=== PATIENT | male | born 1935 | race Caucasian/White ===

== ENCOUNTER → 2017-11-25 10:39 | Outpatient (CLI) | payer MEDICARE, OTHER, SELFPAY ==
[2017-11-25 11:20] LABS: Creatine Kinase 98 U/L (55-170); Magnesium 1.9 mg/dL (1.6-2.3)
== END ==
PROVIDERS: Family Provider Family Medicine; PCP Family Medicine; Visit Provider Internal Medicine Cardiovascular Disease
DX: E78.5 Hyperlipidemia, unspecified (principal); I10 Essential (primary) hypertension
CPT/HCPCS: 36415; 82550; 83735

== ENCOUNTER → 2017-12-02 13:03 | Outpatient (CLI) | payer MEDICARE, OTHER, SELFPAY ==
--- NOTE | 2017-12-02 14:16 | PM.TREADMILL ---
Cardiac Stress Test Report Referral & Results Date Patient Seen: 12/02/17 Time Patient Seen: 14:17 Requesting provider: Mariama Singh Indication: Atrial fibrillation Rest ECG: Unremarkable Procedure Note: After both written and verbal informed consent the patient had an IV started by the diagnostic imaging RN and then was hooked up to the treadmill monitoring system. The patient was then injected with the Pascale scan material. The Cardiolite was then immediately administered. The patient spent an approximately 2 min with upper extremity exercise to increase circulation. The patient had a normal response to all infused materials. Impression: Normal response to infuse materials. No symptoms. No dysrhythmia noted. Perfusion imaging will be reported separately Please note: Actual ECG tracings can be found in the PACS system.
--- NOTE | 2017-12-03 18:14 | DI.NM.S_ITS ---
DATE OF SERVICE: 12/02/2017 PROCEDURE: Pharmacological perfusion study. INDICATIONS: Chest pain with underlying sick sinus syndrome, permanent pacemaker, hypertension, hyperlipidemia, and diabetes mellitus.. RADIOPHARMACEUTICAL: 25.3 mCi technetium-99m Myoview IV was injected at stress and 24.9 mCi technetium-99m Myoview IV was injected at rest. CARDIAC STRESS: Patient underwent pharmacological perfusion study under the supervision of an attending staff using standard IV Lexiscan as per protocol. He remained hemodynamically stable. Tolerated the procedure. There was no significant symptoms. RAW DATA: There was increased subdiaphragmatic activity. Patient's weight is 266 pounds GATED STUDY: Resting stress LV ejection fraction 53%. Stress LV ejection fraction 62%. I don't see any significant wall motion abnormalities. There is no transient ischemic dilatation. TID ratio is 1.00, which is within normal limits. Resting LV end-diastolic volume is 113 mL. Lung/heart ratio is 0.44, which is within normal limits. MYOCARDIAL PERFUSION SCAN: Stress supine and resting supine images were compared to each other. Resting supine images revealed small-sized mildly decreased perfusion of basil inferior wall extending into the basal inferior lateral wall as well as moderately decreased perfusion of distal anterior septum. During stress supine, distal anteroseptal defect got significantly improved. However, patient remain to have [id number] decreased perfusion of basal inferior wall and mildly decreased perfusion of basal inferior lateral wall. CONCLUSION: Patient has predominantly fixed small-sized mildly decreased perfusion of basal inferior lateral wall as well as basal inferior wall which appears to be a little bit worse during stress, especially in the basal inferior wall. However, I'm not convinced with significant ischemic burden. Those fixed defects are in the area of basal inferior wall and basal inferior lateral wall. Patient has increased subdiaphragmatic activity. There is increased uptake near the inferior border of the heart. Inferior wall is moving well. There is a possibility of persistent tissue attenuation artifact. We don't have prone images to distinguish infarction versus tissue attenuation artifact. Overall LV function is preserved. No transient ischemic dilatation. Hence, I will call this study overall low-risk myocardial perfusion study. Clinical correlation is recommended. Will Skinner - JASPER/chary/ doc#: [id number]/job#: [id number] dd: 12/03/2017 12:38:00 dt: 12/03/2017 17:46:00 DICTATING MD/COPIES TO: Mariama Singh MD COPIES MNE: BJ
== END ==
PROVIDERS: Family Provider Family Medicine; PCP Family Medicine; Visit Provider Internal Medicine Cardiovascular Disease
DX: I49.5 Sick sinus syndrome (principal); I48.91 Unspecified atrial fibrillation; R07.89 Other chest pain
CPT/HCPCS: 78452; 93016; 93017; 93018; A9502; J2785

== ENCOUNTER → 2017-12-06 08:10 | Outpatient (CLI) | payer MEDICARE, OTHER, SELFPAY ==
--- NOTE | 2017-12-06 | DI.ECHO.S_ITS ---
[facility] +---------+ : : [address] : : : : [id number] : : : : Phone: [phone]+ Echocardiogram Report + + :Name: NAOMI MARIE Study Date: 12/06/2017 Height: 71 in : :[facility] Exam Location: [facility] Weight: 266 lb : : Gender: Male BSA: 2.4 m2 : :: 1935 Age: 82 yrs BP: 162/85 mmHg: :Reason For Study: TACHY-KOLBY SYNDROME : : Performed By: Jayant Guy : :Referring: ERIC SEXTON : + + Interpretation Summary The left ventricle is normal in size. The ejection fraction is estimated to be 60-65%. There has been no significant change in LV EF since the previous study. Borderline right ventricular enlargement. The right ventricular systolic function is normal. There is a pacemaker lead in the right ventricle. No significant valvular pathology seen. Procedure: A two-dimensional transthoracic echocardiogram with color flow and Doppler was performed. The study quality was technically difficult. Comparison is made with the echocardiogram of 09/27/13. A contrast injection of Definity was performed to improve assessment of LV function. The patient was in normal sinus rhythm during the exam. Left Ventricle: The left ventricle is normal in size. Left ventricular wall thickness is mildly increased. There is no thrombus. The ejection fraction is estimated to be 60-65%. There has been no significant change since the previous study. There are no focal wall motion abnormalities. MV E/A: 1.1 Med Peak E' Don: 15.0 cm/sec E/E' med: 6.3. Right Ventricle: Borderline right ventricular enlargement. There is a pacemaker lead in the right ventricle. The right ventricular systolic function is normal. Atria: The left atrium is mildly dilated. The left atrium has remained unchanged in size since the prior echo exam. Right atrial size is normal. The interatrial septum is intact with no evidence for an atrial septal defect. Mitral Valve: There is mild mitral annular calcification. There is mild mitral regurgitation. Aortic Valve: The aortic valve is trileaflet. The aortic valve opens well. There is no aortic valve stenosis. No aortic regurgitation is present. Tricuspid Valve: The tricuspid valve is normal. There is mild tricuspid regurgitation. Right ventricular systolic pressure is estimated to be 19 mmHg plus the clinically estimated CVP which cannot be estimated on this exam. Pulmonic Valve: The pulmonic valve is not well seen, but is grossly normal. There is mild pulmonic regurgitation. Great Vessels: The aortic root is normal size. The ascending aorta is mildly enlarged. The pulmonary artery is normal size. The inferior vena cava was not well visualized. Pericardium/ Pleura There is no pericardial effusion. There is no pleural effusion. MMode/2D Measurements & Calculations LVIDd: 5.3 cm Ao root diam: 3.6 cm LVIDs: 3.6 cm Aortic Jxn: 3.1 cm FS: 32.8 % asc Aorta Diam: 3.6 cm EPSS: 0.97 cm IVSd: 1.1 cm LVPWd: 0.98 cm LV vega. diameter/BSA (cm/m^2): 2.2 LV sys. diameter/BSA (cm/m^2): 1.5 LA dimension: 3.9 cm RA long axis: 4.6 cm LA A2 area: 27.2 cm2 RA area: 19.6 cm2 LA A4 area: 24.1 cm2 RA vol: 71.1 ml LA length (vol): 6.1 cm RA : 29.8 ml/m2 LA vol: 90.8 ml LA vol index: 38.2 ml/m2 RVD1 (basal): 4.3 cm RVD2 (mid): 3.9 cm Doppler Measurements & Calculations Ao V2 max: 132.6 cm/sec MV E max don: 94.5 cm/sec Ao V2 mean: 102.5 cm/sec MV A max don: 89.6 cm/sec Ao max P.0 mmHg MV E/A: 1.1 Ao mean P.5 mmHg Med Peak E' Don: 15.0 cm/sec Ao V2 VTI: 32.4 cm E/E' med: 6.3 Lat Peak E' Don: 5.8 cm/sec E/E' lat: 16.3 E/e' average: 11.3 MV dec time: 0.22 sec TR max don: 218.6 cm/sec TR max P.1 mmHg PA V2 max: 66.2 cm/sec PA V2 mean: 48.8 cm/sec PA mean P.0 mmHg PA pr(Accel): 51.6 mmHg PA Accel Time: 0.07 sec Reading Physician:COREY
== END ==
PROVIDERS: Family Provider Family Medicine; PCP Family Medicine; Visit Provider Internal Medicine Cardiovascular Disease
DX: I49.5 Sick sinus syndrome (principal); I08.1 Rheumatic disorders of both mitral and tricuspid valves; Z95.0 Presence of cardiac pacemaker
CPT/HCPCS: 36415; 80048; 93306; Q9957

== ENCOUNTER → 2017-12-06 09:56 | Outpatient (CLI) | payer MEDICARE, OTHER, SELFPAY ==
[2017-12-06 10:55] LABS: Blood Urea Nitrogen 22 mg/dL (9-20); Calcium 9.9 mg/dL (8.4-10.2); Carbon Dioxide 28 mmol/L (22-32); Chloride 101 mmol/L (98-107); Estimated Glomerular Filt Rate > 60.0 mL/min (>60); Glucose 133 mg/dL (80-110); HEMOLYSIS < 15 (0-50); Potassium 4.2 mmol/L (3.4-5.1); Sodium 141 mmol/L (137-145)
== END ==
PROVIDERS: Family Provider Family Medicine; PCP Family Medicine; Visit Provider Internal Medicine Cardiovascular Disease
DX: I10 Essential (primary) hypertension (principal)
CPT/HCPCS: 36415; 80048

== ENCOUNTER → 2018-07-01 11:19 | Outpatient (CLI) | payer MEDICARE, OTHER, SELFPAY ==
--- NOTE | 2018-07-01 | DI.RAD.S_ITS ---
PROCEDURE: XR CHEST 2V INDICATIONS: SHORTNESS OF BREATH AND RIGHT SHOULDER PAIN TECHNIQUE: 2 views of the chest were acquired. COMPARISON: [facility], , CHEST 1 VIEW, 01/28/2014, 15:30. FINDINGS: Surgical changes and devices: There is a cardiac pacemaker in expected position. Lungs and pleura: Lungs are clear. No pleural effusions or pneumothorax. Mediastinum: Mediastinal contours are normal. Heart size is normal. Bones and chest wall: No suspicious bony abnormalities. Soft tissues appear unremarkable. IMPRESSION: No acute cardiopulmonary disease. Dictated by: Larry Ndiaye M.D. on 07/01/2018 at 14:47 Approved by: Larry Ndiaye M.D. on 07/01/2018 at 14:48
--- NOTE | 2018-07-01 | DI.RAD.S_ITS ---
PROCEDURE: XR SHOULDER RT MIN 2V INDICATIONS: SHORTNESS OF BREATH AND RIGHT SHOULDER PAIN TECHNIQUE: 3 views of the shoulder were acquired. COMPARISON: [facility], CR, XR CHEST 2V, 07/01/2018, 11:28. FINDINGS: Bones: No fractures or dislocations. No suspicious bony lesions. There are undersurface osteophytes in the distal clavicle and acromion. Moderate degenerative joint of the coracoclavicular joint and glenohumeral joint. Visualized ribs appear intact. Soft tissues: No suspicious soft tissue calcifications. IMPRESSION: 1. Moderate degenerative joint disease. 2. Undersurface osteophytes in the distal clavicle and acromion, which could impinge the rotator cuff tendons. If clinical symptoms persist or clinical suspicion for rotator cuff tendon pathology is high, MRI is suggested for further evaluation. Dictated by: Larry Ndiaye M.D. on 07/01/2018 at 15:09 Approved by: Larry Ndiaye M.D. on 07/01/2018 at 15:12
== END ==
PROVIDERS: Family Provider Family Medicine; PCP Family Medicine; Visit Provider Family Medicine
DX: M25.511 Pain in right shoulder (principal); M19.011 Primary osteoarthritis, right shoulder; M25.711 Osteophyte, right shoulder; R06.02 Shortness of breath; Z95.0 Presence of cardiac pacemaker
CPT/HCPCS: 71046; 73030

== ENCOUNTER → 2018-07-08 13:11 | Outpatient (REF) | payer MEDICARE, OTHER, SELFPAY | LOC: LAB 13:11 | PROVIDERS: Family Provider Family Medicine; PCP Family Medicine; Visit Provider Family Medicine | DX: R05 Cough (principal) | CPT/HCPCS: 87400 ==

== ENCOUNTER → 2018-07-16 10:38 | Outpatient (CLI) | payer MEDICARE, OTHER, SELFPAY ==
--- NOTE | 2018-07-16 | DI.US.S_ITS ---
PROCEDURE: US ARTERIAL DUPLEX LE BI INDICATIONS: CLAUDICATION TECHNIQUE: Color and pulse Doppler interrogation was performed of both lower extremity arterial systems, with image documentation. COMPARISON: None. FINDINGS: Right lower extremity: Common femoral artery: 113 cm/sec, with triphasic flow. Deep femoral artery: 120 cm/sec, with triphasic flow. Proximal superficial femoral artery: 125 cm/sec, with triphasic flow. Mid superficial femoral artery: 128 cm/sec, with triphasic flow. Distal superficial femoral artery: 87 cm/sec, with triphasic flow. Popliteal artery: 68 cm/sec, with triphasic flow. Posterior tibial artery: 93 cm/sec, with triphasic flow. Anterior tibial artery/dorsalis pedis: 81 cm/sec, with triphasic flow. Ansari-scale imaging description: No hemodynamically significant stenosis Left lower extremity: Common femoral artery: 149 cm/sec, with triphasic flow. Deep femoral artery: 79 cm/sec, with triphasic flow. Proximal superficial femoral artery: 117 cm/sec, with triphasic flow. Mid superficial femoral artery: 125 cm/sec, with triphasic flow. Distal superficial femoral artery: 105 cm/sec, with triphasic flow. Popliteal artery: 82 cm/sec, with triphasic flow. Posterior tibial artery: 125 cm/sec, with triphasic flow. Anterior tibial artery/dorsalis pedis: 84 cm/sec, with triphasic flow. Ansari-scale imaging description: No hemodynamically significant stenosis IMPRESSION: No hemodynamically significant stenosis in the bilateral lower extremity arteries. No findings to explain patient's claudication symptoms. Dictated by: Shruthi Gallagher M.D. on 07/16/2018 at 13:31 Approved by: Shruthi Gallagher M.D. on 07/16/2018 at 13:39
== END ==
PROVIDERS: Family Provider Family Medicine; PCP Family Medicine; Visit Provider Family Medicine
DX: I73.9 Peripheral vascular disease, unspecified (principal)
CPT/HCPCS: 93925

== ENCOUNTER 2018-09-01 13:45 | Outpatient (RCR) | payer MEDICARE, OTHER, SELFPAY ==
--- NOTE | 2018-08-13 16:59 | PT.OIE ---
Current Diagnoses Primary osteoarthritis, right shoulder (08/13/18) Pain in right shoulder (08/13/18) Stiffness of right shoulder, not elsewhere classified (08/13/18) Muscle weakness (generalized) (08/13/18) Complete rotator cuff tear or rupture of right shoulder, not specified as traumatic (08/13/18) Provider Visit Care Team Role Provider Type Yoly Pereira MD Family Provider Physician Primary Care Provider Specialty: Family Practice Address: [address] [place] [address], [id number] Email: Javy Breaux MD Attending Provider Physician Specialty: Orthopedic Surgery Address: [address] [place] [address], [id number] Email: [email or web address] Physical Therapy Initial Evaluation PT-OP-A Visit Information Start: 08/13/18 16:28 Freq: Status: Active Protocol: Document 08/13/18 15:15 DCW (Rec: 08/13/18 16:59 DCW [id number]) Out-Patient Physical Therapy Visit Information Visit Information Visit Type Initial Evaluation Visit Start Time 15:15 Visit Stop Time 16:00 Total Visit Minutes 45 Visit Number 1 Number of METAL FABRICATING SUPERVISOR Visits 0 Evaluation Information Evaluation Date 08/13/18 PT-OP-B Current Condition Start: 08/13/18 16:28 Freq: Status: Active Protocol: Document 08/13/18 15:15 DCW (Rec: 08/13/18 16:59 [facility] [id number]) Current Condition History of Current Condition Onset Date Multi-year history Current Complaints Right shoulder pain and stiffness History of Current Condition Pt is an 83 year old male presenting to skilled therapy with a multi-year history of right shoulder pain, weakness, and limited ROM. Pt reports he was told years ago that he had a rotator cuff tear, but now it's finally getting to the point where it is hurting, and seems to be getting worse. Pt reports that he will occasionally experience pain from his lateral neck to his right elbow, and his pain is at its worst when lifting his arm up overhead, or raising an item to countertop level. Pt reports his pain does not limit him from doing anything, he just works through the pain, but does admit that he will occasionally need to use his left arm to lift his right . Prior Treatments and Tests Shoulder X-ray: Moderate degenerative joint disease, undersurface osteophytes in the distal clavicle and acromion, which could impinge the rotator cuff tendons per Larry Ndiaye M.D. on 07/01/2018 Treatment Goals Patient/Caregiver Goals Pt would like to decrease his shoulder pain and improve his mobility. Prior Functional Status Baseline Function- ADL's Independent Baseline Function- Mobility Independent Current Functional Impairments (Reported) Functional Limitations- ADL's Increased pain reaching up to turn off lights or lifting objects to countertop level PT-OP-C Subjective Start: 08/13/18 16:28 Freq: Status: Active Protocol: Document 08/13/18 15:15 DCW (Rec: 08/13/18 16:59 DCW [id number]) OP-PT Subjective Patient Comments Patient Comments I have lots of issues, but I guess I'm here for my shoulder . Patient Questionnaires Quick Dash- Upper Extremity Quick Dash UE Score 11.36 OP-PT Pain Assessment Pain Assessment Grid Paper Pain Assessment Grid Completed Yes Location Right Shoulder Intensity 4 Scale Used Numeric (1 - 10) Description Aching Dull PT-OP-E Functional Tests Start: 08/13/18 16:28 Freq: Status: Active Protocol: Document 08/13/18 15:15 DCW (Rec: 08/13/18 16:59 DCW [id number]) Functional Tests Apley's Scratch Test Action 1: The subject is instructed to touch the opposite shoulder with his/her hand. This motion checks Glenohumeral adduction, internal rotation , horizontal adduction and scapular protraction Action 2: The subject is instructed to place his/her arm overhead and reach behind the neck to touch his/her upper back. This motion checks Glenohumeral abduction, external rotation and scapular upward rotation and elevation. Action 3: The subject puts his/her hand on the lower back and reaches upward as far as possible. This motion checks glenohumeral adduction, internal rotation and scapular retraction with downward rotation Action 1- Left Reach to lateral opposite shoulder Action 1- Right Reach to anterior opposite shoulder Action 2- Left Reach to T2 Action 2- Right Reach to C4 Action 3- Left Reach to T12 Action 3- Right Reach to L4 PT-OP-F Manual Assessment Start: 08/13/18 16:28 Freq: Status: Active Protocol: Document 08/13/18 15:15 DCW (Rec: 08/13/18 16:59 DCW [id number]) Manual Assessments Soft Tissue Assessment Soft Tissue Mobility Assessment Severe, visible tone of right upper trap at later base of neck PT-OP-K Range of Motion Start: 08/13/18 16:28 Freq: Status: Active Protocol: Document 08/13/18 15:15 DCW (Rec: 08/13/18 16:59 DCW [id number]) Shoulder Goniometric Range of Motion Shoulder Measured in Degrees Right Active Shoulder ROM WFL No Testing Position Sitting Flexion 108 Abduction 103 External Rotation at 0 degrees Abduction 50 Left Active Shoulder ROM WFL No Testing Position Sitting Flexion 120 Abduction 112 External Rotation at 0 degrees Abduction 72 Shoulder ROM Limitations Shoulder ROM Limitations Soft Tissue Tightness Bony Restriction Muscle Weakness Muscle Tone Pain PT-OP-L Special Tests Start: 08/13/18 16:28 Freq: Status: Active Protocol: Document 08/13/18 15:15 DCW (Rec: 08/13/18 16:59 DCW [id number]) Special Tests Shoulder Special Tests Painful Arc Test Results Positive Passive ER Rotator Cuff Test Results Positive Lift-Off Rotator Cuff Test Results Negative [place] Ken Impingement Test Results Negative Empty Can Test Results Negative Drop Arm Rotator Cuff Test Results Positive Belly Press Test Results Negative AC Joint Compression Test Results Pain PT-OP-M Strength Start: 08/13/18 16:28 Freq: Status: Active Protocol: Document 08/13/18 15:15 DCW (Rec: 08/13/18 16:59 DCW [id number]) Shoulder Strength Shoulder Manual Muscle Testing Right Flexion 4- Good- Abduction (C5) 3+ Fair+ External Rotation 4- Good- Internal Rotation 5 Normal Left Flexion 4 Good Abduction (C5) 4- Good- External Rotation 5 Normal Internal Rotation 5 Normal PT-OP-Q Treatments Start: 08/13/18 16:28 Freq: Status: Active Protocol: Document 08/13/18 15:15 DCW (Rec: 08/13/18 16:59 DCW [id number]) Therapeutic Exercises Sidelying Exercises Shoulder External Rotation Sidelying Exercise Name Shoulder ER Side bilateral Resistance Lv 2 Equipment Used T-band Standing Exercises Shoulder Internal Rotation Standing Exercise Name Shoulder IR Resistance Lv 2 Equipment Used T-band Shoulder Flexion Standing Exercise Name Flexion Resistance Lv 2 Equipment Used T-band PT-OP-T Assessment and Plan Start: 08/13/18 16:28 Freq: Status: Active Protocol: Document 08/13/18 15:15 DCW (Rec: 08/13/18 16:59 DCW [id number]) Physical Therapy Assessment Rehab Potential Rehabilitation Potential Good Evaluation Complexity Number of Personal Factors/Comorbidities 1-2 Number of Body Systems Impaired 3 Clinical Presentation at Evaluation Evolving Impairments Impairments Activity Tolerance Functional Activities Pain ROM Soft Tissue Mobility Strength Goals Five Impairment bilateral decreased shoulder ROM Short Term Goal (STG) Shoulder flexion bilaterally to 135? STG Duration 09/12/18 Grating Machine Operator Goal (LTG) Shoulder abduction bilaterally to 125? LTG Duration 10/13/18 Four Impairment bilateral shoulder weakness Grating Machine Operator Goal (LTG) B shoulder MMT equal to or greater than 4/5 LTG Duration 10/13/18 Three Impairment Pain with lifting Fdc Goal (LTG) Pt to pickle sorter milk carton and place on counter with no increased pain LTG Duration 10/13/18 Two Impairment Pt has difficulty reaching up to turn off lights Grating Machine Operator Goal (LTG) Pt to report no increased pain turning off his lights LTG Duration 10/13/18 One Impairment Pt does not have an appropriate home exercise program Short Term Goal (STG) Pt to be independent and complaint with an appropriate HEP STG Duration 09/12/18 Assessment Summary Assessment Pt presents with signs and symptoms likely consistent with a 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 Pt's special tests were largely suggestive of supraspinaus involvement. Pt also presents with bilateral shoulder weakness, limited ROM, right shoulder pain, and severe tone at right upper trap, likely due to multiple years of over- compensation. Pt appears very motivated to work on improving strength and ROM to improve his ability to perform pain- free ADLs. Additionally, as per his referral, his wooden cane was assessed for proper height, and may be ~1/2 inch high, but is fairly well within an appropriate height. Pt should benefit from shoulder strengthening, ROM/ flexibility, and manual therapy to reduce upper trap tone. Pt does have a pacemaker , and therefore e-stim in contraindicated. Physical Therapy Plan Frequency and Duration Frequency of Treatment 2x/Week Duration of Treatment 2 months Plan of Care Start Date 08/13/18 Plan of Care End Date 10/13/18 Therapeutic Interventions Therapeutic Interventions Home Exercise Program Joint Mobilizations Manual Therapy Patient/Caregiver Education Self-Care/Home Management Soft Tissue Mobilization Therapeutic Activities Therapeutic Exercises Modalities Cold Pack/Ice Massage Hot Packs Next Visit Focus/Plan Next Note Type Treatment Note Next Visit Plan Shoulder girdle strengthening, stretching, manual therapy to decrease UT tone.
--- NOTE | 2018-08-13 17:00 | PT.OPPOC ---
Current Diagnoses Primary osteoarthritis, right shoulder (08/13/18) Pain in right shoulder (08/13/18) Stiffness of right shoulder, not elsewhere classified (08/13/18) Muscle weakness (generalized) (08/13/18) Complete rotator cuff tear or rupture of right shoulder, not specified as traumatic (08/13/18) Provider Visit Care Team Role Provider Type Yoly Pereira MD Family Provider Physician Primary Care Provider Specialty: Family Practice Address: [address] [place] [address], [id number] Email: Javy Breaux MD Attending Provider Physician Specialty: Orthopedic Surgery Address: [address] [place] [address], [id number] Email: [email or web address] Plan Of Care PT-OP-T Assessment and Plan Start: 08/13/18 16:28 Freq: Status: Active Protocol: Document 08/13/18 15:15 DCW (Rec: 08/13/18 16:59 DCW [id number]) Physical Therapy Assessment Rehab Potential Rehabilitation Potential Good Evaluation Complexity Number of Personal Factors/Comorbidities 1-2 Number of Body Systems Impaired 3 Clinical Presentation at Evaluation Evolving Impairments Impairments Activity Tolerance Functional Activities Pain ROM Soft Tissue Mobility Strength Goals Five Impairment bilateral decreased shoulder ROM Short Term Goal (STG) Shoulder flexion bilaterally to 135? STG Duration 09/12/18 Fpc Goal (LTG) Shoulder abduction bilaterally to 125? LTG Duration 10/13/18 Four Impairment bilateral shoulder weakness Fpc Goal (LTG) B shoulder MMT equal to or greater than 4/5 LTG Duration 10/13/18 Three Impairment Pain with lifting Fpc Goal (LTG) Pt to poultry picker milk carton and place on counter with no increased pain LTG Duration 10/13/18 Two Impairment Pt has difficulty reaching up to turn off lights Landscape Technician Goal (LTG) Pt to report no increased pain turning off his lights LTG Duration 10/13/18 One Impairment Pt does not have an appropriate home exercise program Short Term Goal (STG) Pt to be independent and complaint with an appropriate HEP STG Duration 09/12/18 Assessment Summary Assessment Pt presents with signs and symptoms likely consistent with a 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 Pt's special tests were largely suggestive of supraspinaus involvement. Pt also presents with bilateral shoulder weakness, limited ROM, right shoulder pain, and severe tone at right upper trap, likely due to multiple years of over- compensation. Pt appears very motivated to work on improving strength and ROM to improve his ability to perform pain- free ADLs. Additionally, as per his referral, his wooden cane was assessed for proper height, and may be ~1/2 inch high, but is fairly well within an appropriate height. Pt should benefit from shoulder strengthening, ROM/ flexibility, and manual therapy to reduce upper trap tone. Pt does have a pacemaker , and therefore e-stim in contraindicated. Physical Therapy Plan Frequency and Duration Frequency of Treatment 2x/Week Duration of Treatment 2 months Plan of Care Start Date 08/13/18 Plan of Care End Date 10/13/18 Therapeutic Interventions Therapeutic Interventions Home Exercise Program Joint Mobilizations Manual Therapy Patient/Caregiver Education Self-Care/Home Management Soft Tissue Mobilization Therapeutic Activities Therapeutic Exercises Modalities Cold Pack/Ice Massage Hot Packs Next Visit Focus/Plan Next Note Type Treatment Note Next Visit Plan Shoulder girdle strengthening, stretching, manual therapy to decrease UT tone. Plan of Care Dates Plan of Care Start Date 08/13/18 Plan of Care End Date 10/13/18 Please Sign and Return: I have reviewed this Plan of Care and certify that the skilled therapy services above are required to meet the patient?s needs. Physician Signature Date Printed Name and Credentials Clinical Instructor Signature Printed Name and Credentials
--- NOTE | 2018-08-15 09:00 | PT.OTN ---
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, not specified as traumatic (08/15/18) Physical Therapy Treatment Note PT-OP-A Visit Information Start: 08/13/18 16:28 Freq: Status: Active Protocol: Document 08/15/18 09:00 RCC (Rec: 08/15/18 13:54 RCC [email or web address]) Out-Patient Physical Therapy Visit Information Visit Information Visit Type Treatment Note Visit Start Time 09:00 Visit Stop Time 09:45 Total Visit Minutes 45 Visit Number 2 Number of BILLET RECORDER Visits 0 Evaluation Information Evaluation Date 08/13/18 Precautions Precautions Pacemaker PT-OP-B Current Condition Start: 08/13/18 16:28 Freq: Status: Active Protocol: Document 08/13/18 15:15 DCW (Rec: 08/13/18 16:59 DCW [id number]) Current Condition History of Current Condition Onset Date Multi-year history Current Complaints Right shoulder pain and stiffness History of Current Condition Pt is an 83 year old male presenting to skilled therapy with a multi-year history of right shoulder pain, weakness, and limited ROM. Pt reports he was told years ago that he had a rotator cuff tear, but now it's finally getting to the point where it is hurting, and seems to be getting worse. Pt reports that he will occasionally experience pain from his lateral neck to his right elbow, and his pain is at its worst when lifting his arm up overhead, or raising an item to countertop level. Pt reports his pain does not limit him from doing anything, he just works through the pain, but does admit that he will occasionally need to use his left arm to lift his right . Prior Treatments and Tests Shoulder X-ray: Moderate degenerative joint disease, undersurface osteophytes in the distal clavicle and acromion, which could impinge the rotator cuff tendons per Larry Ndiaye M.D. on 07/01/2018 Treatment Goals Patient/Caregiver Goals Pt would like to decrease his shoulder pain and improve his mobility. Prior Functional Status Baseline Function- ADL's Independent Baseline Function- Mobility Independent Current Functional Impairments (Reported) Functional Limitations- ADL's Increased pain reaching up to turn off lights or lifting objects to countertop level PT-OP-C Subjective Start: 08/13/18 16:28 Freq: Status: Active Protocol: Document 08/15/18 09:00 RCC (Rec: 08/15/18 13:54 RCC [email or web address]) OP-PT Subjective Patient Comments Patient Comments Pt states he forgot his exercises, even though he denied a copy of HEP last visit. Upon attempting to get to supine, pt c/o dizziness, had to lay on L side for treatment when not sitting or standing. PT-OP-E Functional Tests Start: 08/13/18 16:28 Freq: Status: Active Protocol: Document 08/13/18 15:15 DCW (Rec: 08/13/18 16:59 DCW [id number]) Functional Tests Apley's Scratch Test Action 1: The subject is instructed to touch the opposite shoulder with his/her hand. This motion checks Glenohumeral adduction, internal rotation , horizontal adduction and scapular protraction Action 2: The subject is instructed to place his/her arm overhead and reach behind the neck to touch his/her upper back. This motion checks Glenohumeral abduction, external rotation and scapular upward rotation and elevation. Action 3: The subject puts his/her hand on the lower back and reaches upward as far as possible. This motion checks glenohumeral adduction, internal rotation and scapular retraction with downward rotation Action 1- Left Reach to lateral opposite shoulder Action 1- Right Reach to anterior opposite shoulder Action 2- Left Reach to T2 Action 2- Right Reach to C4 Action 3- Left Reach to T12 Action 3- Right Reach to L4 PT-OP-F Manual Assessment Start: 08/13/18 16:28 Freq: Status: Active Protocol: Document 08/13/18 15:15 DCW (Rec: 08/13/18 16:59 DCW [id number]) Manual Assessments Soft Tissue Assessment Soft Tissue Mobility Assessment Severe, visible tone of right upper trap at later base of neck PT-OP-K Range of Motion Start: 08/13/18 16:28 Freq: Status: Active Protocol: Document 08/13/18 15:15 DCW (Rec: 08/13/18 16:59 DCW [id number]) Shoulder Goniometric Range of Motion Shoulder Measured in Degrees Right Active Shoulder ROM WFL No Testing Position Sitting Flexion 108 Abduction 103 External Rotation at 0 degrees Abduction 50 Left Active Shoulder ROM WFL No Testing Position Sitting Flexion 120 Abduction 112 External Rotation at 0 degrees Abduction 72 Shoulder ROM Limitations Shoulder ROM Limitations Soft Tissue Tightness Bony Restriction Muscle Weakness Muscle Tone Pain PT-OP-L Special Tests Start: 08/13/18 16:28 Freq: Status: Active Protocol: Document 08/13/18 15:15 DCW (Rec: 08/13/18 16:59 DCW [id number]) Special Tests Shoulder Special Tests Painful Arc Test Results Positive Passive ER Rotator Cuff Test Results Positive Lift-Off Rotator Cuff Test Results Negative Henderson Ken Impingement Test Results Negative Empty Can Test Results Negative Drop Arm Rotator Cuff Test Results Positive Belly Press Test Results Negative AC Joint Compression Test Results Pain PT-OP-M Strength Start: 08/13/18 16:28 Freq: Status: Active Protocol: Document 08/13/18 15:15 DCW (Rec: 08/13/18 16:59 DCW [id number]) Shoulder Strength Shoulder Manual Muscle Testing Right Flexion 4- Good- Abduction (C5) 3+ Fair+ External Rotation 4- Good- Internal Rotation 5 Normal Left Flexion 4 Good Abduction (C5) 4- Good- External Rotation 5 Normal Internal Rotation 5 Normal PT-OP-Q Treatments Start: 08/13/18 16:28 Freq: Status: Active Protocol: Document 08/15/18 09:00 RCC (Rec: 08/15/18 13:54 RCC [email or web address]) Therapeutic Exercises Sidelying Exercises Shoulder abduction Sidelying Exercise Name shoulder abduction Side right Resistance 0 Reps/Minutes 10 Shoulder External Rotation Sidelying Exercise Name Shoulder ER Side bilateral Resistance Lv 1 Equipment Used T-band Sitting Exercises Shoulder ER Side bilateral Resistance Lv 1 Equipment Used T-band Scapular retraction Side bilateral Resistance Lv 1 Equipment Used T-band Upper trap stretch Side right Reps/Minutes 2x30 sec Comments sitting on hand; manual overpressure for increased stretch Standing Exercises Shoulder Internal Rotation Standing Exercise Name Shoulder IR Resistance Lv 2 Equipment Used T-band Shoulder Flexion Standing Exercise Name Flexion Resistance Lv 1 Equipment Used T-band Manual Therapy Treatment Soft Tissue Mobilization Right upper trap Mobilization Type Rolling Sustained Pressure Trigger Point Release Intensity/Depth Moderate Body Position Sidelying Comments left sidelying PT-OP-R Modalities Start: 08/13/18 16:28 Freq: Status: Active Protocol: Document 08/15/18 09:00 RCC (Rec: 08/15/18 13:54 RCC [email or web address]) Hot Pack/Cold Pack Treatment Cold Pack Location R shoulder Patient Position Sitting Treatment Duration (minutes) 10 Patient Tolerance Good PT-OP-T Assessment and Plan Start: 08/13/18 16:28 Freq: Status: Active Protocol: Document 08/15/18 09:00 RCC (Rec: 08/15/18 13:54 RCC [email or web address]) Physical Therapy Assessment Assessment Summary Assessment Pt with c/o dizziness upon attempting to go L sidelying to supine, but went away staying in L sidelying for 1 min. Pt may benefit from vestibular assessment given onset dizziness with rolling on mat table. Pt reviewed HEP and given handout today. Decreased some resistance to level 1 theraband due to mild c/o pain. Physical Therapy Plan Frequency and Duration Frequency of Treatment 2x/Week Duration of Treatment 2 months Plan of Care Start Date 08/13/18 Plan of Care End Date 10/13/18 Next Visit Focus/Plan Next Note Type Treatment Note Next Visit Plan shoulder girdle strengthening; possible vestibular assessment
--- NOTE | 2018-08-20 16:00 | PT.OTN ---
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, not specified as traumatic (08/20/18) Physical Therapy Treatment Note PT-OP-A Visit Information Start: 08/13/18 16:28 Freq: Status: Active Protocol: Document 08/20/18 15:15 DCW (Rec: 08/20/18 16:00 DCW [id number]) Out-Patient Physical Therapy Visit Information Visit Information Visit Type Treatment Note Visit Start Time 15:15 Visit Stop Time 16:00 Total Visit Minutes 45 Visit Number 3 Number of [employer] COACH Visits 0 Evaluation Information Evaluation Date 08/13/18 Precautions Precautions Pacemaker PT-OP-B Current Condition Start: 08/13/18 16:28 Freq: Status: Active Protocol: Document 08/13/18 15:15 DCW (Rec: 08/13/18 16:59 DCW [id number]) Current Condition History of Current Condition Onset Date Multi-year history Current Complaints Right shoulder pain and stiffness History of Current Condition Pt is an 83 year old male presenting to skilled therapy with a multi-year history of right shoulder pain, weakness, and limited ROM. Pt reports he was told years ago that he had a rotator cuff tear, but now it's finally getting to the point where it is hurting, and seems to be getting worse. Pt reports that he will occasionally experience pain from his lateral neck to his right elbow, and his pain is at its worst when lifting his arm up overhead, or raising an item to countertop level. Pt reports his pain does not limit him from doing anything, he just works through the pain, but does admit that he will occasionally need to use his left arm to lift his right . Prior Treatments and Tests Shoulder X-ray: Moderate degenerative joint disease, undersurface osteophytes in the distal clavicle and acromion, which could impinge the rotator cuff tendons per Larry Ndiaye M.D. on 07/01/2018 Treatment Goals Patient/Caregiver Goals Pt would like to decrease his shoulder pain and improve his mobility. Prior Functional Status Baseline Function- ADL's Independent Baseline Function- Mobility Independent Current Functional Impairments (Reported) Functional Limitations- ADL's Increased pain reaching up to turn off lights or lifting objects to countertop level PT-OP-C Subjective Start: 08/13/18 16:28 Freq: Status: Active Protocol: Document 08/20/18 15:15 DCW (Rec: 08/20/18 16:00 DCW [id number]) OP-PT Subjective Patient Comments Patient Comments Pt reports he thinks that he over-did his exercises at home , but it felt great after his last PT session. PT-OP-E Functional Tests Start: 08/13/18 16:28 Freq: Status: Active Protocol: Document 08/13/18 15:15 DCW (Rec: 08/13/18 16:59 DCW [id number]) Functional Tests Apley's Scratch Test Action 1: The subject is instructed to touch the opposite shoulder with his/her hand. This motion checks Glenohumeral adduction, internal rotation , horizontal adduction and scapular protraction Action 2: The subject is instructed to place his/her arm overhead and reach behind the neck to touch his/her upper back. This motion checks Glenohumeral abduction, external rotation and scapular upward rotation and elevation. Action 3: The subject puts his/her hand on the lower back and reaches upward as far as possible. This motion checks glenohumeral adduction, internal rotation and scapular retraction with downward rotation Action 1- Left Reach to lateral opposite shoulder Action 1- Right Reach to anterior opposite shoulder Action 2- Left Reach to T2 Action 2- Right Reach to C4 Action 3- Left Reach to T12 Action 3- Right Reach to L4 PT-OP-F Manual Assessment Start: 08/13/18 16:28 Freq: Status: Active Protocol: Document 08/13/18 15:15 DCW (Rec: 08/13/18 16:59 DCW [id number]) Manual Assessments Soft Tissue Assessment Soft Tissue Mobility Assessment Severe, visible tone of right upper trap at later base of neck PT-OP-K Range of Motion Start: 08/13/18 16:28 Freq: Status: Active Protocol: Document 08/13/18 15:15 DCW (Rec: 08/13/18 16:59 DCW [id number]) Shoulder Goniometric Range of Motion Shoulder Measured in Degrees Right Active Shoulder ROM WFL No Testing Position Sitting Flexion 108 Abduction 103 External Rotation at 0 degrees Abduction 50 Left Active Shoulder ROM WFL No Testing Position Sitting Flexion 120 Abduction 112 External Rotation at 0 degrees Abduction 72 Shoulder ROM Limitations Shoulder ROM Limitations Soft Tissue Tightness Bony Restriction Muscle Weakness Muscle Tone Pain PT-OP-L Special Tests Start: 08/13/18 16:28 Freq: Status: Active Protocol: Document 08/13/18 15:15 DCW (Rec: 08/13/18 16:59 DCW [id number]) Special Tests Shoulder Special Tests Painful Arc Test Results Positive Passive ER Rotator Cuff Test Results Positive Lift-Off Rotator Cuff Test Results Negative Henderson Ken Impingement Test Results Negative Empty Can Test Results Negative Drop Arm Rotator Cuff Test Results Positive Belly Press Test Results Negative AC Joint Compression Test Results Pain PT-OP-M Strength Start: 08/13/18 16:28 Freq: Status: Active Protocol: Document 08/13/18 15:15 DCW (Rec: 08/13/18 16:59 DCW [id number]) Shoulder Strength Shoulder Manual Muscle Testing Right Flexion 4- Good- Abduction (C5) 3+ Fair+ External Rotation 4- Good- Internal Rotation 5 Normal Left Flexion 4 Good Abduction (C5) 4- Good- External Rotation 5 Normal Internal Rotation 5 Normal PT-OP-Q Treatments Start: 08/13/18 16:28 Freq: Status: Active Protocol: Document 08/20/18 15:15 DCW (Rec: 08/20/18 16:00 DCW [id number]) Cardio Equipment Upper Body Ergometer (UBE) Duration (Minutes) 2 RPM 60 Seat Position 15 Height 3.5 Other Fwd Therapeutic Exercises Sidelying Exercises Shoulder abduction Sidelying Exercise Name shoulder abduction Side right Resistance 0 Reps/Minutes 10 Shoulder External Rotation Sidelying Exercise Name Shoulder ER Side bilateral Equipment Used T-band Sitting Exercises Shoulder Circles Sitting Exercise Name Fwd/Bkwd shoulder circles Side bilateral Upper trap stretch Side right Reps/Minutes 2x30 sec Comments sitting on hand; manual overpressure for increased stretch Standing Exercises Wall Slides Standing Exercise Name Wall Slides Side right Comments Flexion, Abduction Shoulder Adduction Standing Exercise Name Adduction Side bilateral Resistance Lv 1 Equipment Used T-band Shoulder Extension Standing Exercise Name Extension Side bilateral Resistance Lv 1 Equipment Used T-band Manual Therapy Treatment Soft Tissue Mobilization Right upper trap Mobilization Type Rolling Sustained Pressure Trigger Point Release Intensity/Depth Moderate Body Position Sidelying Comments left sidelying PT-OP-R Modalities Start: 08/13/18 16:28 Freq: Status: Active Protocol: Document 08/15/18 09:00 RCC (Rec: 08/15/18 13:54 RCC [email or web address]) Hot Pack/Cold Pack Treatment Cold Pack Location R shoulder Patient Position Sitting Treatment Duration (minutes) 10 Patient Tolerance Good PT-OP-T Assessment and Plan Start: 08/13/18 16:28 Freq: Status: Active Protocol: Document 08/20/18 15:15 DCW (Rec: 08/20/18 16:00 DCW [id number]) Physical Therapy Assessment Impairments Impairments Activity Tolerance Functional Activities Pain ROM Soft Tissue Mobility Strength Goals Five Impairment bilateral decreased shoulder ROM Short Term Goal (STG) Shoulder flexion bilaterally to 135? STG Duration 09/12/18 Attorney Law Clerk Goal (LTG) Shoulder abduction bilaterall to 125? LTG Duration 10/13/18 Four Impairment bilateral shoulder weakness Attorney Law Clerk Goal (LTG) B shoulder MMT equal to or greater than 4/5 LTG Duration 10/13/18 Three Impairment Pain with lifting [facility] Goal (LTG) Pt to sisal picker milk carton and place on counter with no increased pain LTG Duration 10/13/18 Two Impairment Pt has difficulty reaching up to turn off lights Attorney Law Clerk Goal (LTG) Pt to report no increased pain turning off his lights LTG Duration 10/13/18 One Impairment Pt does not have an appropriate home exercise program Short Term Goal (STG) Pt to be independent and complaint with an appropriate HEP STG Duration 09/12/18 Assessment Summary Assessment Pt required a few rest breaks during todays session, but reported he liked these exercises a lot more than those band ones. Pt had no complaints of pain during today's session. Physical Therapy Plan Frequency and Duration Frequency of Treatment 2x/Week Duration of Treatment 2 months Plan of Care Start Date 08/13/18 Plan of Care End Date 10/13/18 Next Visit Focus/Plan Next Note Type Treatment Note Next Visit Plan shoulder girdle strengthening; possible vestibular assessment
--- NOTE | 2018-08-22 15:14 | PT.OTN ---
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, not specified as traumatic (08/22/18) Physical Therapy Treatment Note PT-OP-A Visit Information Start: 08/13/18 16:28 Freq: Status: Active Protocol: Document 08/22/18 14:30 DCW (Rec: 08/22/18 15:14 DCW [id number]) Out-Patient Physical Therapy Visit Information Visit Information Visit Type Treatment Note Visit Start Time 14:30 Visit Stop Time 15:15 Total Visit Minutes 45 Visit Number 4 Number of SUPERVISORY AIDE Visits 0 Evaluation Information Evaluation Date 08/13/18 Precautions Precautions Pacemaker PT-OP-B Current Condition Start: 08/13/18 16:28 Freq: Status: Active Protocol: Document 08/13/18 15:15 DCW (Rec: 08/13/18 16:59 DCW [id number]) Current Condition History of Current Condition Onset Date Multi-year history Current Complaints Right shoulder pain and stiffness History of Current Condition Pt is an 83 year old male presenting to skilled therapy with a multi-year history of right shoulder pain, weakness, and limited ROM. Pt reports he was told years ago that he had a rotator cuff tear, but now it's finally getting to the point where it is hurting, and seems to be getting worse. Pt reports that he will occasionally experience pain from his lateral neck to his right elbow, and his pain is at its worst when lifting his arm up overhead, or raising an item to countertop level. Pt reports his pain does not limit him from doing anything, he just works through the pain, but does admit that he will occasionally need to use his left arm to lift his right . Prior Treatments and Tests Shoulder X-ray: Moderate degenerative joint disease, undersurface osteophytes in the distal clavicle and acromion, which could impinge the rotator cuff tendons per Larry Ndiaye M.D. on 07/01/2018 Treatment Goals Patient/Caregiver Goals Pt would like to decrease his shoulder pain and improve his mobility. Prior Functional Status Baseline Function- ADL's Independent Baseline Function- Mobility Independent Current Functional Impairments (Reported) Functional Limitations- ADL's Increased pain reaching up to turn off lights or lifting objects to countertop level PT-OP-C Subjective Start: 08/13/18 16:28 Freq: Status: Active Protocol: Document 08/22/18 14:30 DCW (Rec: 08/22/18 15:14 DCW [id number]) OP-PT Subjective Patient Comments Patient Comments Pt notes his muscles are a little sore following his therapy session Saturday. PT-OP-E Functional Tests Start: 08/13/18 16:28 Freq: Status: Active Protocol: Document 08/13/18 15:15 DCW (Rec: 08/13/18 16:59 DCW [id number]) Functional Tests Apley's Scratch Test Action 1: The subject is instructed to touch the opposite shoulder with his/her hand. This motion checks Glenohumeral adduction, internal rotation , horizontal adduction and scapular protraction Action 2: The subject is instructed to place his/her arm overhead and reach behind the neck to touch his/her upper back. This motion checks Glenohumeral abduction, external rotation and scapular upward rotation and elevation. Action 3: The subject puts his/her hand on the lower back and reaches upward as far as possible. This motion checks glenohumeral adduction, internal rotation and scapular retraction with downward rotation Action 1- Left Reach to lateral opposite shoulder Action 1- Right Reach to anterior opposite shoulder Action 2- Left Reach to T2 Action 2- Right Reach to C4 Action 3- Left Reach to T12 Action 3- Right Reach to L4 PT-OP-F Manual Assessment Start: 08/13/18 16:28 Freq: Status: Active Protocol: Document 08/13/18 15:15 DCW (Rec: 08/13/18 16:59 DCW [id number]) Manual Assessments Soft Tissue Assessment Soft Tissue Mobility Assessment Severe, visible tone of right upper trap at later base of neck PT-OP-K Range of Motion Start: 08/13/18 16:28 Freq: Status: Active Protocol: Document 08/13/18 15:15 DCW (Rec: 08/13/18 16:59 DCW [id number]) Shoulder Goniometric Range of Motion Shoulder Measured in Degrees Right Active Shoulder ROM WFL No Testing Position Sitting Flexion 108 Abduction 103 External Rotation at 0 degrees Abduction 50 Left Active Shoulder ROM WFL No Testing Position Sitting Flexion 120 Abduction 112 External Rotation at 0 degrees Abduction 72 Shoulder ROM Limitations Shoulder ROM Limitations Soft Tissue Tightness Bony Restriction Muscle Weakness Muscle Tone Pain PT-OP-L Special Tests Start: 08/13/18 16:28 Freq: Status: Active Protocol: Document 08/13/18 15:15 DCW (Rec: 08/13/18 16:59 DCW [id number]) Special Tests Shoulder Special Tests Painful Arc Test Results Positive Passive ER Rotator Cuff Test Results Positive Lift-Off Rotator Cuff Test Results Negative Henderson Ken Impingement Test Results Negative Empty Can Test Results Negative Drop Arm Rotator Cuff Test Results Positive Belly Press Test Results Negative AC Joint Compression Test Results Pain PT-OP-M Strength Start: 08/13/18 16:28 Freq: Status: Active Protocol: Document 08/13/18 15:15 DCW (Rec: 08/13/18 16:59 DCW [id number]) Shoulder Strength Shoulder Manual Muscle Testing Right Flexion 4- Good- Abduction (C5) 3+ Fair+ External Rotation 4- Good- Internal Rotation 5 Normal Left Flexion 4 Good Abduction (C5) 4- Good- External Rotation 5 Normal Internal Rotation 5 Normal PT-OP-Q Treatments Start: 08/13/18 16:28 Freq: Status: Active Protocol: Document 08/22/18 14:30 DCW (Rec: 08/22/18 15:14 DCW [id number]) Cardio Equipment Upper Body Ergometer (UBE) Duration (Minutes) 3 RPM 60 Seat Position 15 Height 3.5 Other Fwd/Bkwd Therapeutic Exercises Sitting Exercises Biceps Curls Sitting Exercise Name Curls Side bilateral Resistance 5# Shoulder Press Sitting Exercise Name Shoulder Press /c wand Resistance 2# Pulleys Sitting Exercise Name GH Flexion Side bilateral Equipment Used Pulleys Standing Exercises Pulleys Standing Exercise Name GH Internal Rotation Side right Equipment Used Pulleys Wall Slides Standing Exercise Name Wall Slides Side right Comments Flexion, Abduction Shoulder Adduction Standing Exercise Name Adduction Side bilateral Resistance Lv 3 Equipment Used T-band Shoulder Extension Standing Exercise Name Extension Side bilateral Resistance Lv 3 Equipment Used T-band Shoulder Internal Rotation Standing Exercise Name Shoulder IR Resistance Lv 3 Equipment Used T-band Other Exercises Resisted UE Lateral Walk Other Exercise Name Lateral UE Walk along rail Side bilateral Resistance Yellow Equipment Used T-band Manual Therapy Treatment Soft Tissue Mobilization Right Pec Mobilization Type Sustained Pressure Trigger Point Release Body Position Sitting Right upper trap Mobilization Type Rolling Sustained Pressure Trigger Point Release Intensity/Depth Moderate Body Position Sitting Joint Mobilizations GH joint Joint Right GH Direction inferior glide Grade III Body Position Sitting PT-OP-R Modalities Start: 08/13/18 16:28 Freq: Status: Active Protocol: Document 08/15/18 09:00 RCC (Rec: 08/15/18 13:54 RCC [id number]) Hot Pack/Cold Pack Treatment Cold Pack Location R shoulder Patient Position Sitting Treatment Duration (minutes) 10 Patient Tolerance Good PT-OP-T Assessment and Plan Start: 08/13/18 16:28 Freq: Status: Active Protocol: Document 08/22/18 14:30 DCW (Rec: 08/22/18 15:14 DCW [id number]) Physical Therapy Assessment Impairments Impairments Activity Tolerance Functional Activities Pain ROM Soft Tissue Mobility Strength Goals Five Impairment bilateral decreased shoulder ROM Short Term Goal (STG) Shoulder flexion bilaterally to 135? STG Duration 09/12/18 Toxicology Teacher Goal (LTG) Shoulder abduction bilaterall to 125? 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 Physical Therapy Plan Frequency and Duration Frequency of Treatment 2x/Week Duration of Treatment 2 months Plan of Care Start Date 08/13/18 Plan of Care End Date 10/13/18 Therapeutic Interventions Therapeutic Interventions Home Exercise Program Joint Mobilizations Manual Therapy Patient/Caregiver Education Self-Care/Home Management Soft Tissue Mobilization Therapeutic Activities Therapeutic Exercises Modalities Cold Pack/Ice Massage Hot Packs Next Visit Focus/Plan Next Note Type Treatment Note Next Visit Plan Shoulder girdle strengthening, stretching, manual therapy to decrease UT tone.
--- NOTE | 2018-08-28 15:17 | PT.OTN ---
Current Diagnoses Primary osteoarthritis, right shoulder (08/28/18) Complete rotator cuff tear or rupture of right shoulder, not specified as traumatic (08/28/18) Physical Therapy Treatment Note PT-OP-A Visit Information Start: 08/13/18 16:28 Freq: Status: Active Protocol: Document 08/28/18 14:30 DCW (Rec: 08/28/18 15:17 DCW [id number]) Out-Patient Physical Therapy Visit Information Visit Information Visit Type Treatment Note Visit Start Time 14:30 Visit Stop Time 15:15 Total Visit Minutes 45 Visit Number 4 Number of BAKER HEAD Visits 0 Evaluation Information Evaluation Date 08/13/18 Precautions Precautions Pacemaker PT-OP-B Current Condition Start: 08/13/18 16:28 Freq: Status: Active Protocol: Document 08/13/18 15:15 DCW (Rec: 08/13/18 16:59 DCW [id number]) Current Condition History of Current Condition Onset Date Multi-year history Current Complaints Right shoulder pain and stiffness History of Current Condition Pt is an 83 year old male presenting to skilled therapy with a multi-year history of right shoulder pain, weakness, and limited ROM. Pt reports he was told years ago that he had a rotator cuff tear, but now it's finally getting to the point where it is hurting, and seems to be getting worse. Pt reports that he will occasionally experience pain from his lateral neck to his right elbow, and his pain is at its worst when lifting his arm up overhead, or raising an item to countertop level. Pt reports his pain does not limit him from doing anything, he just works through the pain, but does admit that he will occasionally need to use his left arm to lift his right . Prior Treatments and Tests Shoulder X-ray: Moderate degenerative joint disease, undersurface osteophytes in the distal clavicle and acromion, which could impinge the rotator cuff tendons per Larry Ndiaye M.D. on 07/01/2018 Treatment Goals Patient/Caregiver Goals Pt would like to decrease his shoulder pain and improve his mobility. Prior Functional Status Baseline Function- ADL's Independent Baseline Function- Mobility Independent Current Functional Impairments (Reported) Functional Limitations- ADL's Increased pain reaching up to turn off lights or lifting objects to countertop level PT-OP-C Subjective Start: 08/13/18 16:28 Freq: Status: Active Protocol: Document 08/28/18 14:30 DCW (Rec: 08/28/18 15:17 DCW [id number]) OP-PT Subjective Patient Comments Patient Comments Pt reports that earlier this week, he was in so much pain he went to see Dr Breaux, who gave him a cortisone injection and noted that he would like him to return in ~4 weeks, and if he had not improve, would be recommending an MRI. PT-OP-E Functional Tests Start: 08/13/18 16:28 Freq: Status: Active Protocol: Document 08/13/18 15:15 DCW (Rec: 08/13/18 16:59 DCW [id number]) Functional Tests Apley's Scratch Test Action 1: The subject is instructed to touch the opposite shoulder with his/her hand. This motion checks Glenohumeral adduction, internal rotation , horizontal adduction and scapular protraction Action 2: The subject is instructed to place his/her arm overhead and reach behind the neck to touch his/her upper back. This motion checks Glenohumeral abduction, external rotation and scapular upward rotation and elevation. Action 3: The subject puts his/her hand on the lower back and reaches upward as far as possible. This motion checks glenohumeral adduction, internal rotation and scapular retraction with downward rotation Action 1- Left Reach to lateral opposite shoulder Action 1- Right Reach to anterior opposite shoulder Action 2- Left Reach to T2 Action 2- Right Reach to C4 Action 3- Left Reach to T12 Action 3- Right Reach to L4 PT-OP-F Manual Assessment Start: 08/13/18 16:28 Freq: Status: Active Protocol: Document 08/13/18 15:15 DCW (Rec: 08/13/18 16:59 DCW [id number]) Manual Assessments Soft Tissue Assessment Soft Tissue Mobility Assessment Severe, visible tone of right upper trap at later base of neck PT-OP-K Range of Motion Start: 08/13/18 16:28 Freq: Status: Active Protocol: Document 08/13/18 15:15 DCW (Rec: 08/13/18 16:59 DCW [id number]) Shoulder Goniometric Range of Motion Shoulder Measured in Degrees Right Active Shoulder ROM WFL No Testing Position Sitting Flexion 108 Abduction 103 External Rotation at 0 degrees Abduction 50 Left Active Shoulder ROM WFL No Testing Position Sitting Flexion 120 Abduction 112 External Rotation at 0 degrees Abduction 72 Shoulder ROM Limitations Shoulder ROM Limitations Soft Tissue Tightness Bony Restriction Muscle Weakness Muscle Tone Pain PT-OP-L Special Tests Start: 08/13/18 16:28 Freq: Status: Active Protocol: Document 08/13/18 15:15 DCW (Rec: 08/13/18 16:59 DCW [id number]) Special Tests Shoulder Special Tests Painful Arc Test Results Positive Passive ER Rotator Cuff Test Results Positive Lift-Off Rotator Cuff Test Results Negative Henderson Ken Impingement Test Results Negative Empty Can Test Results Negative Drop Arm Rotator Cuff Test Results Positive Belly Press Test Results Negative AC Joint Compression Test Results Pain PT-OP-M Strength Start: 08/13/18 16:28 Freq: Status: Active Protocol: Document 08/13/18 15:15 DCW (Rec: 08/13/18 16:59 DCW [id number]) Shoulder Strength Shoulder Manual Muscle Testing Right Flexion 4- Good- Abduction (C5) 3+ Fair+ External Rotation 4- Good- Internal Rotation 5 Normal Left Flexion 4 Good Abduction (C5) 4- Good- External Rotation 5 Normal Internal Rotation 5 Normal PT-OP-Q Treatments Start: 08/13/18 16:28 Freq: Status: Active Protocol: Document 08/28/18 14:30 DCW (Rec: 08/28/18 15:17 DCW [id number]) Cardio Equipment Upper Body Ergometer (UBE) Duration (Minutes) 6 RPM 60 Seat Position 15 Height 3.5 Other Fwd/Bkwd Therapeutic Exercises Sitting Exercises Biceps Curls Sitting Exercise Name Curls Side bilateral Resistance 5# Shoulder Press Sitting Exercise Name Shoulder Press /c wand Resistance 2# Comments Stopped secondary to pain Pulleys Sitting Exercise Name GH Flexion, Abduction Side bilateral Equipment Used Pulleys Shoulder Circles Sitting Exercise Name Fwd/Bkwd shoulder circles Side bilateral Standing Exercises Pulleys Standing Exercise Name GH Internal Rotation Side right Equipment Used Pulleys Wall Slides Standing Exercise Name Wall Slides Side right Comments Flexion, Abduction Manual Therapy Treatment Soft Tissue Mobilization Right Pec Mobilization Type Sustained Pressure Trigger Point Release Body Position Sitting Right upper trap Mobilization Type Rolling Sustained Pressure Trigger Point Release Intensity/Depth Moderate Body Position Sitting Joint Mobilizations GH joint Joint Right GH Direction inferior glide Grade III Body Position Sitting PT-OP-R Modalities Start: 08/13/18 16:28 Freq: Status: Active Protocol: Document 08/15/18 09:00 RCC (Rec: 08/15/18 13:54 RCC [id number]) Hot Pack/Cold Pack Treatment Cold Pack Location R shoulder Patient Position Sitting Treatment Duration (minutes) 10 Patient Tolerance Good PT-OP-T Assessment and Plan Start: 08/13/18 16:28 Freq: Status: Active Protocol: Document 08/28/18 14:30 DCW (Rec: 08/28/18 15:17 DCW [id number]) Physical Therapy Assessment Impairments Impairments Activity Tolerance Functional Activities Pain ROM Soft Tissue Mobility Strength Goals Five Impairment bilateral decreased shoulder ROM Short Term Goal (STG) Shoulder flexion bilaterally to 135? STG Duration 09/12/18 Usp Goal (LTG) Shoulder abduction bilaterall to 125? 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 place on counter with no increased pain LTG Duration 10/13/18 Two Impairment Pt has difficulty reaching up to turn off lights Corrugator Operator Helper Goal (LTG) Pt to report no increased pain turning off his lights LTG Duration 10/13/18 One Impairment Pt does not have an appropriate home exercise program Short Term Goal (STG) Pt to be independent and complaint with an appropriate HEP STG Duration 09/12/18 Assessment Summary Assessment Pt able to tolerate UBE better today and showed improved activity tolerance following his Cortisone injection Saturday, notes his pain has only been able half as much as it was right after the shot. Physical Therapy Plan Frequency and Duration Frequency of Treatment 2x/Week Duration of Treatment 2 months Plan of Care Start Date 08/13/18 Plan of Care End Date 10/13/18 Therapeutic Interventions Therapeutic Interventions Home Exercise Program Joint Mobilizations Manual Therapy Patient/Caregiver Education Self-Care/Home Management Soft Tissue Mobilization Therapeutic Activities Therapeutic Exercises Modalities Cold Pack/Ice Massage Hot Packs Next Visit Focus/Plan Next Note Type Treatment Note Next Visit Plan Shoulder girdle strengthening, stretching, manual therapy to decrease UT tone.
--- NOTE | 2018-09-01 14:31 | PT.OTN ---
Current Diagnoses Primary osteoarthritis, right shoulder (09/01/18) Complete rotator cuff tear or rupture of right shoulder, not specified as traumatic (09/01/18) Physical Therapy Treatment Note PT-OP-A Visit Information Start: 08/13/18 16:28 Freq: Status: Active Protocol: Document 09/01/18 13:45 DCW (Rec: 09/01/18 14:27 DCW [id number]) Out-Patient Physical Therapy Visit Information Visit Information Visit Type Treatment Note Visit Start Time 14:30 Visit Stop Time 15:15 Total Visit Minutes 45 Visit Number 5 Number of PRIMARY THERAPIST Visits 0 Evaluation Information Evaluation Date 08/13/18 Precautions Precautions Pacemaker PT-OP-B Current Condition Start: 08/13/18 16:28 Freq: Status: Active Protocol: Document 08/13/18 15:15 DCW (Rec: 08/13/18 16:59 DCW [id number]) Current Condition History of Current Condition Onset Date Multi-year history Current Complaints Right shoulder pain and stiffness History of Current Condition Pt is an 83 year old male presenting to skilled therapy with a multi-year history of right shoulder pain, weakness, and limited ROM. Pt reports he was told years ago that he had a rotator cuff tear, but now it's finally getting to the point where it is hurting, and seems to be getting worse. Pt reports that he will occasionally experience pain from his lateral neck to his right elbow, and his pain is at its worst when lifting his arm up overhead, or raising an item to countertop level. Pt reports his pain does not limit him from doing anything, he just works through the pain, but does admit that he will occasionally need to use his left arm to lift his right . Prior Treatments and Tests Shoulder X-ray: Moderate degenerative joint disease, undersurface osteophytes in the distal clavicle and acromion, which could impinge the rotator cuff tendons per Larry Ndiaye M.D. on 07/01/2018 Treatment Goals Patient/Caregiver Goals Pt would like to decrease his shoulder pain and improve his mobility. Prior Functional Status Baseline Function- ADL's Independent Baseline Function- Mobility Independent Current Functional Impairments (Reported) Functional Limitations- ADL's Increased pain reaching up to turn off lights or lifting objects to countertop level PT-OP-C Subjective Start: 08/13/18 16:28 Freq: Status: Active Protocol: Document 09/01/18 13:45 DCW (Rec: 09/01/18 14:27 DCW [id number]) OP-PT Subjective Patient Comments Patient Comments Pt reports that his shoulder is not any better, and that he has been having trouble sleeping due to the pain. Notes his radicular pain is all the was down to the elbow now. PT-OP-E Functional Tests Start: 08/13/18 16:28 Freq: Status: Active Protocol: Document 08/13/18 15:15 DCW (Rec: 08/13/18 16:59 DCW [id number]) Functional Tests Apley's Scratch Test Action 1: The subject is instructed to touch the opposite shoulder with his/her hand. This motion checks Glenohumeral adduction, internal rotation , horizontal adduction and scapular protraction Action 2: The subject is instructed to place his/her arm overhead and reach behind the neck to touch his/her upper back. This motion checks Glenohumeral abduction, external rotation and scapular upward rotation and elevation. Action 3: The subject puts his/her hand on the lower back and reaches upward as far as possible. This motion checks glenohumeral adduction, internal rotation and scapular retraction with downward rotation Action 1- Left Reach to lateral opposite shoulder Action 1- Right Reach to anterior opposite shoulder Action 2- Left Reach to T2 Action 2- Right Reach to C4 Action 3- Left Reach to T12 Action 3- Right Reach to L4 PT-OP-F Manual Assessment Start: 08/13/18 16:28 Freq: Status: Active Protocol: Document 08/13/18 15:15 DCW (Rec: 08/13/18 16:59 DCW [id number]) Manual Assessments Soft Tissue Assessment Soft Tissue Mobility Assessment Severe, visible tone of right upper trap at later base of neck PT-OP-K Range of Motion Start: 08/13/18 16:28 Freq: Status: Active Protocol: Document 08/13/18 15:15 DCW (Rec: 08/13/18 16:59 DCW [id number]) Shoulder Goniometric Range of Motion Shoulder Measured in Degrees Right Active Shoulder ROM WFL No Testing Position Sitting Flexion 108 Abduction 103 External Rotation at 0 degrees Abduction 50 Left Active Shoulder ROM WFL No Testing Position Sitting Flexion 120 Abduction 112 External Rotation at 0 degrees Abduction 72 Shoulder ROM Limitations Shoulder ROM Limitations Soft Tissue Tightness Bony Restriction Muscle Weakness Muscle Tone Pain PT-OP-L Special Tests Start: 08/13/18 16:28 Freq: Status: Active Protocol: Document 08/13/18 15:15 DCW (Rec: 08/13/18 16:59 DCW [id number]) Special Tests Shoulder Special Tests Painful Arc Test Results Positive Passive ER Rotator Cuff Test Results Positive Lift-Off Rotator Cuff Test Results Negative Henderson Ken Impingement Test Results Negative Empty Can Test Results Negative Drop Arm Rotator Cuff Test Results Positive Belly Press Test Results Negative AC Joint Compression Test Results Pain PT-OP-M Strength Start: 08/13/18 16:28 Freq: Status: Active Protocol: Document 08/13/18 15:15 DCW (Rec: 08/13/18 16:59 DCW [id number]) Shoulder Strength Shoulder Manual Muscle Testing Right Flexion 4- Good- Abduction (C5) 3+ Fair+ External Rotation 4- Good- Internal Rotation 5 Normal Left Flexion 4 Good Abduction (C5) 4- Good- External Rotation 5 Normal Internal Rotation 5 Normal PT-OP-Q Treatments Start: 08/13/18 16:28 Freq: Status: Active Protocol: Document 09/01/18 13:45 DCW (Rec: 09/01/18 14:27 DCW [id number]) Cardio Equipment Upper Body Ergometer (UBE) Duration (Minutes) 5 RPM 60 Seat Position 13 Height 4.5 Other Fwd/Bkwd Therapeutic Exercises Sitting Exercises Internal Rotation Sitting Exercise Name Shoulder IR Side right Resistance Lv 1 Equipment Used T-band Biceps Curls Sitting Exercise Name Curls Side bilateral Resistance 7# Shoulder Press Sitting Exercise Name Shoulder Press /c wand Resistance 2# Pulleys Sitting Exercise Name GH Flexion, Abduction Side bilateral Equipment Used Pulleys Shoulder ER Side bilateral Resistance Lv 1 Equipment Used T-band Standing Exercises Shoulder Abduction Standing Exercise Name Abduction Resistance 3# Pulleys Standing Exercise Name GH Internal Rotation Side right Equipment Used Pulleys Shoulder Flexion Standing Exercise Name Flexion Resistance 3# Manual Therapy Treatment Soft Tissue Mobilization Right Pec Mobilization Type Sustained Pressure Trigger Point Release Body Position Sitting Right upper trap Mobilization Type Rolling Sustained Pressure Trigger Point Release Intensity/Depth Moderate Body Position Sitting Joint Mobilizations GH joint Joint Right GH Direction inferior glide Grade III Body Position Sitting PT-OP-R Modalities Start: 08/13/18 16:28 Freq: Status: Active Protocol: Document 08/15/18 09:00 RCC (Rec: 08/15/18 13:54 RCC [id number]) Hot Pack/Cold Pack Treatment Cold Pack Location R shoulder Patient Position Sitting Treatment Duration (minutes) 10 Patient Tolerance Good PT-OP-T Assessment and Plan Start: 08/13/18 16:28 Freq: Status: Active Protocol: Document 09/01/18 13:45 DCW (Rec: 09/01/18 14:27 DCW [id number]) Physical Therapy Assessment Impairments Impairments Activity Tolerance Functional Activities Pain ROM Soft Tissue Mobility Strength Goals Five Impairment bilateral decreased shoulder ROM Short Term Goal (STG) Shoulder flexion bilaterally to 135? STG Duration 09/12/18 Mcfp Goal (LTG) Shoulder abduction bilaterall to 125? 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 Physical Therapy Plan Frequency and Duration Frequency of Treatment 2x/Week Duration of Treatment 2 months Plan of Care Start Date 08/13/18 Plan of Care End Date 10/13/18 Therapeutic Interventions Therapeutic Interventions Home Exercise Program Joint Mobilizations Manual Therapy Patient/Caregiver Education Self-Care/Home Management Soft Tissue Mobilization Therapeutic Activities Therapeutic Exercises Modalities Cold Pack/Ice Massage Hot Packs Hold Physical Therapy Reason For Hold Pt would like to return to his physician and discuss continued therapy before scheduling any more appointments. Next Visit Focus/Plan Next Note Type Treatment Note Next Visit Plan Shoulder girdle strengthening, stretching, manual therapy to decrease UT tone.
--- NOTE | 2018-10-29 14:58 | PT.OPDS ---
Current Diagnoses Primary osteoarthritis, right shoulder (09/01/18) Complete rotator cuff tear or rupture of right shoulder, not specified as traumatic (09/01/18) Provider Visit Care Team Role Provider Type Yoly Pereira MD Family Provider Physician Primary Care Provider Specialty: Family Practice Address: [address] [place] [address], [id number] Email: Javy Breaux MD Attending Provider Physician Specialty: Orthopedic Surgery Address: [address] [place] [address], [id number] Email: [email or web address] Visit Number Visit Number 5 Discharge Summary PT-OP-B Current Condition Start: 08/13/18 16:28 Freq: Status: Active Protocol: Document 08/13/18 15:15 DCW (Rec: 08/13/18 16:59 DCW [id number]) Current Condition History of Current Condition Onset Date Multi-year history Current Complaints Right shoulder pain and stiffness History of Current Condition Pt is an 83 year old male presenting to skilled therapy with a multi-year history of right shoulder pain, weakness, and limited ROM. Pt reports he was told years ago that he had a rotator cuff tear, but now it's finally getting to the point where it is hurting, and seems to be getting worse. Pt reports that he will occasionally experience pain from his lateral neck to his right elbow, and his pain is at its worst when lifting his arm up overhead, or raising an item to countertop level. Pt reports his pain does not limit him from doing anything, he just works through the pain, but does admit that he will occasionally need to use his left arm to lift his right . Prior Treatments and Tests Shoulder X-ray: Moderate degenerative joint disease, undersurface osteophytes in the distal clavicle and acromion, which could impinge the rotator cuff tendons per Larry Ndiaye M.D. on 07/01/2018 Treatment Goals Patient/Caregiver Goals Pt would like to decrease his shoulder pain and improve his mobility. Prior Functional Status Baseline Function- ADL's Independent Baseline Function- Mobility Independent Current Functional Impairments (Reported) Functional Limitations- ADL's Increased pain reaching up to turn off lights or lifting objects to countertop level PT-OP-C Subjective Start: 08/13/18 16:28 Freq: Status: Active Protocol: Document 09/01/18 13:45 DCW (Rec: 09/01/18 14:27 DCW [id number]) OP-PT Subjective Patient Comments Patient Comments Pt reports that his shoulder is not any better, and that he has been having trouble sleeping due to the pain. Notes his radicular pain is all the was down to the elbow now. PT-OP-E Functional Tests Start: 08/13/18 16:28 Freq: Status: Active Protocol: Document 08/13/18 15:15 DCW (Rec: 08/13/18 16:59 DCW [id number]) Functional Tests Apley's Scratch Test Action 1- Left Reach to lateral opposite shoulder Action 1- Right Reach to anterior opposite shoulder Action 2- Left Reach to T2 Action 2- Right Reach to C4 Action 3- Left Reach to T12 Action 3- Right Reach to L4 PT-OP-F Manual Assessment Start: 08/13/18 16:28 Freq: Status: Active Protocol: Document 08/13/18 15:15 DCW (Rec: 08/13/18 16:59 DCW [id number]) Manual Assessments Soft Tissue Assessment Soft Tissue Mobility Assessment Severe, visible tone of right upper trap at later base of neck PT-OP-K Range of Motion Start: 08/13/18 16:28 Freq: Status: Active Protocol: Document 08/13/18 15:15 DCW (Rec: 08/13/18 16:59 DCW [id number]) Shoulder Goniometric Range of Motion Shoulder Right Active Shoulder ROM WFL No Testing Position Sitting Flexion 108 Abduction 103 External Rotation at 0 degrees Abduction 50 Left Active Shoulder ROM WFL No Testing Position Sitting Flexion 120 Abduction 112 External Rotation at 0 degrees Abduction 72 Shoulder ROM Limitations Shoulder ROM Limitations Soft Tissue Tightness Bony Restriction Muscle Weakness Muscle Tone Pain PT-OP-L Special Tests Start: 08/13/18 16:28 Freq: Status: Active Protocol: Document 08/13/18 15:15 DCW (Rec: 08/13/18 16:59 DCW [id number]) Special Tests Shoulder Special Tests Painful Arc Test Results Positive Passive ER Rotator Cuff Test Results Positive Lift-Off Rotator Cuff Test Results Negative Henderson Ken Impingement Test Results Negative Empty Can Test Results Negative Drop Arm Rotator Cuff Test Results Positive Belly Press Test Results Negative AC Joint Compression Test Results Pain PT-OP-M Strength Start: 08/13/18 16:28 Freq: Status: Active Protocol: Document 08/13/18 15:15 DCW (Rec: 08/13/18 16:59 DCW [id number]) Shoulder Strength Shoulder Manual Muscle Testing Right Flexion 4- Good- Abduction (C5) 3+ Fair+ External Rotation 4- Good- Internal Rotation 5 Normal Left Flexion 4 Good Abduction (C5) 4- Good- External Rotation 5 Normal Internal Rotation 5 Normal PT-OP-T Assessment and Plan Start: 08/13/18 16:28 Freq: Status: Active Protocol: Document 10/29/18 14:51 DCW (Rec: 10/29/18 14:58 DCW [id number]) Physical Therapy Assessment Goals Five Impairment bilateral decreased shoulder ROM Short Term Goal (STG) Shoulder flexion bilaterally to 135? STG Duration 09/12/18 Table Lever Operator Goal (LTG) Shoulder abduction bilaterall to 125? 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 Pt has now not been seen in two months, and will be discharged from skilled therapy at this time. Physical Therapy Plan Frequency and Duration Frequency of Treatment 2x/Week Duration of Treatment 2 months Plan of Care Start Date 08/13/18 Plan of Care End Date 10/13/18 Therapeutic Interventions Therapeutic Interventions Home Exercise Program Joint Mobilizations Manual Therapy Patient/Caregiver Education Self-Care/Home Management Soft Tissue Mobilization Therapeutic Activities Therapeutic Exercises Modalities Cold Pack/Ice Massage Hot Packs Discharge Physical Therapy Discharge Reasons No Longer Attending PT Next Visit Focus/Plan Next Note Type Discharge Summary
== END 2018-10-29 16:44 ==
LOC: PHYS 13:45
PROVIDERS: Family Provider Family Medicine; PCP Family Medicine; Visit Provider Orthopaedic Surgery
DX: M19.011 Primary osteoarthritis, right shoulder (principal); M75.121 Complete rotator cuff tear or rupture of right shoulder, not specified as traumatic
CPT/HCPCS: 97110; 97140; 97162

== ENCOUNTER → 2020-11-03 11:37 | Outpatient (CLI) | payer MEDICARE, OTHER, SELFPAY ==
[2020-11-03 12:20] LABS: BUN Creatinine Ratio 20.9 (6-22); Blood Urea Nitrogen 18 mg/dL (9-20); Calcium 9.6 mg/dL (8.4-10.2); Carbon Dioxide 33 mmol/L (22-32); Chloride 103 mmol/L (98-107); Estimated Glomerular Filt Rate > 60.0 mL/min (>60); Glucose 153 mg/dL (80-110); HEMOLYSIS < 15 (0-50); Potassium 4.1 mmol/L (3.4-5.1); Sodium 141 mmol/L (137-145)
== END ==
PROVIDERS: Family Provider Family Medicine; PCP Family Medicine; Referring Provider Internal Medicine Cardiovascular Disease; Visit Provider Internal Medicine Cardiovascular Disease
DX: R60.0 Localized edema (principal)
CPT/HCPCS: 36415; 80048

== ENCOUNTER → 2020-12-06 09:21 | Outpatient (CLI) | payer MEDICARE, OTHER, SELFPAY ==
[2020-12-06 10:34] LABS: Hemoglobin A1C% w Est Avg Glu 6.7 % (4.0-6.0)
[2020-12-06 10:41] LABS: Alanine Aminotransferase 29 IU/L (<50); Albumin 4.2 g/dL (3.5-5.0); Albumin Globulin Ratio 1.3 (1.0-2.8); Alkaline Phosphatase 50 U/L (38-126); Aspartate Aminotransferase 37 IU/L (17-59); Blood Urea Nitrogen 21 mg/dL (9-20); Calcium 9.6 mg/dL (8.4-10.2); Carbon Dioxide 28 mmol/L (22-32); Chloride 103 mmol/L (98-107); Cholesterol 150 mg/dL (140-199); Estimated Glomerular Filt Rate > 60.0 mL/min (>60); Globulin 3.3 g/dL (1.7-4.1); Glucose 156 mg/dL (80-110); HDL Cholesterol 33 mg/dL (40-60); HEMOLYSIS < 15 (0-50); LDL Cholesterol Calculated 57 mg/dL (<100); Potassium 4.1 mmol/L (3.4-5.1); Sodium 140 mmol/L (137-145); Total Protein 7.5 g/dL (6.3-8.2); Triglycerides 302 mg/dL (35-150)
[2020-12-06 11:16] LABS: Thyroid Stimulating Hormone 2.71 uIU/mL (0.47-4.68)
== END ==
PROVIDERS: Family Provider Family Medicine; PCP Family Medicine; Referring Provider Family Medicine; Visit Provider Family Medicine
DX: E03.9 Hypothyroidism, unspecified (principal); E11.9 Type 2 diabetes mellitus without complications; I10 Essential (primary) hypertension; E78.5 Hyperlipidemia, unspecified
CPT/HCPCS: 36415; 80053; 80061; 83036; 84443

== ENCOUNTER → 2021-05-15 10:24 | Outpatient (CLI) | payer MEDICARE, OTHER, SELFPAY ==
[2021-05-15 11:55] LABS: Add Manual Diff / Slide Review NO; Basophils Absolute Auto 0 /uL (0-100); Basophils Percent Auto 0.5 % (0-2); Eosinophils Absolute Auto 100 /uL (0-450); Eosinophils Percent Auto 1.8 % (2-4); Hematocrit 44.4 % (41-53); Hemoglobin 14.9 g/dL (13.5-17.5); Lymphocytes Absolute Auto 2000 /uL (1100-4500); Lymphocytes Percent Auto 30.5 % (25-40); Mean Corpuscular HGB Conc 33.5 % (30-36); Mean Corpuscular Hemoglobin 30.5 PG (26-34); Monocytes Absolute Auto 500 /uL (0-900); Monocytes Percent Auto 7.6 % (3-14); Neutrophils Absolute Auto 3900 /uL (1500-7000); Neutrophils Percent Auto 59.6 % (50-75); Platelet Count 265 X10^3/uL (150-400); Red Blood Cell Count 4.88 X10^6/uL (4.5-5.9); Red Cell Distribution Width 15.5 % (11.6-14.8); White Blood Cell Count 6.6 X10^3/uL (4.5-11.0)
[2021-05-15 12:49] LABS: Alanine Aminotransferase 35 IU/L (<50); Albumin 4.4 g/dL (3.5-5.0); Albumin Globulin Ratio 1.4 (1.0-2.8); Alkaline Phosphatase 55 U/L (38-126); Aspartate Aminotransferase 44 IU/L (17-59); BUN Creatinine Ratio 17.8 (6-22); Bilirubin Total 0.9 mg/dL (0.2-1.3); Blood Urea Nitrogen 21 mg/dL (9-20); Calcium 10.4 mg/dL (8.4-10.2); Carbon Dioxide 32 mmol/L (22-32); Chloride 99 mmol/L (98-107); Cholesterol 177 mg/dL (140-199); Globulin 3.1 g/dL (1.7-4.1); Glucose 163 mg/dL (80-110); HDL Cholesterol 36 mg/dL (40-60); HEMOLYSIS < 15 (0-50); LDL Cholesterol Calculated 85 mg/dL (<100); Potassium 3.9 mmol/L (3.4-5.1); Sodium 139 mmol/L (137-145); Total Protein 7.5 g/dL (6.3-8.2); Triglycerides 280 mg/dL (35-150)
[2021-05-15 12:59] LABS: LDL Cholesterol Direct 106 mg/dL (<100)
[2021-05-15 13:03] LABS: Hemoglobin A1C% w Est Avg Glu 7.2 % (4.0-6.0)
[2021-05-15 13:06] LABS: Thyroid Stimulating Hormone 2.05 uIU/mL (0.47-4.68)
[2021-05-15 17:05] LABS: Creatinine Urine Random 194.3 mg/dL
[2021-05-15 17:08] LABS: Microalbumi Creatinin Ratio Ur 15.4 ug/mg CR (<30)
== END ==
PROVIDERS: Family Provider Family Medicine; PCP Family Medicine; Referring Provider Family Medicine; Visit Provider Family Medicine
DX: E11.9 Type 2 diabetes mellitus without complications (principal); E87.6 Hypokalemia; E78.2 Mixed hyperlipidemia; I10 Essential (primary) hypertension; E03.9 Hypothyroidism, unspecified
CPT/HCPCS: 36415; 80053; 80061; 82043; 82570; 83036; 83721; 84443; 85025

== ENCOUNTER → 2021-08-15 08:52 | Outpatient (CLI) | payer MEDICARE, OTHER, SELFPAY ==
[2021-08-15 11:14] LABS: Hemoglobin A1C% w Est Avg Glu 6.8 % (4.0-6.0)
[2021-08-15 12:07] LABS: Alanine Aminotransferase 35 IU/L (<50); Albumin 4.2 g/dL (3.5-5.0); Albumin Globulin Ratio 1.4 (1.0-2.8); Alkaline Phosphatase 48 U/L (38-126); Aspartate Aminotransferase 44 IU/L (17-59); BUN Creatinine Ratio 20.9 (6-22); Bilirubin Total 0.8 mg/dL (0.2-1.3); Blood Urea Nitrogen 23 mg/dL (9-20); Calcium 9.2 mg/dL (8.4-10.2); Carbon Dioxide 30 mmol/L (22-32); Chloride 102 mmol/L (98-107); Cholesterol 199 mg/dL (140-199); Estimated Glomerular Filt Rate > 60.0 mL/min (>60); Globulin 3.1 g/dL (1.7-4.1); Glucose 115 mg/dL (80-110); HDL Cholesterol 40 mg/dL (40-60); HEMOLYSIS < 15 (0-50); LDL Cholesterol Calculated 85 mg/dL (<100); Potassium 4.4 mmol/L (3.4-5.1); Sodium 140 mmol/L (137-145); Total Protein 7.3 g/dL (6.3-8.2); Triglycerides 368 mg/dL (35-150)
== END ==
PROVIDERS: Family Provider Family Medicine; PCP Family Medicine; Referring Provider Family Medicine; Visit Provider Family Medicine
DX: E11.9 Type 2 diabetes mellitus without complications (principal); E78.5 Hyperlipidemia, unspecified; E03.9 Hypothyroidism, unspecified
CPT/HCPCS: 36415; 80053; 80061; 83036; 84443

== ENCOUNTER → 2021-11-27 09:50 | Outpatient (CLI) | payer MEDICARE, OTHER, SELFPAY ==
[2021-11-27 11:03] LABS: Alanine Aminotransferase 41 IU/L (<50); Albumin 4.4 g/dL (3.5-5.0); Albumin Globulin Ratio 1.3 (1.0-2.8); Alkaline Phosphatase 56 U/L (38-126); Aspartate Aminotransferase 47 IU/L (17-59); BUN Creatinine Ratio 15.9 (6-22); Bilirubin Total 0.7 mg/dL (0.2-1.3); Blood Urea Nitrogen 18 mg/dL (9-20); Calcium 9.3 mg/dL (8.4-10.2); Carbon Dioxide 29 mmol/L (22-32); Chloride 101 mmol/L (98-107); Estimated Glomerular Filt Rate > 60 mL/min (>60); Globulin 3.3 g/dL (1.7-4.1); Glucose 123 mg/dL (80-110); HEMOLYSIS < 15 (0-50); Potassium 4.2 mmol/L (3.4-5.1); Sodium 139 mmol/L (137-145); Total Protein 7.7 g/dL (6.3-8.2)
[2021-11-27 11:06] LABS: Hemoglobin A1C% w Est Avg Glu 6.4 % (4.0-6.0)
[2021-11-27 11:13] LABS: LDL Cholesterol Direct 116 mg/dL (<100)
[2021-11-27 12:23] LABS: TSH w/ Reflex to FT4 3.61 uIU/mL (0.47-4.68)
== END ==
PROVIDERS: Family Provider Family Medicine; PCP Family Medicine; Referring Provider Family Medicine; Visit Provider Family Medicine
DX: E11.9 Type 2 diabetes mellitus without complications (principal); E78.2 Mixed hyperlipidemia; E03.9 Hypothyroidism, unspecified
CPT/HCPCS: 36415; 80053; 83036; 83721; 84443

== ENCOUNTER → 2023-01-29 06:39 | Outpatient (CLI) | payer MEDICARE, OTHER, SELFPAY ==
--- NOTE | 2023-01-29 | DI.ECHO.S_ITS ---
[facility]---------+ [facility] +---------+ : : [address] : : : : [id number] : : : : Phone: [phone]+ Echocardiogram Report + + :Name: NAOMI MARIE Study Date: 01/29/2023 Height: 71 in : :[facility] ReadingLocation: Weight: 240 lb : : Gender: Male BSA: 2.3 m2 : :: 1935 Age: 87 yrs BP: 147/85 mmHg: :Reason For Study: HYPERTENSION : :Ordering Physician: CARLIE, : :ERIC Performed By: Krysta Rodrigez : :Referring: ERIC SEXTON : + + Interpretation Summary The left ventricle is normal in size. There is mild concentric left ventricular hypertrophy. The left ventricular ejection fraction is normal. The ejection fraction is estimated to be 60-65%. This is unchanged compared to the previous study. The right ventricle is normal size. The right ventricular systolic function is normal. There is a pacemaker lead in the right ventricle. Mild MR, TR without any significant change from the previous study. Procedure: A two-dimensional transthoracic echocardiogram with color flow and Doppler was performed. The study quality was technically adequate. Comparison is made with the echocardiogram of 12/06/2017. The heart rate ranged between 70 bpm during the study. The patient was in normal sinus rhythm during the exam. Left Ventricle: The left ventricle is normal in size. There is mild concentric left ventricular hypertrophy. There is no thrombus. The ejection fraction is estimated to be 60-65%. The left ventricular ejection fraction is normal. This is unchanged compared to the previous study. There are no focal wall motion abnormalities. Diastolic parameters suggest a relaxation abnormality of the left ventricle, consistent with probable normal filling pressures. Right Ventricle: There is a pacemaker lead in the right ventricle. The right ventricle is normal size. The right ventricular systolic function is normal. Atria: The left atrial size is normal. The left atrium has mildly decreased in size since the prior echo exam. Right atrial size is normal. There is no Doppler evidence for an interatrial shunt. Mitral Valve: There is mild mitral annular calcification. There is mild mitral regurgitation. Compared to the prior echo study, there has been no change in the severity of mitral regurgitation. Aortic Valve: The aortic valve is trileaflet. The aortic valve opens well. The aortic valve is slightly calcified. There is no aortic valve stenosis. No aortic regurgitation is present. Tricuspid Valve: The tricuspid valve is normal in structure and function. There is mild tricuspid regurgitation. Right ventricular systolic pressure is estimated to be 25 mmHg plus the clinically estimated CVP which cannot be estimated on this exam. Compared to the prior echo exam, there has been no change in TR severity. Pulmonic Valve: The pulmonic valve leaflets are thin and pliable; valve motion is normal. There is trace pulmonic regurgitation. Great Vessels: The aortic root is normal size. The dimensions of the ascending aorta are normal. The inferior vena cava was not visualized. Pericardium/ Pleura There is no pericardial effusion. There is no pleural effusion. MMode/2D Measurements & Calculations LVIDd: 4.3 cm LVOT diam: 2.4 cm LVIDs: 2.9 cm Ao root diam: 3.5 cm FS: 32.4 % asc Aorta Diam: 3.3 cm EPSS: 1.3 cm Ao Arch Diam (Prox Trans): 3.0 cm IVSd: 1.2 cm LVPWd: 1.0 cm LV vega. diameter/BSA (cm/m^2): 1.9 LV sys. diameter/BSA (cm/m^2): 1.3 LA A2 area: 18.7 cm2 RA long axis: 4.8 cm LA A4 area: 12.5 cm2 RA area: 12.5 cm2 LA length (vol): 4.1 cm RA vol: 27.7 ml LA vol: 48.0 ml RA : 12.1 ml/m2 LA vol index: 21.1 ml/m2 RVD1 (basal): 3.7 cm TAPSE: 1.8 cm Doppler Measurements & Calculations Ao V2 max: 115.8 cm/sec LVOT Max Don: 83.0 cm/sec Ao V2 mean: 83.0 cm/sec LV V1 max P.8 mmHg Ao max P.4 mmHg LV V1 VTI: 18.5 cm Ao mean P.0 mmHg KARIN(I,D): 3.1 cm2 Ao V2 VTI: 27.5 cm KARIN(V,D): 3.3 cm2 sev ratio: 0.67 KARIN indexed to BSA (cm^2/m^2): 1.3 MV E max don: 72.6 cm/sec TR max don: 248.7 cm/sec MV A max don: 110.7 cm/sec TR max P.8 mmHg MV E/A: 0.66 PA V2 max: 81.1 cm/sec Med Peak E' Don: 5.2 cm/sec PA V2 mean: 59.4 cm/sec E/E' med: 14.0 PA mean P.5 mmHg Lat Peak E' Dno: 5.5 cm/sec PA pr(Accel): 29.3 mmHg E/E' lat: 13.2 E/e' average: 13.6 MV dec time: 0.23 sec SV(LVOT): 84.5 ml Reading Physician:12:38 PM
== END ==
PROVIDERS: Family Provider Family Medicine; PCP Family Medicine; Referring Provider Internal Medicine Cardiovascular Disease; Visit Provider Internal Medicine Cardiovascular Disease
DX: I08.1 Rheumatic disorders of both mitral and tricuspid valves (principal); I47.29 Other ventricular tachycardia; I10 Essential (primary) hypertension
CPT/HCPCS: 93306

== ENCOUNTER → 2023-05-22 14:14 | Outpatient (CLI) | payer MEDICARE, OTHER, SELFPAY ==
[2023-05-22 14:57] LABS: Alanine Aminotransferase 33 IU/L (<50); Albumin 4.3 g/dL (3.5-5.0); Albumin Globulin Ratio 1.1 (1.0-2.8); Alkaline Phosphatase 52 U/L (38-126); Aspartate Aminotransferase 38 IU/L (17-59); BUN Creatinine Ratio 24.8 (6-22); Bilirubin Total 0.7 mg/dL (0.2-1.3); Blood Urea Nitrogen 33 mg/dL (9-20); Carbon Dioxide 31 mmol/L (22-32); Chloride 101 mmol/L (98-107); Estimated Glomerular Filt Rate 52 mL/min (>60); Globulin 3.9 g/dL (1.7-4.1); Glucose 165 mg/dL (80-110); HEMOLYSIS < 15 (0-50); Potassium 3.8 mmol/L (3.4-5.1); Sodium 140 mmol/L (137-145); Total Protein 8.2 g/dL (6.3-8.2)
[2023-05-22 16:53] LABS: Thyroid Stimulating Hormone 5.79 uIU/mL (0.47-4.68)
== END ==
LOC: LAB 14:15
PROVIDERS: Family Provider Family Medicine; PCP Family Medicine; Referring Provider Internal Medicine Cardiovascular Disease; Visit Provider Internal Medicine Cardiovascular Disease
DX: Z79.899 Other long term (current) drug therapy (principal)
CPT/HCPCS: 36415; 80053; 84443

== ENCOUNTER 2023-08-14 23:01 | Emergency (ER) | payer MEDICARE, OTHER, SELFPAY ==
[2023-08-14 23:04] VITALS: BP 184/83; PULSE 70; RESP 20; TEMP 36.4; O2SAT 95; BMI 40.7
--- NOTE | 2023-08-14 23:17 | DI.CT.S_ITS ---
PROCEDURE: CT CERVICAL SPINE WO CON INDICATIONS: fall on thinners TECHNIQUE: Noncontrast 3 mm thick sections acquired from the skull base to the T4 level. Sagittal and coronal reformats were then constructed. For radiation dose reduction, the following was used: automated exposure control, adjustment of mA and/or kV according to patient size. COMPARISON: None. FINDINGS: Image quality: Excellent. Bones: No fractures or dislocations. Loss of normal cervical lordosis. There is multilevel degenerative disc disease, most pronounced and moderate at C5-C6 and C6-C7. Bilateral facet arthropathy, most pronounced and severe at C2-C3, C3-C4 and C4-C5 on the right. There is large bridging anterior osteophyte. Osteopenia. Visualized superior ribs are intact. Soft tissues: Prevertebral soft tissues are normal in thickness. No paravertebral hematomas. No apical pneumothoraces. IMPRESSION: 1. No displaced fracture or traumatic subluxation. 2. Spondylitic changes as described. 3. Osteopenia. Dictated by: Larry Ndiaye M.D. on 08/15/2023 at 0:15 Approved by: Larry Ndiaye M.D. on 08/15/2023 at 0:19
--- NOTE | 2023-08-14 23:17 | DI.CT.S_ITS ---
PROCEDURE: CT HEAD/BRAIN WO CON INDICATIONS: fall on thinners, diabetic TECHNIQUE: Noncontrast 4.5 mm thick angled axial sections acquired from the foramen magnum to the vertex, with coronal and sagittal reformats. For radiation dose reduction, the following was used: automated exposure control, adjustment of mA and/or kV according to patient size. COMPARISON: [facility], CT, HEAD WITHOUT CONTRAST, 01/18/2017, 10:35. FINDINGS: Image quality: Diagnostic. CSF spaces: Basal cisterns are patent. No extra-axial fluid collections. The ventricles are symmetric in size and shape. Brain: There are small foci of hyperdensities in the right parietal lobe compatible with intraparenchymal bleeds. There is vasogenic edema. No intracranial bleeds or masses. There is cerebral volume loss for age, with resultant ventricular and sulcal prominence. There are periventricular and deep white matter chronic small vessel ischemic changes. There is intracranial internal carotid artery atherosclerosis. Skull and face: Calvarium and visualized facial bones appear intact, without suspicious lesions. Sinuses: Visualized sinuses and mastoids are clear. IMPRESSION: 1. Acute intracranial bleed in the right parietal lobe. There is vasogenic edema in the right parietal lobe. The CT findings may be secondary to posttraumatic bleed or a bleeding mass. Recommend contrast-enhanced MRI for follow-up evaluation. 2. Cerebral volume loss and chronic microvascular ischemic changes. The result was discussed with Dr. Carlisle in ER. Dictated by: Larry Ndiaye M.D. on 08/15/2023 at 0:09 Approved by: Larry Ndiaye M.D. on 08/15/2023 at 0:15
[2023-08-14 23:36] LABS: Add Manual Diff / Slide Review NO; Basophils Absolute Auto 100 /uL (0-100); Basophils Percent Auto 1.3 % (0-2); Eosinophils Absolute Auto 100 /uL (0-450); Eosinophils Percent Auto 1.6 % (2-4); Hematocrit 42.2 % (41-53); Hemoglobin 14.5 g/dL (13.5-17.5); Lymphocytes Absolute Auto 1900 /uL (1100-4500); Lymphocytes Percent Auto 24.7 % (25-40); Mean Corpuscular HGB Conc 34.4 % (30-36); Mean Corpuscular Hemoglobin 31.5 PG (26-34); Mean Corpuscular Volume 91.5 fL (80-100); Monocytes Absolute Auto 400 /uL (0-900); Monocytes Percent Auto 5.7 % (3-14); Neutrophils Absolute Auto 5200 /uL (1500-7000); Neutrophils Percent Auto 66.7 % (50-75); Platelet Count 252 X10^3/uL (150-400); Red Blood Cell Count 4.62 X10^6/uL (4.5-5.9); Red Cell Distribution Width 15.5 % (11.6-14.8); White Blood Cell Count 7.8 X10^3/uL (4.5-11.0)
[2023-08-14 23:47] LABS: BUN Creatinine Ratio 27.1 (6-22); Blood Urea Nitrogen 32 mg/dL (9-20); Carbon Dioxide 27 mmol/L (22-32); Chloride 102 mmol/L (98-107); Estimated Glomerular Filt Rate > 60 mL/min (>60); Glucose 171 mg/dL (80-110); HEMOLYSIS 24 (0-50); Sodium 137 mmol/L (137-145)
[2023-08-14 23:49] VITALS: O2SAT 96
[2023-08-15] VITALS (9 sets, daily range): BP systolic 162–190; BP diastolic 70–87; PULSE 70–73; O2SAT 96–98
[2023-08-15 00:30] LABS: INR 1.5 (0.9-1.3); Prothrombin Time 16.9 SECONDS (9.4-12.5)
--- NOTE | 2023-08-15 00:30 | ED.GENADULT ---
HPI - General Adult General Chief complaint: Weakness Stated complaint: near syncope Time Seen by Provider: 08/14/23 23:16 Source: patient, family and EMS Mode of arrival: EMS Limitations: no limitations History of Present Illness HPI narrative: Patient is an 88-year-old male. Is on warfarin secondary to atrial fibrillation/presence of a pacemaker. Also has a acc-civrarr-zmasbaoet diabetic. Is here for evaluation of a injury. Patient states that he was using the restroom this evening. He states he stood up. He went to go wash his hands and had an episode that is somewhat difficult for him to describe. He states that he just felt like he was falling. He felt like his legs gave out from underneath him. He did not have any dizziness. Had no chest pain, palpitations, shortness of breath, headache or vision changes. He did hit the left side of his head on the bathroom wall. No loss of consciousness but was unable to get up on his own. This is the 4th time that this has happened over the past 4-6 months. Prior to the event he was at his baseline health. He does use a walker at baseline to help him ambulate. Reports no injuries to his upper or lower extremities. No neck pain. He currently states that he is relatively asymptomatic except for being somewhat anxious about everything that is going on. He is fairly certain that he did not trip this evening Related Data Home Medications Medication Instructions Recorded Confirmed hydrochlorothiazide 25 mg tablet 25 mg PO QDAY ##0 01/18/17 magnesium chloride 71.5 mg 1 ect PO QDAY ##0 01/18/17 (magnesium chloride) tablet,delayed release (Slow-Mag) pravastatin 40 mg tablet 20 mg PO HS ##0 01/18/17 Allergies Allergy/AdvReac Type Severity Reaction Status Date / Time INGREDIENT: NKA - NO KNOWN Allergy Unknown Uncoded 08/14/17 11:52 ALLERGIES NO KNOWN ALLERGIES - NKA Allergy Unknown Uncoded 08/14/17 11:52 From CRESTOR AdvReac Intermediate I Uncoded 08/14/17 11:52 COULDN'T WALK MUSCLE WEAKEN From LIPITOR AdvReac Intermediate MUSCLE Uncoded 08/14/17 11:52 WEAKNESS Review of Systems Review of Systems ROS Unobtainable: All systems reviewed & are unremarkable except as noted in HPI and below Patient History Social History (Reviewed 04/11/24 @ 01:32 by WILFREDO Mitchell Smoking Status: Former smoker Smoking Status: Former smoker Substance Use Type: does not use Exam Initial Vital Signs Initial Vital Signs: Vital Signs Temperature 97.5 F L 08/14/23 23:04 Pulse Rate 70 08/14/23 23:04 Respiratory Rate 20 08/14/23 23:04 Blood Pressure 184/83 H 08/14/23 23:04 Pulse Oximetry 95 08/14/23 23:04 Oxygen Delivery Method Room Air 08/14/23 23:04 Const General: cooperative, comfortable and No ill appearing HENMT Head: normal to inspection and normocephalic Chest Chest: No crepitus and No tenderness Resp Effort & Inspection: normal respiratory effort Auscultation: clear to auscultation bilaterally Cardio Rate: regular rate Rhythm: regular rhythm GI Inspection: normal to inspection and non-distended Back/Spine/Pelvis Cervical Spine: No cervical spinal tenderness Skin General: no rashes or lesions noted Neuro General: patient alert, patient awake, patient oriented x3 and moves all extremities Cognition: normal cognition Speech: speech normal Motor: muscle tone normal throughout Extrem General: capillary refill normal and edema Psych Appearance: grossly normal and well kempt Scores GCS [place] coma scale eye opening: Spontaneous [place] coma scale verbal response: Orientated Marine coma scale motor response: Obey commands Marine coma scale total score: 15 Course Orders Ordered: ED Orders 08/14/23 23:04 EKG-12 Lead Stat 08/14/23 23:17 CT cervical spine wo con Stat CT head/brain wo con Stat 08/14/23 23:27 Basic Metabolic Panel Stat Complete Blood Count AUTO DIFF Stat 08/15/23 00:15 PTT Partial Thromboplastin Umesh Stat Prothrombin Time INR Stat Nicardipine HCl 25 mg/ Sodium (Chloride) 250 mls @ 50 mls/hr IV TITRATE REA; Protocol Last Admin: 08/15/23 01:48 Dose: 5 mg/hr, 50 mls/hr Documented By: MARISSA Discontinued Medications Diazepam (Diazepam 2 Mg Tablet) 2 mg PO NOW ONE Stop: 08/15/23 01:31 Last Admin: 08/15/23 01:47 Dose: 2 mg Documented By: MARISSA Vital Signs Vital signs: Vital Signs - 8 hr 08/14/23 23:04 08/14/23 23:49 08/15/23 00:00 Temperature 97.5 F L Pulse Rate 70 71 Respiratory Rate 20 Blood Pressure 184/83 H Pulse Oximetry 95 96 97 Oxygen Delivery Method Room Air 08/15/23 00:18 08/15/23 00:18 08/15/23 00:30 Temperature Pulse Rate 73 71 Respiratory Rate Blood Pressure 169/79 H Pulse Oximetry 96 97 Oxygen Delivery Method Room Air 08/15/23 00:30 08/15/23 01:00 08/15/23 01:01 Temperature Pulse Rate 70 71 Respiratory Rate Blood Pressure 167/76 H Pulse Oximetry 98 97 Oxygen Delivery Method Room Air 08/15/23 01:01 08/15/23 01:24 08/15/23 01:24 Temperature Pulse Rate 70 Respiratory Rate Blood Pressure 190/87 H 174/78 H 169/77 H Pulse Oximetry 97 Oxygen Delivery Method 08/15/23 01:30 08/15/23 01:30 08/15/23 01:58 Temperature Pulse Rate 70 70 Respiratory Rate Blood Pressure 174/78 H Pulse Oximetry 97 98 Oxygen Delivery Method 08/15/23 01:58 08/15/23 02:00 08/15/23 02:00 Temperature Pulse Rate 71 Respiratory Rate Blood Pressure 179/75 H 162/70 H Pulse Oximetry 97 Oxygen Delivery Method Room Air Medical Decision Making Lab Data Lab results reviewed: Yes I reviewed the patient's lab results. 08/14/23 23:27 08/14/23 23:27 Labs: Lab Results 08/14/23 Range/Units 23:27 WBC 7.8 (4.5-11.0) X10^3/uL RBC 4.62 (4.5-5.9) X10^6/uL Hgb 14.5 (13.5-17.5) g/dL Hct 42.2 (41-53) % MCV 91.5 (80-100) fL MCH 31.5 (26-34) PG MCHC 34.4 (30-36) % RDW 15.5 H (11.6-14.8) % Plt Count 252 (150-400) X10^3/uL Neut % (Auto) 66.7 (50-75) % Lymph % (Auto) 24.7 L (25-40) % Luna % (Auto) 5.7 (3-14) % Eos % (Auto) 1.6 L (2-4) % Baso % (Auto) 1.3 (0-2) % Neut # (Auto) 5200 (6458-4937) /uL Lymph # (Auto) 1900 (3105-3979) /uL Luna # (Auto) 400 (0-900) /uL Eos # (Auto) 100 (0-450) /uL Baso # (Auto) 100 (0-100) /uL PT 16.9 H (9.4-12.5) SECONDS INR 1.5 H (0.9-1.3) APTT 44 H (25.1-36.5) SECONDS Sodium 137 (137-145) mmol/L Potassium 4.0 (3.4-5.1) mmol/L Chloride 102 (98-107) mmol/L Carbon Dioxide 27 (22-32) mmol/L BUN 32 H (9-20) mg/dL Creatinine 1.18 (0.66-1.25) mg/dL Estimated GFR > 60 (>60) mL/min BUN/Creatinine Ratio 27.1 H (6-22) Glucose 171 H (80-110) mg/dL Calcium 10.0 (8.4-10.2) mg/dL Imaging Data CT scan - head: Radiologist's Impression: PROCEDURE: CT HEAD/BRAIN WO CON INDICATIONS: fall on thinners, diabetic TECHNIQUE: Noncontrast 4.5 mm thick angled axial sections acquired from the foramen magnum to the vertex, with coronal and sagittal reformats. For radiation dose reduction, the following was used: automated exposure control, adjustment of mA and/or kV according to patient size. COMPARISON: [facility], CT, HEAD WITHOUT CONTRAST, 01/18/2017, 10:35. FINDINGS: Image quality: Diagnostic. CSF spaces: Basal cisterns are patent. No extra-axial fluid collections. The ventricles are symmetric in size and shape. Brain: There are small foci of hyperdensities in the right parietal lobe compatible with intraparenchymal bleeds. There is vasogenic edema. No intracranial bleeds or masses. There is cerebral volume loss for age, with resultant ventricular and sulcal prominence. There are periventricular and deep white matter chronic small vessel ischemic changes. There is intracranial internal carotid artery atherosclerosis. Skull and face: Calvarium and visualized facial bones appear intact, without suspicious lesions. Sinuses: Visualized sinuses and mastoids are clear. IMPRESSION: 1. Acute intracranial bleed in the right parietal lobe. There is vasogenic edema in the right parietal lobe. The CT findings may be secondary to posttraumatic bleed or a bleeding mass. Recommend contrast-enhanced MRI for follow-up evaluation. 2. Cerebral volume loss and chronic microvascular ischemic changes. The result was discussed with Dr. Carlisle in ER. CT - cervical spine: Radiologist's Impression: PROCEDURE: CT CERVICAL SPINE WO CON INDICATIONS: fall on thinners TECHNIQUE: Noncontrast 3 mm thick sections acquired from the skull base to the T4 level. Sagittal and coronal reformats were then constructed. For radiation dose reduction, the following was used: automated exposure control, adjustment of mA and/or kV according to patient size. COMPARISON: None. FINDINGS: Image quality: Excellent. Bones: No fractures or dislocations. Loss of normal cervical lordosis. There is multilevel degenerative disc disease, most pronounced and moderate at C5-C6 and C6-C7. Bilateral facet arthropathy, most pronounced and severe at C2-C3, C3-C4 and C4-C5 on the right. There is large bridging anterior osteophyte. Osteopenia. Visualized superior ribs are intact. Soft tissues: Prevertebral soft tissues are normal in thickness. No paravertebral hematomas. No apical pneumothoraces. IMPRESSION: 1. No displaced fracture or traumatic subluxation. 2. Spondylitic changes as described. 3. Osteopenia. ECG Data Attestation: I personally reviewed and interpreted this ECG as follows: Interpretation: Atrially paced Ventricular rate is 70 Normal axis QRS [address] T wave changes MDM Narrative Medical decision making narrative: Modified trauma secondary to fall on anticoagulation. Patient is alert and oriented x3. GCS of 15. His INR is 1.5 so will hold on any reversal of his warfarin. Cervical spine CT is unremarkable. Head CT shows intraparenchymal bleed which is somewhat unusual for a traumatic injury. There was some question about a underlying mass. The patient does not have any diagnosis of malignancy. Initial blood pressure elevated at 190/87. This improved to the 160s systolic without specific intervention. I did discuss the case with Dr. Francisco with Neurosurgery at [facility] who accepts the patient for transfer. Patient is stable for transport. Discussed the diagnosis and the need for transfer with the patient and his at bedside. They expressed understanding and agreement. The patient is a full code. Discharge Plan Departure Patient Disposition: Xfer Acute Care Hospital Clinical Impression: Intraparenchymal hemorrhage of brain Prescriptions: No Action magnesium chloride [Slow-Mag] 71.5 MG tablet,delayed release (DR/EC) 1 ect PO QDAY Qty: 0 pravastatin 40 MG tablet 20 mg PO HS Qty: 0 hydrochlorothiazide 25 MG tablet 25 mg PO QDAY Qty: 0 Referrals: Yoly Pereira MD [Primary Care Provider] -
[2023-08-15 00:32] LABS: PTT Partial Thromboplastin Tim 44 SECONDS (25.1-36.5)
[2023-08-15] MEDS: diazePAM 2 MG TABLET PO (01:47)
[2023-08-15] MEDS: NICARDIPINE 25 MG in SODIUM CHLORIDE 0.9% 240 ML 50 MG IV (01:48)
--- NOTE | 2023-08-28 12:22 | PC.NURSE ---
late entry- per RN the patient was transferred to [facility] with Nicardipine drip infusing.
== END 2023-08-15 02:20 | disposition short-term general hospital (02) ==
PROVIDERS: Emergency Provider Emergency Medicine; Family Provider Family Medicine; PCP Family Medicine
DX: S06.2X0A Diffuse traumatic brain injury without loss of consciousness, initial encounter (principal); R55 Syncope and collapse; Z79.01 Long term (current) use of anticoagulants
CPT/HCPCS: 36415; 70450; 72125; 80048; 85025; 85610; 85730; 93005; 93010; 96365; 99284

== ENCOUNTER → 2023-10-14 08:39 | Outpatient (CLI) | payer MEDICARE, OTHER, SELFPAY ==
--- NOTE | 2023-10-14 | DI.US.S_ITS ---
PROCEDURE: US PERIPH VENOUS LOW EXTREM RT INDICATIONS: WORSENING PERFUSION DUE TO HX OF DVT TECHNIQUE: Real-time imaging, as well as color and pulse Doppler interrogation, were performed of the lower extremity deep veins from the inguinal ligament to the popliteal fossa, with documentation of the visualized calf veins. COMPARISON: None. FINDINGS: The common femoral, femoral, popliteal, and the visualized calf veins are normally compressible, and free of intraluminal thrombus. Color and pulse Doppler demonstrate normal phasic intraluminal flow. There is normal augmentation response to distal compression maneuver. IMPRESSION: No findings of lower extremity deep venous thrombosis. Dictated by: Shruthi Gallagher M.D. on 10/14/2023 at 14:20 Approved by: Shruthi Gallagher M.D. on 10/14/2023 at 14:20
== END ==
PROVIDERS: Family Provider Family Medicine; PCP Family Medicine; Referring Provider Registered Nurse; Visit Provider Registered Nurse
DX: I82.401 Acute embolism and thrombosis of unspecified deep veins of right lower extremity (principal)
CPT/HCPCS: 93971

== ENCOUNTER 2023-10-23 16:38 | Inpatient (IN) | payer MEDICARE, OTHER, SELFPAY ==
[2023-10-23] VITALS (27 sets, daily range): BP systolic 81–146; BP diastolic 42–91; PULSE 69–80; RESP 14–26; TEMP 36.8; O2SAT 92–98; BMI 29.2
--- NOTE | 2023-10-23 16:58 | EKG_ITS ---
[address] [address] Test Date: 2023-10-23 Pat Name: Will Skinner Department: Room: 90B Gender: Male Assessment Analyst: JAYLA : [id number] Requested By: Order Number: [id number] Reading MD: Gael Del Cid Measurements Intervals [place] Rate: 70 P: OK: 192 QRS: 36 QRSD: 74 T: 71 QT: 402 QTc: 434 Interpretive Statements Atrial-paced rhythm Electronically Signed On 10-25-2023 16:16:00 PDT by Gael Del Cid
[2023-10-23 17:07] LABS: Add Manual Diff / Slide Review NO; Basophils Absolute Auto 100 /uL (0-100); Basophils Percent Auto 0.9 % (0-2); Eosinophils Absolute Auto 0 /uL (0-450); Eosinophils Percent Auto 0.1 % (2-4); Hematocrit 41.1 % (41-53); Lymphocytes Absolute Auto 1500 /uL (1100-4500); Lymphocytes Percent Auto 21.4 % (25-40); Mean Corpuscular HGB Conc 34.1 % (30-36); Mean Corpuscular Hemoglobin 31.3 PG (26-34); Mean Corpuscular Volume 91.6 fL (80-100); Monocytes Absolute Auto 100 /uL (0-900); Monocytes Percent Auto 1.6 % (3-14); Neutrophils Absolute Auto 5200 /uL (1500-7000); Platelet Count 216 X10^3/uL (150-400); Red Blood Cell Count 4.49 X10^6/uL (4.5-5.9); Red Cell Distribution Width 17.5 % (11.6-14.8); White Blood Cell Count 6.9 X10^3/uL (4.5-11.0)
[2023-10-23 17:12] LABS: Alanine Aminotransferase 38 IU/L (<50); Albumin 3.4 g/dL (3.5-5.0); Albumin Globulin Ratio 1.2 (1.0-2.8); Alkaline Phosphatase 53 U/L (38-126); Aspartate Aminotransferase 27 IU/L (17-59); Bilirubin Total 0.8 mg/dL (0.2-1.3); Blood Urea Nitrogen 38 mg/dL (9-20); Carbon Dioxide 29 mmol/L (22-32); Chloride 102 mmol/L (98-107); Estimated Glomerular Filt Rate > 60 mL/min (>60); Globulin 2.9 g/dL (1.7-4.1); Glucose 206 mg/dL (80-110); HEMOLYSIS 28 (0-50); Lipase 93 U/L (23-300); Potassium 4.5 mmol/L (3.4-5.1); Sodium 136 mmol/L (137-145); Total Protein 6.3 g/dL (6.3-8.2)
--- NOTE | 2023-10-23 18:36 | ED_ITS ---
HPI - Abdominal Pain General Chief Complaint: Abdominal Pain Stated Complaint: L Abd px Time Seen by Provider: 10/23/23 18:13 Source: patient and EMS Mode of arrival: EMS History of Present Illness HPI narrative: 88-year-old male with recently diagnosed glioblastoma (currently awaiting radiation treatment at [facility]) presents by EMS from home for abdominal pain. Patient began suddenly earlier today and has been constant since onset. Everything makes it worse, nothing seems to make it better. No medications taken prior to arrival. Reports previous history of appendectomy and cholecystectomy. Related Data Home Medications Medication Instructions Recorded Confirmed hydrochlorothiazide 25 mg tablet 25 mg PO QDAY ##0 01/18/17 magnesium chloride 71.5 mg 1 ect PO QDAY ##0 01/18/17 (magnesium chloride) tablet,delayed release (Slow-Mag) pravastatin 40 mg tablet 20 mg PO HS ##0 01/18/17 Allergies Allergy/AdvReac Type Severity Reaction Status Date / Time INGREDIENT: NKA - NO KNOWN Allergy Unknown Uncoded 08/14/17 11:52 ALLERGIES NO KNOWN ALLERGIES - NKA Allergy Unknown Uncoded 08/14/17 11:52 From CRESTOR AdvReac Intermediate I Uncoded 08/14/17 11:52 COULDN'T WALK MUSCLE WEAKEN From LIPITOR AdvReac Intermediate MUSCLE Uncoded 08/14/17 11:52 WEAKNESS Patient History Social History Smoking Status: Former smoker alcohol intake: former Smoking Status: Former smoker Substance Use Type: does not use Exam Initial Vital Signs Initial Vital Signs: Vital Signs Pulse Rate 70 10/23/23 16:46 Pulse Oximetry 94 10/23/23 16:46 Const: Awake, alert, ill-appearing, appears chronically unwell Cardiac: regular rate, regular rhythm RESP: unlabored, clear bilaterally, no wheezing GI: Soft, diffuse abdominal tenderness to palpation with rebound Skin: Warm, Dry, intact, no rashes Neuro: AO x3, CN II-XII grossly intact, moves all extremities Course Orders Ordered: ED Orders 10/23/23 18:35 CT abdomen pelvis w con Stat 10/24/23 01:11 Consult to Discharge Planning Routine LDH [Lactate Dehydrogenase] Routine Education, smoking cessation ONGOING 10/24/23 05:00 Basic Metabolic Panel Routine Complete Blood Count AUTO DIFF Routine Hydromorphone HCl (Hydromorphone 0.5 Mg Inj) 0.5 mg IV Q3H PRN PRN Reason: Pain, Moderate (4-6) Hydromorphone HCl (Hydromorphone 1 Mg Inj) 1 mg IV Q3H PRN PRN Reason: Pain, Severe (7-10) NOREPINEPHRINE BITARTRATE/D5W (Levophed) 4 mg in 250 mls @ 35.72 mls/hr IV TITRATE REA; Protocol Last Titration: 10/24/23 01:32 Dose: 0.08 mcg/kg/min, 28.576 mls/hr Documented By: Admin: 10/24/23 00:08 Dose: 0.1 mcg/kg/min, 35.72 mls/hr Documented By: JOE Sodium Chloride (Normal Saline 0.9%) 1,000 mls @ 135 mls/hr IV CONT REA Last Admin: 10/24/23 01:36 Dose: 135 mls/hr Documented By: JEFF Acetaminophen (Ofirmev) 1,000 mg in 100 mls @ 400 mls/hr IV Q6H PRN PRN Reason: Fever/Mild Pain (1-3) Piperacillin Sod/Tazobactam (Sod 4.5 gm/ Sodium Chloride) 100 mls @ 25 mls/hr IV Q8H [facility] Last Admin: 10/24/23 01:36 Dose: 25 mls/hr Documented By: JEFF Ketorolac Tromethamine (Ketorolac 30 Mg/Ml Vial) 15 mg IV Q8H REA Stop: 10/29/23 01:59 Last Admin: 10/24/23 01:35 Dose: Not Given Documented By: JEFF Naloxone HCl (Naloxone 0.4 Mg/Ml Vial) 0.2 mg IV Q2MIN PRN PRN Reason: Opiate Reversal Ondansetron HCl (Ondansetron 4 Mg/2 Ml Inj) 4 mg IV Q8HR PRN PRN Reason: Nausea And Vomiting Pantoprazole Sodium (Pantoprazole 40 Mg Vial) 20 mg IV DAILY [facility] Discontinued Medications Hydromorphone HCl (Hydromorphone 1 Mg Inj) 1 mg IV NOW ONE Stop: 10/23/23 20:15 Last Admin: 10/23/23 20:18 Dose: 1 mg Documented By: JOE Piperacillin Sod/Tazobactam (Sod 4.5 gm/ Sodium Chloride) 100 mls @ 200 mls/hr IV NOW ONE Stop: 10/23/23 19:30 Last Infusion: 10/23/23 20:18 Dose: Infused Documented By: Admin: 10/23/23 19:45 Dose: 200 mls/hr Documented By: JOE Sodium Chloride (Normal Saline 0.9%) 1,000 mls @ 1,000 mls/hr IV BOLUS ONE Stop: 10/23/23 21:51 Last Infusion: 10/23/23 22:50 Dose: Infused Documented By: Admin: 10/23/23 20:53 Dose: 1,000 mls/hr Documented By: JOE Sodium Chloride (Normal Saline 0.9%) 1,000 mls @ 1,000 mls/hr IV BOLUS ONE Stop: 10/23/23 23:57 Last Infusion: 10/24/23 00:12 Dose: Infused Documented By: Admin: 10/23/23 23:03 Dose: 1,000 mls/hr Documented By: JOE Morphine Sulfate (Morphine 4 Mg/Ml Inj) 4 mg IV NOW ONE Stop: 10/23/23 18:36 Last Admin: 10/23/23 18:43 Dose: 4 mg Documented By: SEAN Ondansetron HCl (Ondansetron 4 Mg/2 Ml Inj) 4 mg IV NOW PRN PRN Reason: Nausea And Vomiting Ondansetron HCl (Ondansetron 4 Mg Odt) 4 mg PO NOW PRN PRN Reason: Nausea And Vomiting Ondansetron HCl (Ondansetron 4 Mg/2 Ml Inj) 4 mg IV NOW ONE Stop: 10/23/23 18:36 Last Admin: 10/23/23 18:44 Dose: Not Given Documented By: SEAN Vital Signs Vital signs: Vital Signs - 8 hr 10/23/23 18:30 10/23/23 18:30 10/23/23 18:45 Pulse Rate 70 Respiratory Rate 24 Blood Pressure 103/56 L 107/55 L Pulse Oximetry 95 Oxygen Delivery Method 10/23/23 18:45 10/23/23 18:48 10/23/23 18:48 Pulse Rate 71 69 Respiratory Rate 23 23 Blood Pressure 108/61 Pulse Oximetry 96 96 Oxygen Delivery Method 10/23/23 18:50 10/23/23 18:50 10/23/23 19:00 Pulse Rate 74 Respiratory Rate 21 Blood Pressure 104/56 L 105/58 L Pulse Oximetry 96 Oxygen Delivery Method 10/23/23 19:00 10/23/23 19:21 10/23/23 19:21 Pulse Rate 69 74 Respiratory Rate 17 18 Blood Pressure 96/66 Pulse Oximetry 95 96 Oxygen Delivery Method 10/23/23 19:30 10/23/23 19:30 10/23/23 20:00 Pulse Rate 72 80 Respiratory Rate 16 19 Blood Pressure 109/57 L Pulse Oximetry 97 98 Oxygen Delivery Method 10/23/23 20:00 10/23/23 20:20 10/23/23 20:30 Pulse Rate 69 Respiratory Rate 18 Blood Pressure 100/54 L 100/54 L 90/48 L Pulse Oximetry 95 Oxygen Delivery Method Room Air 10/23/23 20:30 10/23/23 20:40 10/23/23 20:40 Pulse Rate 69 70 Respiratory Rate 14 15 Blood Pressure 83/45 L Pulse Oximetry 94 92 Oxygen Delivery Method 10/23/23 21:00 10/23/23 21:00 10/23/23 21:13 Pulse Rate 70 Respiratory Rate 14 Blood Pressure 81/46 L 92/50 L Pulse Oximetry 94 Oxygen Delivery Method 10/23/23 21:13 10/23/23 21:15 10/23/23 21:30 Pulse Rate 70 69 Respiratory Rate 16 18 Blood Pressure 92/50 L 110/50 L Pulse Oximetry 95 95 Oxygen Delivery Method Room Air 10/23/23 21:30 10/23/23 22:00 10/23/23 22:00 Pulse Rate 69 70 Respiratory Rate 15 15 Blood Pressure 102/55 L Pulse Oximetry 95 96 Oxygen Delivery Method 10/23/23 22:30 10/23/23 22:30 10/23/23 22:43 Pulse Rate 70 Respiratory Rate 14 Blood Pressure 97/52 L 89/42 L Pulse Oximetry 95 Oxygen Delivery Method 10/23/23 22:43 10/23/23 23:00 10/23/23 23:00 Pulse Rate 70 69 Respiratory Rate 20 16 Blood Pressure 100/53 L Pulse Oximetry 92 96 Oxygen Delivery Method 10/23/23 23:04 10/23/23 23:30 10/23/23 23:30 Pulse Rate 69 69 Respiratory Rate 18 16 Blood Pressure 100/53 L 93/49 L Pulse Oximetry 98 95 Oxygen Delivery Method Room Air 10/24/23 00:00 10/24/23 00:00 10/24/23 00:00 Pulse Rate 70 Respiratory Rate 15 Blood Pressure 80/50 L Pulse Oximetry 77 L Oxygen Delivery Method Room Air 10/24/23 00:04 10/24/23 00:04 10/24/23 00:15 Pulse Rate 71 Respiratory Rate 18 Blood Pressure 86/46 L 119/56 L Pulse Oximetry 88 L Oxygen Delivery Method 10/24/23 00:15 10/24/23 00:19 10/24/23 00:19 Pulse Rate 79 72 Respiratory Rate 16 14 Blood Pressure 112/54 L Pulse Oximetry 95 95 Oxygen Delivery Method 10/24/23 00:20 10/24/23 00:20 10/24/23 00:25 Pulse Rate 71 Respiratory Rate 15 Blood Pressure 119/58 L 112/58 L Pulse Oximetry 95 Oxygen Delivery Method MDM - Abdominal Pain Differential Diagnosis Differential diagnosis: Likely abdominal pain, acute appendicitis and calculus of kidney Lab Data 10/23/23 16:54 10/23/23 16:54 Labs: Lab Results 10/23/23 10/23/23 Range/Units 16:54 20:51 WBC 6.9 (4.5-11.0) X10^3/uL RBC 4.49 L (4.5-5.9) X10^6/uL Hgb 14.0 (13.5-17.5) g/dL Hct 41.1 (41-53) % MCV 91.6 (80-100) fL MCH 31.3 (26-34) PG MCHC 34.1 (30-36) % RDW 17.5 H (11.6-14.8) % Plt Count 216 (150-400) X10^3/uL Neut % (Auto) 76.0 H (50-75) % Lymph % (Auto) 21.4 L (25-40) % [place] % (Auto) 1.6 L (3-14) % Eos % (Auto) 0.1 L (2-4) % Baso % (Auto) 0.9 (0-2) % Neut # (Auto) 5200 (8999-7310) /uL Lymph # (Auto) 1500 (0565-1459) /uL [place] # (Auto) 100 (0-900) /uL Eos # (Auto) 0 (0-450) /uL Baso # (Auto) 100 (0-100) /uL Sodium 136 L (137-145) mmol/L Potassium 4.5 (3.4-5.1) mmol/L Chloride 102 (98-107) mmol/L Carbon Dioxide 29 (22-32) mmol/L BUN 38 H (9-20) mg/dL Creatinine 1.00 (0.66-1.25) mg/dL Estimated GFR > 60 (>60) mL/min BUN/Creatinine Ratio 38.0 H (6-22) Glucose 206 H (80-110) mg/dL Lactate 3.5 H 2.6 H (0.7-2.1) mmol/L Calcium 9.0 (8.4-10.2) mg/dL Total Bilirubin 0.8 (0.2-1.3) mg/dL AST 27 (17-59) IU/L ALT 38 (<50) IU/L Alkaline Phosphatase 53 (38-126) U/L Total Protein 6.3 (6.3-8.2) g/dL Albumin 3.4 L (3.5-5.0) g/dL Globulin 2.9 (1.7-4.1) g/dL Albumin/Globulin Ratio 1.2 (1.0-2.8) Lipase 93 (23-300) U/L Point of care testing: Urine Dip Bedside Urine Glucose Negative Bedside Urine Bilirubin + 1 Bedside Urine Ketone - Negative Urine Specific [place] 1.010 Bedside Urine Occult Blood - Negative Bedside Urine pH 6.0 Bedside Urine Protein +/- 15 Bedside Urine Urobilinogen +/- 1mg Bedside Urine Nitrite - Negative Bedside Urine Leukocytes - Negative Esterase Imaging Data CT scan - abdomen/pelvis: Radiologist's Impression: [address] [address] [address] Scan Report Signed Patient: Will Skinner MR#: [id number] : 1935 Acct:[id number] Age/Sex: 88 / M Date of Service: 10/23/23 Loc: ED Accession Number: [id number] Procedure: CT abdomen pelvis w con Ordering Provider: Regi Santos MD PROCEDURE: CT ABDOMEN PELVIS W CON INDICATIONS: BLQ ABD PAIN, REBOUND TENDERNESS TECHNIQUE: After the administration of intravenous contrast, axial sections acquired from the lung bases to the pubic symphysis. Coronal and sagittal reformats were performed. For radiation dose reduction, the following was used: automated exposure control, adjustment of mA and/or kV according to patient size. COMPARISON: [facility], CT, KIDNEY/ URETER/BLADDER, 10/11/2013, 11:56. FINDINGS: Image quality: Diagnostic. Lower Chest: Mild left basilar atelectasis. Pacemaker wires are noted. ABDOMEN: Liver: No solid mass. Gallbladder: Surgically absent. Biliary ducts: No biliary dilation. Pancreas: No ductal dilation. Cystic area within the tail the pancreas measuring 1.5 cm (2/23). Spleen: Size is within normal limits. Adrenal Glands: Stable left adrenal nodule measuring 1.3 cm.. Kidneys and Ureters: No hydronephrosis. No solid mass. No complex renal cystic lesion which requires follow up. Bilateral renal cysts and subcentimeter hypodensities which are too small technique characterize. Punctate calcification at the inferior pole the left kidney. Stomach and Bowel: Dilated loops of small bowel measure up to 3.5 cm containing gas and fecalized contents, suggesting a chronic etiology. No definite transition point is seen. Focal area of wall thickening involving the sigmoid colon (2/64) with a focal outpouching with surrounding inflammation. Diverticulosis is present. Peritoneum: No abnormal intraperitoneal fluid. Small extraluminal gas is noted.. Ventral Wall: No significant ventral hernia. Abdominal Nodes: No retroperitoneal or mesenteric adenopathy by size criteria. Vessels: Aorta and inferior vena cava are normal in size. Atherosclerotic vascular calcifications. PELVIS: Pelvic Organs: Prostatomegaly.. Bladder: No bladder wall thickening, accounting for underdistention. There are 2 stones layering dependently within the left posterior bladder measuring up to 5 mm. Pelvic Nodes: No enlarged lymph nodes. Miscellaneous: No inguinal hernias are seen. Bones: No aggressive osseous abnormality. Degenerative changes of the spine in a pattern consistent with diffuse idiopathic skeletal hyperostosis.. IMPRESSION: 1. Focal area of colonic wall thickening within the sigmoid colon with an outpouching and surrounding inflammation. There is significant diverticulosis in this region. Findings may represent diverticulitis. Given extraluminal gas, findings are concerning for perforation, possibly within this region. If no surgical intervention is performed, recommend colonoscopy once inflammation resolves to exclude underlying lesion given the focal nature of wall thickening. 2. Dilated loops of small bowel measuring up to 3.5 cm with fecalization of the internal contents, suggesting a chronic etiology. No definite transition point is seen. 3. Cystic area within the tail the pancreas measuring 1.5 cm. Consider nonurgent MRI pancreas protocol for further evaluation. 4. Please see above for additional chronic findings. Findings discussed with Dr. Santos at 7:44 p.m. On 10/23/2023. Dictated by: Kendall Flood M.D. on 10/23/2023 at 19:34 Approved by: Kendall Flood M.D. on 10/23/2023 at 19:45 MDM Narrative Medical decision making narrative: Ill-appearing patient with bilateral lower quadrant abdominal pain. Patient was diffusely tender across his abdomen with positive rebound. Laboratory work, CT imaging ordered. Medications for pain and nausea ordered as well. Laboratory work is significant for WBC count 6.9, hemoglobin 14, platelets 216, sodium 136, potassium 4.5, creatinine 1.0, lactic acid 3.5. Preliminary review of CT scans shows what appears to be small foci of free air diffuse throughout the abdomen, presumably from the sigmoid colon. Empiric Zosyn ordered. Call placed to general surgery for consult. Radiology confirms free air in the abdomen, likely from sigmoid. Question diverticulitis versus neoplasm. Patient case discussed with Dr. Trevino of General surgery, who recommends no surgery at this time and treatment with antibiotics. Patient and informed of lab and imaging findings at bedside, they are in agreement with admission at this time. Prior to receiving a room upstairs patient's blood pressure dropped to 80s over 50s consistently despite 2 L IV fluid bolus. Recommended central line placement for pressor support, patient adamantly declined central line placement and Levophed drip initiated through peripheral lines. Patient to be admitted to the ICU for further treatment. Critical Care Time Critical Care Time Critical Care Time: Yes Total Critical Care Time: 41 Attestation: Perforated colon requiring IV antibiotics, IV fluid resuscitation, blood pressure support. Discharge Plan Departure Patient Disposition: Admitted As Inpatient Clinical Impression: Perforated diverticulum of intestine, Abdominal pain, Glioblastoma Admit Date/Time: 10/24/23 00:25 Admit Provider: Reagan Langley
[2023-10-23] MEDS: MORPHINE 4 MG/ML INJ IV (18:43)
[2023-10-23 19:11] LABS: Lactate (Lactic Acid) 3.5 mmol/L (0.7-2.1)
[2023-10-23] MEDS: PIPERACILLIN/TAZO 4.5 GM in SODIUM CHLORIDE 0.9% 100 ML IV (19:45)
[2023-10-23] MEDS: HYDROMORPHONE 1 MG INJ IV (20:18)
[2023-10-23 20:30] LABS: Reflexed Lactate in 2 Hours Y
[2023-10-23] MEDS: SODIUM CHLORIDE 0.9% 1,000 ML 1000 ML IV ×2 (20:53→23:03)
--- NOTE | 2023-10-23 21:01 | PM.CALLCOV.1 ---
Call Coverage Note Note Date of Patient Contact: 10/23/23 Time of Patient Contact: 21:02 Narrative of Care Provided: 88M admitted for management of diverticulitis with micro perforation. CT reviewed no large volume free air, or abscess. WBC 7, VSS. -NPO -Zosyn -Non operative management
[2023-10-23 21:19] LABS: Lactate 2HR (Lactic Acid Rflx) 2.6 mmol/L (0.7-2.1)
[2023-10-24] VITALS (90 sets, daily range): BP systolic 68–142; BP diastolic 36–76; PULSE 69–79; RESP 14–33; TEMP 35.9–37.1; O2SAT 77–96; BMI 29.2
[2023-10-24] MEDS: NOREPINEPHRINE BITARTRATE/D5W 4 MG/250 ML PLAST..BAG 35.72 MG IV (00:08)
--- NOTE | 2023-10-24 00:43 | PC.NURSE ---
Tom LAMB aware of pt's BP post admin levo, Tom LAMB ok to continue levo with current vital signs, report given to [employer]IDENTIAL DRIVER, RR even and unlabored, NAD noted.
[2023-10-24] MEDS: PIPERACILLIN/TAZO 4.5 GM in SODIUM CHLORIDE 0.9% 100 ML IV ×3 (01:36→17:39)
[2023-10-24] MEDS: SODIUM CHLORIDE 0.9% 1,000 ML 135 ML IV ×3 (01:36→23:41)
[2023-10-24 02:59] LABS: MRSA (Nasal) PCR DETECTED (Not Detect)
[2023-10-24 05:43] LABS: Add Manual Diff / Slide Review NO; Basophils Absolute Auto 0 /uL (0-100); Basophils Percent Auto 0.2 % (0-2); Eosinophils Absolute Auto 0 /uL (0-450); Eosinophils Percent Auto 0.1 % (2-4); Hematocrit 39.2 % (41-53); Hemoglobin 13.4 g/dL (13.5-17.5); Lymphocytes Absolute Auto 2200 /uL (1100-4500); Lymphocytes Percent Auto 24.1 % (25-40); Mean Corpuscular HGB Conc 34.2 % (30-36); Mean Corpuscular Hemoglobin 31.4 PG (26-34); Mean Corpuscular Volume 91.9 fL (80-100); Monocytes Absolute Auto 200 /uL (0-900); Monocytes Percent Auto 1.9 % (3-14); Neutrophils Absolute Auto 6700 /uL (1500-7000); Neutrophils Percent Auto 73.7 % (50-75); Platelet Count 221 X10^3/uL (150-400); Red Blood Cell Count 4.27 X10^6/uL (4.5-5.9); Red Cell Distribution Width 17.3 % (11.6-14.8); White Blood Cell Count 9.1 X10^3/uL (4.5-11.0)
[2023-10-24] MEDS: NOREPINEPHRINE BITARTRATE/D5W 4 MG/250 ML PLAST..BAG 57.152 MG IV (05:57)
[2023-10-24 05:59] LABS: BUN Creatinine Ratio 33.6 (6-22); Blood Urea Nitrogen 37 mg/dL (9-20); Calcium 8.2 mg/dL (8.4-10.2); Carbon Dioxide 27 mmol/L (22-32); Chloride 107 mmol/L (98-107); Estimated Glomerular Filt Rate > 60 mL/min (>60); Glucose 103 mg/dL (80-110); HEMOLYSIS < 15 (0-50); Potassium 4.1 mmol/L (3.4-5.1); Sodium 137 mmol/L (137-145)
[2023-10-24 06:06] LABS: Lactate Dehydrogenase 260 U/L (120-246)
--- NOTE | 2023-10-24 08:17 | DI.ECHO.S_ITS ---
[place] [facility] : : [address] : [address] : : [id number] : : Phone: [phone] Echocardiogram Report + + :Name: NAOMI MARIE Study Date: 10/24/2023 Height: 71 in : :[facility] ReadingLocation: Weight: 209 lb : : Gender: Male BSA: 2.1 m2 : :: 1935 Age: 88 yrs BP: 117/63 mmHg: :Reason For Study: LOW BLOOD PRESSURE : :Ordering Physician: HIRAL, : :YUDI Performed By: Krysta Rodrigez : :Referring: YUDI BLACKMAN : + + Interpretation Summary The ejection fraction is estimated to be 60-65%. The right ventricle is mildly dilated. There is mild tricuspid regurgitation. There is no pericardial effusion. Procedure: A two-dimensional transthoracic echocardiogram with color flow and Doppler was performed. The study quality was technically difficult. Comparison is made with the echocardiogram of 01/29/2023. The patient has a paced rhythm. The heart rate ranged between 70-72 bpm during the study. Left Ventricle: The left ventricle is normal in size. There is mild concentric left ventricular hypertrophy. The ejection fraction is estimated to be 60-65%. Left ventricular wall motion is normal. Right Ventricle: The right ventricle is mildly dilated. The right ventricular systolic function is normal. Atria: The left atrial size is normal. Right atrial size is normal. There is no Doppler evidence for an interatrial shunt. Mitral Valve: The mitral valve is normal in structure and function. There is mild mitral annular calcification. There is trace mitral regurgitation. Aortic Valve: The aortic valve is trileaflet. The aortic valve is slightly calcified. There is mild aortic valve sclerosis. There is no aortic valve stenosis. Tricuspid Valve: The tricuspid valve is normal in structure and function. There is mild tricuspid regurgitation. Right ventricular systolic pressure is estimated to be 23 mmHg plus the clinically estimated CVP which cannot be estimated on this exam. Pulmonic Valve: The pulmonic valve leaflets are thin and pliable; valve motion is normal. There is no pulmonic valvular regurgitation. Great Vessels: The aortic root is normal size. The dimensions of the ascending aorta are normal. The inferior vena cava was not well visualized. Pericardium/ Pleura There is no pericardial effusion. There is no pleural effusion. MMode/2D Measurements & Calculations LVIDd: 4.9 cm LVOT diam: 2.1 cm LVIDs: 3.0 cm Ao root diam: 3.5 cm FS: 39.3 % asc Aorta Diam: 3.6 cm IVSd: 1.0 cm Ao Arch Diam (Prox Trans): 3.1 cm LVPWd: 1.2 cm LV vega. diameter/BSA (cm/m^2): 2.3 LV sys. diameter/BSA (cm/m^2): 1.4 LA A2 area: 18.3 cm2 RA long axis: 4.1 cm LA A4 area: 12.0 cm2 RA area: 9.9 cm2 LA length (vol): 4.3 cm RA vol: 20.1 ml LA vol: 43.1 ml RA : 9.4 ml/m2 LA vol index: 20.1 ml/m2 RVD1 (basal): 4.1 cm TAPSE: 1.7 cm Doppler Measurements & Calculations Ao V2 max: 135.9 cm/sec LVOT Max Don: 92.0 cm/sec Ao V2 mean: 96.0 cm/sec LV V1 max P.4 mmHg Ao max P.4 mmHg LV V1 VTI: 17.9 cm Ao mean P.1 mmHg KARIN(I,D): 2.4 cm2 Ao V2 VTI: 26.3 cm KARIN(V,D): 2.4 cm2 sev ratio: 0.68 KARIN indexed to BSA (cm^2/m^2): 1.1 MV E max don: 91.1 cm/sec TR max don: 237.5 cm/sec MV A max don: 98.7 cm/sec TR max P.6 mmHg MV E/A: 0.92 PA V2 max: 86.7 cm/sec Med Peak E' Don: 6.9 cm/sec PA V2 mean: 66.0 cm/sec E/E' med: 13.3 PA mean P.9 mmHg Lat Peak E' Don: 5.5 cm/sec E/E' lat: 16.5 E/e' average: 14.9 MV dec time: 0.27 sec SV(LVOT): 62.7 ml Reading Physician:01:40 PM
[2023-10-24] MEDS: PANTOPRAZOLE 40 MG VIAL 20 MG IV (08:27)
--- NOTE | 2023-10-24 08:36 | P.HP_ITS ---
History of Present Illness History of Present Illness Date Patient Seen: 10/24/23 Time Patient Seen: 08:37 Chief complaint: L Abd px Narrative: 88-year-old male who was diagnosed with a glioblastoma in August and underwent surgery. He is currently residing in skilled care facility here in [facility] and developed sudden onset of left lower quadrant abdominal pain on the date of admission. He became diaphoretic and pain was quite intense. He felt like he was going to have a bowel movement and then the pain started. He was brought to the ER for evaluation and found to have elevated lactic acid and CT evidence of microperforation of the sigmoid colon. Surgery was consulted and felt that he needed inpatient admission with IV antibiotics and monitoring but was not a surgical candidate at this time due to often times perforation will seal on its own with IV antibiotics and bowel rest. He states that his pain continues. Patient states his blood pressure has been low in the 90s to 100s over 40s to 50s at the [facility] care facility He will be starting radiation therapy is hoping to get transferred to [facility] which will be closer to radiation therapy. He denies any chest pain or shortness of breath Patient can not feel his feet and therefore requires lift at the skilled care facility for transfers. Twelve point review of systems is otherwise negative PMH: 08/27 Glioblastoma DM-2, non-insulin dependent Hyperlipidemia Pacemaker Peripheral neuropathy Obesity Hypothyroidism P-Atrial fibrillation, chronic anticoagulation peripheral edema Lumbar spinal stenosis Depression Primary Hypertension Hypokalemia PSH: 08/2023 Glioblastoma Pacemaker FHX: negative for brain tumor cardiac disease rheumatologic disease HRB: previous smoker, quit in 1977 previous alcohol; none now SHx: has home in [place] but has been in skilled care facility since august when had surgery for glioblastoma supportive family and children [facility] Social History household members: spouse Smoking Status: Former smoker alcohol intake: former Meds Home Medications and Allergies Home Medications Medication Instructions Recorded Confirmed Type hydrochlorothiazide 25 mg tablet 25 mg PO QDAY ##0 01/18/17 History magnesium chloride 71.5 mg 1 ect PO QDAY ##0 01/18/17 History (magnesium chloride) tablet,delayed release (Slow-Mag) pravastatin 40 mg tablet 20 mg PO HS ##0 01/18/17 History Allergies Allergy/AdvReac Type Severity Reaction Status Date / Time INGREDIENT: NKA - NO KNOWN Allergy Unknown Uncoded 08/14/17 11:52 ALLERGIES NO KNOWN ALLERGIES - NKA Allergy Unknown Uncoded 08/14/17 11:52 From CRESTOR AdvReac Intermediate I Uncoded 08/14/17 11:52 COULDN'T WALK MUSCLE WEAKEN From LIPITOR AdvReac Intermediate MUSCLE Uncoded 08/14/17 11:52 WEAKNESS Exam Vital Signs (past 8 hours): - 10/24/23 00:40 10/24/23 01:10 10/24/23 01:24 Temperature 96.7 F L Pulse Rate 69 Respiratory Rate 26 H Blood Pressure 103/54 L 111/54 L 110/59 L Pulse Oximetry 94 Oxygen Flow Rate 0 10/24/23 01:24 10/24/23 01:30 10/24/23 01:31 Temperature Pulse Rate 71 69 Respiratory Rate 19 16 Blood Pressure 93/49 L Pulse Oximetry 94 94 Oxygen Flow Rate 0 10/24/23 01:31 10/24/23 01:45 10/24/23 01:45 Temperature Pulse Rate 69 69 Respiratory Rate 16 21 Blood Pressure 93/54 L Pulse Oximetry 95 95 Oxygen Flow Rate 10/24/23 02:00 10/24/23 02:00 10/24/23 02:15 Temperature Pulse Rate 69 71 Respiratory Rate 17 25 H Blood Pressure 93/51 L Pulse Oximetry 94 94 Oxygen Flow Rate 0 10/24/23 02:15 10/24/23 02:30 10/24/23 02:30 Temperature Pulse Rate 71 Respiratory Rate 18 Blood Pressure 105/51 L 106/53 L Pulse Oximetry 92 Oxygen Flow Rate 10/24/23 02:45 10/24/23 02:45 10/24/23 03:00 Temperature Pulse Rate 71 70 Respiratory Rate 15 15 Blood Pressure 99/52 L Pulse Oximetry 93 93 Oxygen Flow Rate 10/24/23 03:00 10/24/23 03:15 10/24/23 03:15 Temperature Pulse Rate 69 Respiratory Rate 14 Blood Pressure 109/50 L 93/51 L Pulse Oximetry 94 Oxygen Flow Rate 0 10/24/23 03:30 10/24/23 03:30 10/24/23 03:45 Temperature Pulse Rate 69 Respiratory Rate 14 Blood Pressure 89/48 L 85/49 L Pulse Oximetry 94 Oxygen Flow Rate 10/24/23 03:45 10/24/23 04:00 10/24/23 04:00 Temperature 97.2 F L Pulse Rate 69 69 Respiratory Rate 16 16 Blood Pressure 88/50 L Pulse Oximetry 94 95 Oxygen Flow Rate 0 10/24/23 04:15 10/24/23 04:15 10/24/23 04:30 Temperature Pulse Rate 70 Respiratory Rate 18 Blood Pressure 104/51 L 104/54 L Pulse Oximetry 95 Oxygen Flow Rate 10/24/23 04:30 10/24/23 04:45 10/24/23 04:45 Temperature Pulse Rate 69 69 Respiratory Rate 17 16 Blood Pressure 97/52 L Pulse Oximetry 94 94 Oxygen Flow Rate 0 10/24/23 05:00 10/24/23 05:00 10/24/23 05:15 Temperature Pulse Rate 69 Respiratory Rate 16 Blood Pressure 98/51 L 92/54 L Pulse Oximetry 94 Oxygen Flow Rate 10/24/23 05:15 10/24/23 05:30 10/24/23 05:30 Temperature Pulse Rate 69 69 Respiratory Rate 15 16 Blood Pressure 96/54 L Pulse Oximetry 94 94 Oxygen Flow Rate 0 10/24/23 05:45 10/24/23 05:45 10/24/23 06:00 Temperature Pulse Rate 69 Respiratory Rate 16 Blood Pressure 84/48 L 98/52 L Pulse Oximetry 94 Oxygen Flow Rate 10/24/23 06:00 Temperature Pulse Rate 69 Respiratory Rate 16 Blood Pressure Pulse Oximetry 94 Oxygen Flow Rate 0 Oxygen Delivery Method Room Air Oxygen Flow Rate 0 Narrative Exam Narrative: Alert and oriented x3. Excellent historian Vital signs are stable. Blood pressure is 100/60 but this is what it has been since he had surgery in August. HEENT is unremarkable other than patient is edentulous Neck: Supple without adenopathy Chest: Clear to auscultation without wheezes rhonchi or crackles Cor: Irregularly irregular rhythm at a well-controlled rate Abdomen: Positive bowel sounds though slightly diminished, obese, diffusely tender mostly left lower quadrant left upper quadrant with rebound tenderness Extremities show no edema which previously he has always had 3+ pitting edema. Patient has cold feet with no palpable pulses. There is no ulcerations. Neurologic exam shows full range of motion of upper and lower extremities and no focal deficits. Strength appears intact and symmetric grossly Objective Labs 10/24/23 04:15 10/24/23 04:15 Labs: Laboratory Results - last 24 hr 10/23/23 10/23/23 10/24/23 16:54 20:51 01:12 WBC 6.9 RBC 4.49 L Hgb 14.0 Hct 41.1 MCV 91.6 MCH 31.3 MCHC 34.1 RDW 17.5 H Plt Count 216 Neut % (Auto) 76.0 H Lymph % (Auto) 21.4 L [place] % (Auto) 1.6 L Eos % (Auto) 0.1 L Baso % (Auto) 0.9 Neut # (Auto) 5200 Lymph # (Auto) 1500 [place] # (Auto) 100 Eos # (Auto) 0 Baso # (Auto) 100 Sodium 136 L Potassium 4.5 Chloride 102 Carbon Dioxide 29 BUN 38 H Creatinine 1.00 Estimated GFR > 60 BUN/Creatinine Ratio 38.0 H Glucose 206 H Lactate 3.5 H 2.6 H Calcium 9.0 Total Bilirubin 0.8 AST 27 ALT 38 Alkaline Phosphatase 53 Lactate Dehydrogenase Total Protein 6.3 Albumin 3.4 L Globulin 2.9 Albumin/Globulin Ratio 1.2 Lipase 93 Nasal Screen MRSA (PCR) Detected H 10/24/23 04:15 WBC 9.1 RBC 4.27 L Hgb 13.4 L Hct 39.2 L MCV 91.9 MCH 31.4 MCHC 34.2 RDW 17.3 H Plt Count 221 Neut % (Auto) 73.7 Lymph % (Auto) 24.1 L [place] % (Auto) 1.9 L Eos % (Auto) 0.1 L Baso % (Auto) 0.2 Neut # (Auto) 6700 Lymph # (Auto) 2200 [place] # (Auto) 200 Eos # (Auto) 0 Baso # (Auto) 0 Sodium 137 Potassium 4.1 Chloride 107 Carbon Dioxide 27 BUN 37 H Creatinine 1.10 Estimated GFR > 60 BUN/Creatinine Ratio 33.6 H Glucose 103 D Lactate Calcium 8.2 L Total Bilirubin AST ALT Alkaline Phosphatase Lactate Dehydrogenase 260 H Total Protein Albumin Globulin Albumin/Globulin Ratio Lipase Nasal Screen MRSA (PCR) Assessment & Plan Assessment & Plan narrative: 88-year-old male who presents the ER for evaluation of left lower quadrant abdominal pain. Patient found to have micro perforation and surgery deemed not surgical treatment at this time. Patient admitted for observation and treatment with IV antibiotics and monitoring Assessment 1. Left lower quadrant abdominal pain due to diverticulitis with microperforation Plan: Continue per surgery. Continue with IV Zosyn. Trend for fever, hypotension, leukocytosis. Pain control Assessment 2. Hypotension. Certainly could be sepsis due to micro perforation diverticulitis. I suspect that this is generally his blood pressure runs low normal. Patient is a known cardiac patient. Plan: Will do an echo. Will wean off Levophed as were able to. Will continue to treat infection with IV Zosyn. Blood cultures pending urine culture pending Assessment 3. Glioblastoma. Patient recently diagnosed and had surgical intervention. He is managed at [facility]. He has currently in a long term due to deconditioning. Assessment 4. Type 2 diabetes Plan: Will monitor blood sugars and treat as indicated. Will do low-dose sliding scale insulin Assessment 5. Peripheral neuropathy chronic affecting mobility Plan: Will continue with support Assessment 6. Peripheral vascular disease Plan: Will check Doppler pulses and continue to monitor Assessment 7. Depression Plan: continue outpt meds Assessment 8. Anemia Plan: will follow. Suspect anemia of chronic disease Assessment 9. elevated lactate but improving Plan recheck tomorrow Assessment 10. DVT prophylaxis Plan: lovenox Assessment 11. hypothyroidism Plan: continue outpt treatment 77 minutes spent with discussion with physicians, nursing, reviewing chart in hospital and clinic and formulating a plan and documentation. Code Status is Full code
--- NOTE | 2023-10-24 10:38 | DI.RAD.S_ITS ---
PROCEDURE: XR CHEST FOR PICC 1V INDICATIONS: PICC Placement COMPARISON: None. FINDINGS: PICC was placed by the intravenous therapy team from the right side. Fluoroscopic spot film demonstrates the tip of PICC projecting to the area of right subclavian vein IMPRESSION: Tip of PICC projects to the area of right subclavian vein. Dictated by: Violetta Scruggs MD, PhD on 10/24/2023 at 10:57 Approved by: Violetta Scruggs MD, PhD on 10/24/2023 at 10:58
[2023-10-24] MEDS: KETOROLAC 30 MG/ML VIAL 15 MG IV (10:56)
[2023-10-24] MEDS: NOREPINEPHRINE BITARTRATE/D5W 4 MG/250 ML PLAST..BAG 28.576 MG IV (11:12)
--- NOTE | 2023-10-24 13:45 | PM.CN ---
History of Present Illness Consult details Date Patient Seen: 10/24/23 Time Patient Seen: 13:45 Chief complaint: L Abd px Reason for consult: micro perforation of diverticulitis Requesting provider: Yoly Pereira Narrative: 88yo s/p treatment of glioblastoma in August. Now with microperforated diverticulitis. Improving. Pain only to palpation and movement. His is hungry. Meds Home Medications and Allergies Home Medications Medication Instructions Recorded Confirmed Type hydrochlorothiazide 25 mg tablet 25 mg PO QDAY ##0 01/18/17 History magnesium chloride 71.5 mg 1 ect PO QDAY ##0 01/18/17 History (magnesium chloride) tablet,delayed release (Slow-Mag) pravastatin 40 mg tablet 20 mg PO HS ##0 01/18/17 History Allergies Allergy/AdvReac Type Severity Reaction Status Date / Time INGREDIENT: NKA - NO KNOWN Allergy Unknown Uncoded 08/14/17 11:52 ALLERGIES NO KNOWN ALLERGIES - NKA Allergy Unknown Uncoded 08/14/17 11:52 From CRESTOR AdvReac Intermediate I Uncoded 08/14/17 11:52 COULDN'T WALK MUSCLE WEAKEN From LIPITOR AdvReac Intermediate MUSCLE Uncoded 08/14/17 11:52 WEAKNESS Review of Systems Review of Systems Narrative: mild confusion from time to time. ROS: Yes All systems reviewed with the patient and are negative except as otherwise documented Exam Vital Signs (past 8 hours): - 10/24/23 06:00 10/24/23 06:00 10/24/23 06:15 Temperature Pulse Rate 69 Respiratory Rate 16 Blood Pressure 98/52 L 109/54 L Pulse Oximetry 94 Oxygen Delivery Method Oxygen Flow Rate 0 10/24/23 06:15 10/24/23 06:30 10/24/23 06:30 Temperature Pulse Rate 72 69 Respiratory Rate 20 16 Blood Pressure 100/54 L Pulse Oximetry 94 94 Oxygen Delivery Method Oxygen Flow Rate 10/24/23 06:45 10/24/23 06:45 10/24/23 07:00 Temperature Pulse Rate 69 Respiratory Rate 17 Blood Pressure 104/55 L 104/56 L Pulse Oximetry 94 Oxygen Delivery Method Oxygen Flow Rate 10/24/23 07:00 10/24/23 07:00 10/24/23 07:15 Temperature Pulse Rate 69 Respiratory Rate 17 Blood Pressure 105/53 L Pulse Oximetry 95 Oxygen Delivery Method Room Air Oxygen Flow Rate 10/24/23 07:15 10/24/23 07:30 10/24/23 07:30 Temperature Pulse Rate 69 69 Respiratory Rate 16 16 Blood Pressure 99/54 L Pulse Oximetry 94 95 Oxygen Delivery Method Oxygen Flow Rate 10/24/23 07:45 10/24/23 07:45 10/24/23 08:00 Temperature 98.7 F Pulse Rate 70 Respiratory Rate 17 Blood Pressure 103/59 L Pulse Oximetry 95 Oxygen Delivery Method Oxygen Flow Rate 10/24/23 08:00 10/24/23 08:01 10/24/23 08:01 Temperature Pulse Rate 75 78 Respiratory Rate 24 25 H Blood Pressure 142/76 H Pulse Oximetry 94 92 Oxygen Delivery Method Oxygen Flow Rate 10/24/23 08:15 10/24/23 08:15 10/24/23 08:30 Temperature Pulse Rate 69 69 Respiratory Rate 17 19 Blood Pressure 108/53 L Pulse Oximetry 94 95 Oxygen Delivery Method Oxygen Flow Rate 10/24/23 08:30 10/24/23 08:45 10/24/23 08:45 Temperature Pulse Rate 71 Respiratory Rate 22 Blood Pressure 100/50 L 101/51 L Pulse Oximetry 95 Oxygen Delivery Method Oxygen Flow Rate 10/24/23 09:00 10/24/23 09:00 10/24/23 09:15 Temperature Pulse Rate 72 Respiratory Rate 20 Blood Pressure 105/54 L 68/36 L Pulse Oximetry 94 Oxygen Delivery Method Oxygen Flow Rate 10/24/23 09:15 10/24/23 09:30 10/24/23 09:30 Temperature Pulse Rate 69 69 Respiratory Rate 21 19 Blood Pressure 117/53 L Pulse Oximetry 94 95 Oxygen Delivery Method Oxygen Flow Rate 10/24/23 09:45 10/24/23 09:45 10/24/23 10:00 Temperature Pulse Rate 69 69 Respiratory Rate 17 17 Blood Pressure 110/57 L Pulse Oximetry 94 94 Oxygen Delivery Method Oxygen Flow Rate 10/24/23 10:00 10/24/23 10:15 10/24/23 10:15 Temperature Pulse Rate 74 Respiratory Rate 23 Blood Pressure 114/56 L 142/62 H Pulse Oximetry 95 Oxygen Delivery Method Oxygen Flow Rate 10/24/23 10:30 10/24/23 10:30 10/24/23 10:45 Temperature Pulse Rate 69 Respiratory Rate 21 Blood Pressure 105/44 L 108/66 Pulse Oximetry 95 Oxygen Delivery Method Oxygen Flow Rate 10/24/23 10:45 10/24/23 11:00 10/24/23 11:00 Temperature Pulse Rate 71 70 Respiratory Rate 27 H 24 Blood Pressure 117/63 Pulse Oximetry 95 95 Oxygen Delivery Method Oxygen Flow Rate 10/24/23 11:15 10/24/23 11:15 10/24/23 11:30 Temperature Pulse Rate 69 70 Respiratory Rate 20 20 Blood Pressure 99/53 L Pulse Oximetry 96 95 Oxygen Delivery Method Oxygen Flow Rate 10/24/23 11:30 10/24/23 11:45 10/24/23 11:45 Temperature Pulse Rate 69 Respiratory Rate 21 Blood Pressure 105/58 L 101/49 L Pulse Oximetry 95 Oxygen Delivery Method Oxygen Flow Rate 10/24/23 12:00 10/24/23 12:00 10/24/23 12:00 Temperature 98.8 F Pulse Rate 69 Respiratory Rate 19 Blood Pressure 106/54 L Pulse Oximetry 95 Oxygen Delivery Method Oxygen Flow Rate 10/24/23 12:15 10/24/23 12:15 Temperature Pulse Rate 69 Respiratory Rate 17 Blood Pressure 100/53 L Pulse Oximetry 95 Oxygen Delivery Method Oxygen Flow Rate Oxygen Delivery Method Room Air Oxygen Flow Rate 0 Const General: cooperative and comfortable Nutritional Appearance: other (trunkal obesity) Orientation: alert, awake and oriented x3 [facility] Head: normal to inspection and normocephalic Eyes Sclera: sclerae normal Neck Neck: No no meningeal signs and trachea midline Resp Effort & Inspection: normal respiratory effort and able to speak in complete sentences Cardio Rate: regular rate Rhythm: regular rhythm GI Inspection: obesity Palpation: soft and tender (focal right sided tenderness, no acute abdomen.) Neuro General: patient alert, patient awake and patient oriented x3 Psych Appearance: grossly normal Mental Status: mental status grossly normal Affect: normal affect Judgment: judgment good Objective Labs 10/24/23 04:15 10/24/23 04:15 Labs: Laboratory Results - last 24 hr 10/23/23 10/23/23 10/24/23 16:54 20:51 01:12 WBC 6.9 RBC 4.49 L Hgb 14.0 Hct 41.1 MCV 91.6 MCH 31.3 MCHC 34.1 RDW 17.5 H Plt Count 216 Neut % (Auto) 76.0 H Lymph % (Auto) 21.4 L [place] % (Auto) 1.6 L Eos % (Auto) 0.1 L Baso % (Auto) 0.9 Neut # (Auto) 5200 Lymph # (Auto) 1500 [place] # (Auto) 100 Eos # (Auto) 0 Baso # (Auto) 100 Sodium 136 L Potassium 4.5 Chloride 102 Carbon Dioxide 29 BUN 38 H Creatinine 1.00 Estimated GFR > 60 BUN/Creatinine Ratio 38.0 H Glucose 206 H Lactate 3.5 H 2.6 H Calcium 9.0 Total Bilirubin 0.8 AST 27 ALT 38 Alkaline Phosphatase 53 Lactate Dehydrogenase Total Protein 6.3 Albumin 3.4 L Globulin 2.9 Albumin/Globulin Ratio 1.2 Lipase 93 Nasal Screen MRSA (PCR) Detected H 10/24/23 04:15 WBC 9.1 RBC 4.27 L Hgb 13.4 L Hct 39.2 L MCV 91.9 MCH 31.4 MCHC 34.2 RDW 17.3 H Plt Count 221 Neut % (Auto) 73.7 Lymph % (Auto) 24.1 L [place] % (Auto) 1.9 L Eos % (Auto) 0.1 L Baso % (Auto) 0.2 Neut # (Auto) 6700 Lymph # (Auto) 2200 [place] # (Auto) 200 Eos # (Auto) 0 Baso # (Auto) 0 Sodium 137 Potassium 4.1 Chloride 107 Carbon Dioxide 27 BUN 37 H Creatinine 1.10 Estimated GFR > 60 BUN/Creatinine Ratio 33.6 H Glucose 103 D Lactate Calcium 8.2 L Total Bilirubin AST ALT Alkaline Phosphatase Lactate Dehydrogenase 260 H Total Protein Albumin Globulin Albumin/Globulin Ratio Lipase Nasal Screen MRSA (PCR) [facility] Tobacco & Substance Use Smoking Status: Former smoker alcohol intake: former Assessment & Plan Assessment & Plan narrative: Perforated diverticulitis, contained Plan: general diet, continue IV antibiotics. Time Spent With Patient Time with patient: less than 30 minutes
[2023-10-24] MEDS: LIDOCAINE 2% (GLYDO) 6 ML GEL TOP (14:16)
[2023-10-24 14:58] LABS: Appearance Urine UA CLEAR; Bilirubin Urine UA NEGATIVE (NEGATIVE); Color Urine UA YELLOW; Glucose Urine UA NEGATIVE (Negative); Ketones Urine UA NEGATIVE (NEGATIVE); Leukocyte Esterase Urine UA NEGATIVE (NEGATIVE); Nitrite Urine UA NEGATIVE (Negative); Occult Blood Urine UA NEGATIVE (Negative); Protein Urine UA NEGATIVE (Negative); pH Urine UA 5.5 (4.5-8.0)
[2023-10-24 15:06] LABS: Urine Volume 10mL (spun)
[2023-10-24 15:07] LABS: Bacteria Urine None Seen; Culture Indicated Urine Cult Not Indicated; RBC Urine None Seen (0-5/HPF); Squamous Epithelial Cell Urine None Seen (0-5/HPF); WBC Urine None Seen (0-5/HPF)
--- NOTE | 2023-10-24 15:42 | CM.DANOTE ---
Initial DCP Assessment Visit Note Reviewed EMR and team rounds for status updates. Met with pt and his dtr at bedside to introduce self and role, pt was found to be alert/oriented and able to participated in discussion re: his anticipated d/c needs and preferences. Pt was admitted from [facility], however at baseline he lives at home with his . Dtr, Theresa, also lives in [place] and is their primary family contact/coordinator. Payor: Medicare PCP: Dr. Pereira Pt is a 88 year-old M who presented via EMS from [facility] for c/o sudden onset severe abdominal pain that worsened through the day yesterday. He was also recently diagnosed with a glioblastoma, has established with [facility], but has not completed the mapping yet. Family prefer for pt to d/c to [facility] instead of returning to [facility], as he obtained buttock wounds and had a terrible experience while there. Pt has already used his initial 20-days of Medicare rehab days, but they have not needed to pay the 20% for days 21-thereafter because they appealed and won. CM will need to start a referral for [facility], he will need BLS transport as medically necessary, and will also need daily BLS transportation to [facility] for radiation for however long they determine he needs it. CPR INSTRUCTOR will continue to follow and assist with transition to SNF rehab and any other evolving needs during this admission stay. Discharge Planning/Care Management CM Discharge Assessment Start: 10/24/23 15:35 Freq: Status: Active Protocol: Document 10/24/23 15:35 DPL (Rec: 10/24/23 15:42 DPL [id number]) Discharge Planning Assessment Assigned Teacher BARRIE Miramontes Advance Directives? Yes Advance Directives on File No History Provided By Patient,Family Member,Medical Record Has Patient been admitted in last 30 No days? Prior Living Arrangements House Household Members spouse Type of transporation used prior to Relies on Others admit Comment Pt is not able to walk. Facility Name Admitted From: [facility] Willing to Return to Facility? Yes: Pt wants to d/c to [facility]. Will start referral. Independent with ADL's No Is patient alert and oriented? Yes Needs Assistance With Bathing,Grooming,Meal Prep, Managing Medications,Home Chores / Shopping Caregiver for Another No Community Services used prior to Physical Therapy admission: DME Already Rented / Owned Bath Bench,Elevated Toilet Seat,FWW / Walker Comment Pt is requesting assistance with getting a hospital bed. This will need to be done OP as he is going to d/c back to a SNF rehab again. Patient/Family Preference Intermediate Facility Barriers to Discharge No Discharge Plan Home Community Services Physical Therapy Transportation Arrangement Facility Referrals Initiated Intermediate If patient plan is home with home health No : Has signed face to face form been completed? Inpatient Status as of 10/24/23 Medicare choice list reviewed on patient,family electronic tablet with SNF/HH Preference [facility] Has Agency SNF been contacted No Whiteboard Updated in Patient Room with Yes name and ext. # of Teacher Review Status In Process Please Provide Date Initial DC 10/24/23 Assessment Was Performed
[2023-10-24 19:10] LABS: INR 2.4 (0.9-1.3); Prothrombin Time 27.4 SECONDS (9.4-12.5)
[2023-10-24] MEDS: NOREPINEPHRINE BITARTRATE/D5W 4 MG/250 ML PLAST..BAG 21.432 MG IV (20:08)
[2023-10-24] MEDS: SERTRALINE 50 MG TABLET 25 MG PO (20:21)
[2023-10-24] MEDS: AMIODARONE 200 MG TABLET 100 MG PO (20:22)
[2023-10-24] MEDS: WARFARIN 5 MG TABLET PO (20:23)
[2023-10-24] MEDS: LEVOTHYROXINE 100 MCG TABLET PO (20:23)
[2023-10-25] VITALS (56 sets, daily range): BP systolic 73–136; BP diastolic 35–98; PULSE 69–83; RESP 14–32; TEMP 36.1–36.5; O2SAT 84–97
[2023-10-25] MEDS: KETOROLAC 30 MG/ML VIAL 15 MG IV (01:14)
[2023-10-25] MEDS: PIPERACILLIN/TAZO 4.5 GM in SODIUM CHLORIDE 0.9% 100 ML IV (01:15)
[2023-10-25] MEDS: HYDROMORPHONE 0.5 MG INJ IV (04:26)
[2023-10-25 05:15] LABS: Lactate (Lactic Acid) 2.3 mmol/L (0.7-2.1); Lactate Dehydrogenase 218 U/L (120-246)
[2023-10-25 05:18] LABS: Alanine Aminotransferase 32 IU/L (<50); Albumin 2.5 g/dL (3.5-5.0); Albumin Globulin Ratio 0.9 (1.0-2.8); Alkaline Phosphatase 50 U/L (38-126); Aspartate Aminotransferase 23 IU/L (17-59); BUN Creatinine Ratio 27.4 (6-22); Bilirubin Total 1.5 mg/dL (0.2-1.3); Blood Urea Nitrogen 32 mg/dL (9-20); Calcium 8.2 mg/dL (8.4-10.2); Carbon Dioxide 22 mmol/L (22-32); Chloride 111 mmol/L (98-107); Estimated Glomerular Filt Rate > 60 mL/min (>60); Globulin 2.7 g/dL (1.7-4.1); Glucose 160 mg/dL (80-110); HEMOLYSIS < 15 (0-50); Potassium 3.7 mmol/L (3.4-5.1); Sodium 139 mmol/L (137-145); Total Protein 5.2 g/dL (6.3-8.2)
[2023-10-25 05:20] LABS: Hematocrit 35.8 % (41-53); Hemoglobin 12.1 g/dL (13.5-17.5); Mean Corpuscular HGB Conc 33.8 % (30-36); Mean Corpuscular Hemoglobin 31.3 PG (26-34); Mean Corpuscular Volume 92.6 fL (80-100); Platelet Count 184 X10^3/uL (150-400); Red Blood Cell Count 3.87 X10^6/uL (4.5-5.9); Red Cell Distribution Width 17.8 % (11.6-14.8); White Blood Cell Count 6.6 X10^3/uL (4.5-11.0)
[2023-10-25 05:21] LABS: Add Manual Diff / Slide Review YES
[2023-10-25 05:32] LABS: Anisocytosis 1+; Neutrophils Absolute Manual 4950 /uL (3000-5900); Total Cells Counted 100
[2023-10-25] MEDS: LEVOTHYROXINE 100 MCG TABLET PO (05:47)
[2023-10-25 05:55] LABS: TSH w/ Reflex to FT4 0.68 uIU/mL (0.47-4.68)
[2023-10-25 06:32] LABS: Reflexed Lactate in 2 Hours Y
[2023-10-25] MEDS: SODIUM CHLORIDE 0.9% 1,000 ML 135 ML IV ×2 (07:13→14:52)
[2023-10-25 07:14] LABS: Lactate 2HR (Lactic Acid Rflx) 2.1 mmol/L (0.7-2.1)
[2023-10-25] MEDS: SERTRALINE 50 MG TABLET 25 MG PO (08:12)
[2023-10-25] MEDS: AMIODARONE 200 MG TABLET 100 MG PO (08:13)
[2023-10-25] MEDS: PANTOPRAZOLE 40 MG VIAL 20 MG IV (08:13)
--- NOTE | 2023-10-25 08:24 | P.PN_ITS ---
Subjective Subjective Date Patient Seen: 10/25/23 Time Patient Seen: 08:25 Interval history: Patient seen in [facility] for follow-up of abdominal pain felt to be secondary to perforation diverticulitis contained hypotension glioblastoma. Patient overall as long as he holds still feeling well. Does not feel like his pain is any better than it was. Has no other significant changes. No other complaints. No nausea or vomiting. No diarrhea. Pain is quite severe. Currently has both Toradol and Dilaudid available. Otherwise has no new complaints or problems today. Still on pressure support today. But no other changes. Exam Vital Signs (past 8 hours): - 10/25/23 01:00 10/25/23 01:00 10/25/23 02:00 Temperature Pulse Rate 75 73 Respiratory Rate 23 21 Blood Pressure 103/52 L Pulse Oximetry 94 94 Oxygen Delivery Method Oxygen Flow Rate 0 10/25/23 02:00 10/25/23 03:00 10/25/23 03:01 Temperature Pulse Rate 70 Respiratory Rate 21 Blood Pressure 90/48 L 87/46 L Pulse Oximetry 93 Oxygen Delivery Method Oxygen Flow Rate 0 10/25/23 03:01 10/25/23 03:46 10/25/23 03:46 Temperature Pulse Rate 72 70 Respiratory Rate 20 18 Blood Pressure 98/52 L Pulse Oximetry 92 93 Oxygen Delivery Method Oxygen Flow Rate 10/25/23 04:00 10/25/23 04:00 10/25/23 05:00 Temperature 97.0 F L Pulse Rate 69 Respiratory Rate 18 Blood Pressure 98/51 L 110/55 L Pulse Oximetry 94 Oxygen Delivery Method Oxygen Flow Rate 0 10/25/23 05:00 10/25/23 06:00 10/25/23 06:00 Temperature Pulse Rate 71 70 Respiratory Rate 16 16 Blood Pressure 107/52 L Pulse Oximetry 93 94 Oxygen Delivery Method Oxygen Flow Rate 0 0 10/25/23 07:00 Temperature Pulse Rate Respiratory Rate Blood Pressure Pulse Oximetry Oxygen Delivery Method Room Air Oxygen Flow Rate Oxygen Delivery Method Room Air Oxygen Flow Rate 0 Narrative Exam Narrative: Alert elderly male lying on his left side in no acute distress. Mucous membranes moist neck supple without adenopathy lungs are clear heart is regular rate and rhythm abdomen is obese soft positive bowel sounds severe pain actually right lower quadrant no rebound guarding. Extremities unremarkable Objective Labs 10/25/23 04:49 10/25/23 04:49 Labs: Laboratory Results - last 24 hr 10/24/23 10/24/23 10/25/23 13:55 18:52 04:49 WBC 6.6 RBC 3.87 L Hgb 12.1 L Hct 35.8 L MCV 92.6 MCH 31.3 MCHC 33.8 RDW 17.8 H Plt Count 184 Neut % (Auto) Not Reportable Lymph % (Auto) Not Reportable [place] % (Auto) Not Reportable Eos % (Auto) Not Reportable Baso % (Auto) Not Reportable Lymph # (Auto) Not Reportable [place] # (Auto) Not Reportable Baso # (Auto) Not Reportable Total Counted 100 Seg Neutrophils % 52.0 Band Neutrophils % 23.0 H Lymphocytes % (Manual) 23.0 L Monocytes % (Manual) 1.0 L Metamyelocytes % 1.0 H Neutrophils # (Manual) 4950 RBC Morphology See below Anisocytosis 1+ H PT 27.4 H INR 2.4 H Sodium 139 Potassium 3.7 Chloride 111 H Carbon Dioxide 22 BUN 32 H Creatinine 1.17 Estimated GFR > 60 BUN/Creatinine Ratio 27.4 H Glucose 160 H Lactate 2.3 H Calcium 8.2 L Total Bilirubin 1.5 H AST 23 ALT 32 Alkaline Phosphatase 50 Lactate Dehydrogenase 218 Total Protein 5.2 L Albumin 2.5 L Globulin 2.7 Albumin/Globulin Ratio 0.9 L TSH 0.68 Urine Color Yellow Urine Appearance Clear Urine pH 5.5 Ur Specific [place] 1.010 Urine Protein Negative Urine Glucose (UA) Negative Urine Ketones Negative Urine Occult Blood Negative Urine Nitrate Negative Urine Bilirubin Negative Urine Urobilinogen 1.0 Ur Leukocyte Esterase Negative Urine RBC None seen Urine WBC None seen Ur Squamous Epith Cells None seen Urine Bacteria None seen Ur Culture Indicated? Cult not indicated Vol Urine Centrifuged 10ml (spun) 10/25/23 06:50 WBC RBC Hgb Hct MCV MCH MCHC RDW Plt Count Neut % (Auto) Lymph % (Auto) [place] % (Auto) Eos % (Auto) Baso % (Auto) Lymph # (Auto) [place] # (Auto) Baso # (Auto) Total Counted Seg Neutrophils % Band Neutrophils % Lymphocytes % (Manual) Monocytes % (Manual) Metamyelocytes % Neutrophils # (Manual) RBC Morphology Anisocytosis PT INR Sodium Potassium Chloride Carbon Dioxide BUN Creatinine Estimated GFR BUN/Creatinine Ratio Glucose Lactate 2.1 Calcium Total Bilirubin AST ALT Alkaline Phosphatase Lactate Dehydrogenase Total Protein Albumin Globulin Albumin/Globulin Ratio TSH Urine Color Urine Appearance Urine pH Ur Specific [place] Urine Protein Urine Glucose (UA) Urine Ketones Urine Occult Blood Urine Nitrate Urine Bilirubin Urine Urobilinogen Ur Leukocyte Esterase Urine RBC Urine WBC Ur Squamous Epith Cells Urine Bacteria Ur Culture Indicated? Vol Urine Centrifuged [facility] Social History household members: spouse Smoking Status: Former smoker alcohol intake: former Assessment & Plan Assessment & Plan narrative: Abdominal pain/diverticulitis with perforation which appears to be contained. Appreciate surgeon's input. Will continue to follow with them pretty severe pain. Patient has been getting Toradol with Dilaudid. Due to his anticoagulation will discontinue his Toradol for now. He is written for every 3 hour Dilaudid IV which we will continue and hopefully that will cover. He has been getting it a little less frequently in hopefully he can have that a little more which we discussed. Due to the persistence of pain will not consider going off his IV antibiotics until least that is somewhat improved. Which does not appear to be any change from admission. White count is normal. Other signs seem to be okay although he is still hypotensive which we are assuming is secondary to this infection. If continued pain without improvement over the next 24-48 hours or if worsening will need repeat CT scan to evaluate. And discussion with surgeon but I think at this point we can continue on the current course. Will see how things go. He is only really been 24 hours on antibiotics. Seems to be tolerating p.o.. Hypotension. Certainly severe apparently he usually runs in the 90s but he has been going into the 70s. Will continue to treat with Levophed as needed but hopefully will be off that today. No evidence of other severe sepsis parameters but will need to watch and see how things go. Continue current treatment. Echo shows normal left ventricular function. Will continue IV antibiotics which we assume is the cause. Glioblastoma. Stable. Has been persistently deconditioned. As he is feeling better will need to get PT involved. Anticoagulation. Till adequate. Will continue but discontinue Toradol. Recheck a.m. to make sure not getting worse Type 2 diabetes continue blood sugars actually pretty stable. Continue sliding scale. Peripheral neuropathy chronic mobility issues. Will continue support. Peripheral vascular disease. Stable. No issues at this time. Depression. Continue outpatient meds. Anemia has been present with chronic disease as diagnosis will follow. Elevated lactate normalized. Will follow. DVT prophylaxis on Coumadin GI prophylaxis not needed at this time. Code status full. Disposition patient is going to be here for awhile given his continued significant pain and hypotension. Will continue to follow.
[2023-10-25] MEDS: HYDROMORPHONE 1 MG INJ IV ×2 (09:03→11:56)
[2023-10-25] MEDS: PIPERACILLIN/TAZO 3.375 GM in SODIUM CHLORIDE 0.9% 100 ML IV (11:20)
[2023-10-25 11:30] LABS: Prothrombin Time 23.6 SECONDS (9.4-12.5)
--- NOTE | 2023-10-25 12:30 | OT.IP.EVAL ---
Current Diagnoses Diverticulitis of intestine, part unspecified, with perforation and abscess without bleeding (10/24/23) Occupational Therapy Inpatient Evaluation/Re-Eval M1 PT/OT-IP Prior Functional Status Start: 10/25/23 16:09 Freq: NEEDED Status: Active Protocol: Document 10/25/23 16:09 [facility] (Rec: 10/25/23 16:26 [facility] [id number]) Medical Review Prior Functional Status Communication Independent Mobility and Gait Pt states only did transfers at SNF with 2 person assist or use of Hayley lift. Activities of Daily Living and IADL's Pt states able to do grooming and self-care needs after set- up. Prior Functional Level (Other details) Pt has been at [facility] since having surgery in August for glioblastoma. Social History Household Members spouse Living Arrangements Skilled Nurse Facility M2 OT-IP Current Condition Start: 10/25/23 16:09 Freq: Status: Active Protocol: Document 10/25/23 16:09 [facility] (Rec: 10/25/23 16:26 [facility] [id number]) Occupational Therapy Current Condition Current Condition Evaluation Date 10/25/23 Treatment Diagnosis Abdomimnal pain, preforated diverticulitis Diagnosis Onset Date 10/24/23 M3 OT- IP Subjective and Pain Start: 10/25/23 16:09 Freq: Status: Active Protocol: Document 10/25/23 16:09 [facility] (Rec: 10/25/23 16:26 [facility] [id number]) OT- Subjective Occupational Therapy Visit Type Type Initial Evaluation Visit Start Time 12:05 Visit Stop Time 12:30 Occupational Therapy Visit Comments Patient Comments Pt very tired and in pain and not wanting to more at this time but agreed to try doing OT eval. OT Pain Assessment Pain When Pain Assessed At Rest Pain Present Pain Present Pain Reported Location Abdomen Pain Behaviors Facial Grimacing,[place] M4 OT- IP ADL's Start: 10/25/23 16:09 Freq: Status: Active Protocol: Document 10/25/23 16:09 [facility] (Rec: 10/25/23 16:26 [facility] [id number]) OT [id number] Comments OT Self-Feeding Comments Not at meal time. OT ADL-Grooming Comments OT Grooming Comments Pt too tired and in pain and not able to participate at this time. OT ADL-Oral Care Comments Oral Care Comments Not performed. OT ADL-Dressing Comments OT Dressing Comments Per nursing two person assist to help clean him up at this time. OT ADL-Toileting Comments OT Toileting Comments Not performed. OT ADL-Bathing Bathing Type Bathing Type Sponge Bath Comments OT Bathing Comments Sponge bath more appropriate at this time. M5 OT- IP IADL's Start: 10/25/23 16:09 Freq: Status: Active Protocol: Document 10/25/23 16:09 [facility] (Rec: 10/25/23 16:26 [facility] [id number]) OT-Instrumental Activities of Daily Living Home Safety Awareness Home Safety Comments Pt is groggy and in pain and having difficulty to participate at this time. Medication Management Medication Management Caregiver Administers Money Management Money Management Caregiver Provides Assistance Meal Preparation Meal Preparation Caregiver Provides Assist Chief Controller Chief Controller Caregiver Provides Assist M6 OT- IP Functional Cognition Start: 10/25/23 16:09 Freq: Status: Active Protocol: Document 10/25/23 16:09 [facility] (Rec: 10/25/23 16:26 [facility] [id number]) Cognitive Factors Limiting Selfcare Function Cognitive Ability Level of Alertness Drowsy Patient Orientation Name Attention Span Ability Capable of Focused Attention, Unable to Sustain Attention Ability to Follow Commands Able to Follow One Step Commands with Increased Time, Able to Follow One Step Commands with Repetition Cognitive Comments Cognitive Assessment Comments Pt is pain and drowsy and able to follow commands with increased time for OT assessments. OT- Vision and Hearing OT- Vision Assessment Visual Acuity Glasses For Reading Visual Attentiveness WFL Occular Pursuits WFL Vision Assessment Comments Pt able to read the clock correctly. M7 OT- IP Mobility and Balance Start: 10/25/23 16:09 Freq: Status: Active Protocol: Document 10/25/23 16:09 [facility] (Rec: 10/25/23 16:26 [facility] [id number]) OT-Transfer Assessment Comments Mobility Comments Pt needing 1-2 person assist for log rolling at this time. M8 OT- IP Objective Assessments Start: 10/25/23 16:09 Freq: Status: Active Protocol: Document 10/25/23 16:09 [facility] (Rec: 10/25/23 16:26 [facility] [id number]) OT Gross Range of Motion Upper Extremity Range of Motion ROM Impairments grossly WFL for AROM OT Strength Comments Strength Comments BUE WFL for age and lifestyle. M9 OT- IP Assessment and Plan Start: 10/25/23 16:09 Freq: Status: Active Protocol: Document 10/25/23 16:09 [facility] (Rec: 10/25/23 16:26 [facility] [id number]) OT Summary Assessment and Plan Potential Rehabilitation Potential Fair Analytic Complexity at Evaluation Moderate Summary OT Impairments Pain,Balance,Functional Mobility,Grooming,Dressing, Toileting,Bathing,Toilet Transfers,Shower Transfers, Activity Tolerance Progress Towards Goals Slow Progress due to Pain,Slow Progress due to Medical Issues,Slow Progress due to Activity Tolerance,Slow Progress due to Cognition Assessment Summary Pt MOD complexity and main barriers are pain, and needing two person assist for rolling in bed at this time. Pt looking to go to skilled rehab when medically stable. Goals Self-Feeding Goal Standby Assistance Grooming Goal Standby Assistance Dressing Goal Moderate Assistancex2 Toileting Goal Moderate Assistancex2 Bathing Goal Moderate Assistancex2 Toilet Transfer Goal Moderate Assistancex2 Shower Transfer Goal Moderate Assistancex2 OT-Other Goals Days to Meet Goals 20 Frequency of Treatment Frequency Of Treatment Once a Day Treatment Plan OT Treatment Plan ADL Training,Functional Mobility,Patient/Family Education,Discharge Planning Discharge Recommendations OT Discharge Recommendations SNF Rehab Transportation Needs at Discharge Stretcher/Ambulance
--- NOTE | 2023-10-25 12:35 | P.PN_ITS ---
Subjective Subjective Date Patient Seen: 10/25/23 Interval history: Tenderness unchanged, still focal. Exam Vital Signs (past 8 hours): - 10/25/23 05:00 10/25/23 05:00 10/25/23 06:00 Temperature Pulse Rate 71 70 Respiratory Rate 16 16 Blood Pressure 110/55 L Pulse Oximetry 93 94 Oxygen Delivery Method Oxygen Flow Rate 0 10/25/23 06:00 10/25/23 07:00 10/25/23 07:00 Temperature Pulse Rate 71 Respiratory Rate 17 Blood Pressure 107/52 L Pulse Oximetry 94 Oxygen Delivery Method Room Air Oxygen Flow Rate 0 10/25/23 07:01 10/25/23 07:01 10/25/23 08:00 Temperature Pulse Rate 71 75 Respiratory Rate 17 23 Blood Pressure 136/60 Pulse Oximetry 93 93 Oxygen Delivery Method Oxygen Flow Rate 10/25/23 08:01 10/25/23 08:01 10/25/23 08:37 Temperature Pulse Rate 76 Respiratory Rate 22 Blood Pressure 128/98 H 120/77 Pulse Oximetry 94 Oxygen Delivery Method Oxygen Flow Rate 10/25/23 08:37 10/25/23 09:00 10/25/23 09:00 Temperature Pulse Rate 79 81 Respiratory Rate 26 H 22 Blood Pressure 128/79 Pulse Oximetry 93 90 L Oxygen Delivery Method Oxygen Flow Rate 10/25/23 09:00 10/25/23 09:31 10/25/23 09:31 Temperature 97.7 F Pulse Rate 81 Respiratory Rate 18 Blood Pressure 107/59 L Pulse Oximetry 94 Oxygen Delivery Method Oxygen Flow Rate 10/25/23 10:00 10/25/23 10:01 10/25/23 10:01 Temperature Pulse Rate 83 82 Respiratory Rate 17 16 Blood Pressure 118/55 L Pulse Oximetry 92 92 Oxygen Delivery Method Oxygen Flow Rate 10/25/23 10:31 10/25/23 10:31 10/25/23 11:00 Temperature Pulse Rate 80 80 Respiratory Rate 16 15 Blood Pressure 118/59 L Pulse Oximetry 94 93 Oxygen Delivery Method Oxygen Flow Rate 10/25/23 11:01 10/25/23 11:01 10/25/23 11:31 Temperature Pulse Rate 80 Respiratory Rate 15 Blood Pressure 113/53 L 97/56 L Pulse Oximetry 93 Oxygen Delivery Method Oxygen Flow Rate 10/25/23 11:31 Temperature Pulse Rate 81 Respiratory Rate 17 Blood Pressure Pulse Oximetry 95 Oxygen Delivery Method Oxygen Flow Rate Oxygen Delivery Method Room Air Oxygen Flow Rate 0 Narrative Exam Narrative: focal Left sided tenderness. Hypotension likely driven by neurologic source. Objective Labs 10/25/23 04:49 10/25/23 04:49 Labs: Laboratory Results - last 24 hr 10/24/23 10/24/23 10/25/23 13:55 18:52 04:49 WBC 6.6 RBC 3.87 L Hgb 12.1 L Hct 35.8 L MCV 92.6 MCH 31.3 MCHC 33.8 RDW 17.8 H Plt Count 184 Neut % (Auto) Not Reportable Lymph % (Auto) Not Reportable [place] % (Auto) Not Reportable Eos % (Auto) Not Reportable Baso % (Auto) Not Reportable Lymph # (Auto) Not Reportable [place] # (Auto) Not Reportable Baso # (Auto) Not Reportable Total Counted 100 Seg Neutrophils % 52.0 Band Neutrophils % 23.0 H Lymphocytes % (Manual) 23.0 L Monocytes % (Manual) 1.0 L Metamyelocytes % 1.0 H Neutrophils # (Manual) 4950 RBC Morphology See below Anisocytosis 1+ H PT 27.4 H INR 2.4 H Sodium 139 Potassium 3.7 Chloride 111 H Carbon Dioxide 22 BUN 32 H Creatinine 1.17 Estimated GFR > 60 BUN/Creatinine Ratio 27.4 H Glucose 160 H Lactate 2.3 H Calcium 8.2 L Total Bilirubin 1.5 H AST 23 ALT 32 Alkaline Phosphatase 50 Lactate Dehydrogenase 218 Total Protein 5.2 L Albumin 2.5 L Globulin 2.7 Albumin/Globulin Ratio 0.9 L TSH 0.68 Urine Color Yellow Urine Appearance Clear Urine pH 5.5 Ur Specific [place] 1.010 Urine Protein Negative Urine Glucose (UA) Negative Urine Ketones Negative Urine Occult Blood Negative Urine Nitrate Negative Urine Bilirubin Negative Urine Urobilinogen 1.0 Ur Leukocyte Esterase Negative Urine RBC None seen Urine WBC None seen Ur Squamous Epith Cells None seen Urine Bacteria None seen Ur Culture Indicated? Cult not indicated Vol Urine Centrifuged 10ml (spun) 10/25/23 10/25/23 06:50 08:40 WBC RBC Hgb Hct MCV MCH MCHC RDW Plt Count Neut % (Auto) Lymph % (Auto) [place] % (Auto) Eos % (Auto) Baso % (Auto) Lymph # (Auto) [place] # (Auto) Baso # (Auto) Total Counted Seg Neutrophils % Band Neutrophils % Lymphocytes % (Manual) Monocytes % (Manual) Metamyelocytes % Neutrophils # (Manual) RBC Morphology Anisocytosis PT 23.6 H INR 2.0 H Sodium Potassium Chloride Carbon Dioxide BUN Creatinine Estimated GFR BUN/Creatinine Ratio Glucose Lactate 2.1 Calcium Total Bilirubin AST ALT Alkaline Phosphatase Lactate Dehydrogenase Total Protein Albumin Globulin Albumin/Globulin Ratio TSH Urine Color Urine Appearance Urine pH Ur Specific [place] Urine Protein Urine Glucose (UA) Urine Ketones Urine Occult Blood Urine Nitrate Urine Bilirubin Urine Urobilinogen Ur Leukocyte Esterase Urine RBC Urine WBC Ur Squamous Epith Cells Urine Bacteria Ur Culture Indicated? Vol Urine Centrifuged [facility] Social History household members: spouse Smoking Status: Former smoker alcohol intake: former Assessment & Plan Assessment & Plan narrative: I view abd film to r/o increase free air. If +increase free air(seen on plain film) then repeat CTscan. continue medical management and diet. Switch to po pain meds as needed as long as pressure holds. Time Spent With Patient Time with patient: less than 30 minutes
--- NOTE | 2023-10-25 12:40 | DI.RAD.S_ITS ---
PROCEDURE: XR ABDOMEN 1V INDICATIONS: free air? TECHNIQUE: [id number] decubitus film was obtained COMPARISON: [facility], CT, CT ABDOMEN PELVIS W CON, 10/23/2023, 19:03. [facility], CR, XR CHEST FOR PICC 1V, 10/24/2023, 10:38. FINDINGS: Free air is present within the abdomen along the anti dependent right lateral abdominal wall. Air-fluid levels as well as gas outlining both sides of an otherwise normal loop of small bowel noted. No convincing evidence of small bowel obstruction. IMPRESSION: Increasing free air within the abdomen consistent with perforated bowel. Approved by: Rashawn Starr M.D. on 10/25/2023 at 13:45
[2023-10-25] MEDS: NOREPINEPHRINE BITARTRATE/D5W 4 MG/250 ML PLAST..BAG 57.152 MG IV (14:52)
--- NOTE | 2023-10-25 15:15 | DI.CT.S_ITS ---
PROCEDURE: CT ABDOMEN PELVIS W CON INDICATIONS: increased free air TECHNIQUE: After the administration of intravenous contrast, axial sections acquired from the lung bases to the pubic symphysis. Coronal and sagittal reformats were performed. For radiation dose reduction, the following was used: automated exposure control, adjustment of mA and/or kV according to patient size. COMPARISON: [facility], CT, CT ABDOMEN PELVIS W CON, 10/23/2023, 19:03. FINDINGS: Lower thorax: Left-sided pacemaker/defibrillator in good position. Heart size normal. Small bibasilar pleural effusions with atelectasis and or infiltrate Liver: Normal in size and attenuation. No contour deformity present. Biliary system: Cholecystectomy. No intra or extrahepatic bile duct dilation. Pancreas: Unremarkable without mass or inflammation evident. Spleen: Normal in size and density. Adrenals: Small low-density left adrenal nodule 1.7 cm, likely adenoma Reproductive system: Unremarkable as visualized. Urinary system: Normal renal size and attenuation. Bilateral renal cysts measure up to 5.5 cm on the right. Nonobstructive left renal calculus. No renal calculi, hydronephrosis, or solid mass present. Badillo catheter in the bladder Gastrointestinal system: Large volume free air now present, much increased from the prior exam. Fluid and air pocket in the left lower quadrant measures 11 by 3.9 cm likely reflecting developing abscess. Advanced sigmoid diverticulosis. There is generalized inflammatory changes present in the mesentery in the left lower quadrant, likely site of perforation. No bowel obstruction. Vasculature: The IVC, aorta and iliac vasculature are unremarkable. Abdominal wall: Abdominal wall intact without evidence of ventral or inguinal hernias. Musculoskeletal: Normal bone mineralization. Degenerative disc disease and arthropathy noted in lower lumbar spine. Large osteophyte at L3-4 results in severe central stenosis. No acute fractures. IMPRESSION: Large volume pneumoperitoneum with generalized inflammatory change in the left lower quadrant, consistent with perforated bowel abscess. Advise surgical consult. Encapsulated fluid collection left lower quadrant with fluid and air likely reflects developing abscess. Approved by: Rashawn Starr M.D. on 10/25/2023 at 16:52
--- NOTE | 2023-10-25 16:10 | PC.NURSE ---
Patient in pain throughout shift, rating from 7-10. Abdomen still extremely tender to touch in any location. Declining any food, resistant to PO meds and fluids. Abdominal x-ray and CT ordered by Dr Valdez.
--- NOTE | 2023-10-25 17:20 | P.PN_ITS ---
Subjective Subjective Date Patient Seen: 10/25/23 Time Patient Seen: 17:20 Interval history: Patient became progressively more uncomfortable today. Had to restart pressor support for soft BP. Abd film showed increase in free air. CT scan confirms progression of the intra abdominal process. Exam Vital Signs (past 8 hours): - 10/25/23 09:31 10/25/23 09:31 10/25/23 10:00 Temperature Pulse Rate 81 83 Respiratory Rate 18 17 Blood Pressure 107/59 L Pulse Oximetry 94 92 10/25/23 10:01 10/25/23 10:01 10/25/23 10:31 Temperature Pulse Rate 82 80 Respiratory Rate 16 16 Blood Pressure 118/55 L Pulse Oximetry 92 94 10/25/23 10:31 10/25/23 11:00 10/25/23 11:01 Temperature Pulse Rate 80 Respiratory Rate 15 Blood Pressure 118/59 L 113/53 L Pulse Oximetry 93 10/25/23 11:01 10/25/23 11:31 10/25/23 11:31 Temperature Pulse Rate 80 81 Respiratory Rate 15 17 Blood Pressure 97/56 L Pulse Oximetry 93 95 10/25/23 12:00 10/25/23 12:01 10/25/23 12:01 Temperature Pulse Rate 81 81 Respiratory Rate 18 18 Blood Pressure 93/54 L Pulse Oximetry 92 92 10/25/23 12:31 10/25/23 12:31 10/25/23 12:56 Temperature Pulse Rate 79 Respiratory Rate 14 Blood Pressure 79/46 L 104/47 L Pulse Oximetry 88 L 10/25/23 12:56 10/25/23 13:00 10/25/23 13:00 Temperature Pulse Rate 81 80 Respiratory Rate 14 15 Blood Pressure 88/37 L Pulse Oximetry 84 L 94 10/25/23 13:01 10/25/23 13:01 10/25/23 13:31 Temperature Pulse Rate 80 Respiratory Rate 14 Blood Pressure 92/42 L 74/35 L Pulse Oximetry 94 10/25/23 13:31 10/25/23 13:32 10/25/23 13:32 Temperature Pulse Rate 79 79 Respiratory Rate 14 20 Blood Pressure 73/43 L Pulse Oximetry 93 93 10/25/23 13:42 10/25/23 13:42 10/25/23 14:00 Temperature Pulse Rate 80 78 Respiratory Rate 20 16 Blood Pressure 75/38 L Pulse Oximetry 90 L 93 10/25/23 14:00 10/25/23 14:15 10/25/23 14:15 Temperature Pulse Rate 78 Respiratory Rate 17 Blood Pressure 75/44 L 73/42 L Pulse Oximetry 94 10/25/23 14:18 10/25/23 14:18 10/25/23 14:30 Temperature Pulse Rate 77 77 Respiratory Rate 16 16 Blood Pressure 73/42 L Pulse Oximetry 93 93 10/25/23 14:30 10/25/23 14:35 10/25/23 14:35 Temperature Pulse Rate 77 Respiratory Rate 15 Blood Pressure 76/41 L 75/42 L Pulse Oximetry 94 10/25/23 14:45 10/25/23 14:45 10/25/23 15:00 Temperature 97.3 F L Pulse Rate 77 Respiratory Rate 17 Blood Pressure 82/44 L 81/42 L Pulse Oximetry 94 10/25/23 15:00 10/25/23 15:15 10/25/23 15:15 Temperature Pulse Rate 77 77 Respiratory Rate 15 16 Blood Pressure 83/44 L Pulse Oximetry 94 94 10/25/23 15:30 10/25/23 15:30 10/25/23 16:04 Temperature Pulse Rate 77 Respiratory Rate 16 Blood Pressure 82/44 L 96/55 L Pulse Oximetry 94 10/25/23 16:04 10/25/23 16:15 10/25/23 16:15 Temperature Pulse Rate 83 82 Respiratory Rate 20 20 Blood Pressure 95/51 L Pulse Oximetry 95 94 10/25/23 16:30 10/25/23 16:30 10/25/23 16:45 Temperature Pulse Rate 82 Respiratory Rate 21 Blood Pressure 93/52 L 95/50 L Pulse Oximetry 93 10/25/23 16:45 Temperature Pulse Rate 80 Respiratory Rate 19 Blood Pressure Pulse Oximetry 94 Oxygen Delivery Method Room Air Oxygen Flow Rate 0 Narrative Exam Narrative: Abdomen distended and diffuse tenderness with motion and palpation. Bilateral lower extremities are purple and ischemic. Cognitive is acute distress but awake and aware. CTscan confirms progression of intra abdominal process to my reading w/o options of minimal invasive salvage. Discussed with patient and family (son) that patient is terminal, not a surgical candidate and not a candidate for transfer to another facility (which will not change his outcome anyway). Objective Labs 10/25/23 04:49 10/25/23 04:49 Labs: Laboratory Results - last 24 hr 10/24/23 10/25/23 10/25/23 18:52 04:49 06:50 WBC 6.6 RBC 3.87 L Hgb 12.1 L Hct 35.8 L MCV 92.6 MCH 31.3 MCHC 33.8 RDW 17.8 H Plt Count 184 Neut % (Auto) Not Reportable Lymph % (Auto) Not Reportable [place] % (Auto) Not Reportable Eos % (Auto) Not Reportable Baso % (Auto) Not Reportable Lymph # (Auto) Not Reportable [place] # (Auto) Not Reportable Baso # (Auto) Not Reportable Total Counted 100 Seg Neutrophils % 52.0 Band Neutrophils % 23.0 H Lymphocytes % (Manual) 23.0 L Monocytes % (Manual) 1.0 L Metamyelocytes % 1.0 H Neutrophils # (Manual) 4950 RBC Morphology See below Anisocytosis 1+ H PT 27.4 H INR 2.4 H Sodium 139 Potassium 3.7 Chloride 111 H Carbon Dioxide 22 BUN 32 H Creatinine 1.17 Estimated GFR > 60 BUN/Creatinine Ratio 27.4 H Glucose 160 H Lactate 2.3 H 2.1 Calcium 8.2 L Total Bilirubin 1.5 H AST 23 ALT 32 Alkaline Phosphatase 50 Lactate Dehydrogenase 218 Total Protein 5.2 L Albumin 2.5 L Globulin 2.7 Albumin/Globulin Ratio 0.9 L TSH 0.68 10/25/23 08:40 WBC RBC Hgb Hct MCV MCH MCHC RDW Plt Count Neut % (Auto) Lymph % (Auto) [place] % (Auto) Eos % (Auto) Baso % (Auto) Lymph # (Auto) [place] # (Auto) Baso # (Auto) Total Counted Seg Neutrophils % Band Neutrophils % Lymphocytes % (Manual) Monocytes % (Manual) Metamyelocytes % Neutrophils # (Manual) RBC Morphology Anisocytosis PT 23.6 H INR 2.0 H Sodium Potassium Chloride Carbon Dioxide BUN Creatinine Estimated GFR BUN/Creatinine Ratio Glucose Lactate Calcium Total Bilirubin AST ALT Alkaline Phosphatase Lactate Dehydrogenase Total Protein Albumin Globulin Albumin/Globulin Ratio TSH PFSH Social History household members: spouse Smoking Status: Former smoker alcohol intake: former Assessment & Plan Assessment & Plan narrative: Irreversible demise for perforated diverticulitis. Plan: family aware and coming in to bedside to join son. Goal is to use pressors to maintain the ability to interact with family as long as possible (as long as comfort can be provided maintained as well). Will continue IV antibiotics on the slim chance he survives the night and responds to medical management only. Medical team aware. Time Spent With Patient Time with patient: 70 minutes or more, with 50% spent counseling/coordinating
--- NOTE | 2023-10-25 17:54 | PT-IP ANOTE ---
checked on pt is lethargic and unable to keeps eyes open. talked to Dr. Valdez and agreed to hold PT eval today and to check back tomorrow.
--- NOTE | 2023-10-25 17:57 | PM.PN.1 ---
Subjective Subjective Date Patient Seen: 10/25/23 Time Patient Seen: 17:57 Interval history: Patient seen in follow-up of surgical visit patient with worsening condition CT scan shows worsening colonic rupture. With increasing air and material. Blood pressure continues to decrease in need increasing support. Patient with increasing pain requirements. Exam Vital Signs (past 8 hours): - 10/25/23 10:00 10/25/23 10:01 10/25/23 10:01 Temperature Pulse Rate 83 82 Respiratory Rate 17 16 Blood Pressure 118/55 L Pulse Oximetry 92 92 10/25/23 10:31 10/25/23 10:31 10/25/23 11:00 Temperature Pulse Rate 80 80 Respiratory Rate 16 15 Blood Pressure 118/59 L Pulse Oximetry 94 93 10/25/23 11:01 10/25/23 11:01 10/25/23 11:31 Temperature Pulse Rate 80 Respiratory Rate 15 Blood Pressure 113/53 L 97/56 L Pulse Oximetry 93 10/25/23 11:31 10/25/23 12:00 10/25/23 12:01 Temperature Pulse Rate 81 81 Respiratory Rate 17 18 Blood Pressure 93/54 L Pulse Oximetry 95 92 10/25/23 12:01 10/25/23 12:31 10/25/23 12:31 Temperature Pulse Rate 81 79 Respiratory Rate 18 14 Blood Pressure 79/46 L Pulse Oximetry 92 88 L 10/25/23 12:56 10/25/23 12:56 10/25/23 13:00 Temperature Pulse Rate 81 Respiratory Rate 14 Blood Pressure 104/47 L 88/37 L Pulse Oximetry 84 L 10/25/23 13:00 10/25/23 13:01 10/25/23 13:01 Temperature Pulse Rate 80 80 Respiratory Rate 15 14 Blood Pressure 92/42 L Pulse Oximetry 94 94 10/25/23 13:31 10/25/23 13:31 10/25/23 13:32 Temperature Pulse Rate 79 79 Respiratory Rate 14 20 Blood Pressure 74/35 L Pulse Oximetry 93 93 10/25/23 13:32 10/25/23 13:42 10/25/23 13:42 Temperature Pulse Rate 80 Respiratory Rate 20 Blood Pressure 73/43 L 75/38 L Pulse Oximetry 90 L 10/25/23 14:00 10/25/23 14:00 10/25/23 14:15 Temperature Pulse Rate 78 Respiratory Rate 16 Blood Pressure 75/44 L 73/42 L Pulse Oximetry 93 10/25/23 14:15 10/25/23 14:18 10/25/23 14:18 Temperature Pulse Rate 78 77 Respiratory Rate 17 16 Blood Pressure 73/42 L Pulse Oximetry 94 93 10/25/23 14:30 10/25/23 14:30 10/25/23 14:35 Temperature Pulse Rate 77 77 Respiratory Rate 16 15 Blood Pressure 76/41 L Pulse Oximetry 93 94 10/25/23 14:35 10/25/23 14:45 10/25/23 14:45 Temperature 97.3 F L Pulse Rate 77 Respiratory Rate 17 Blood Pressure 75/42 L 82/44 L Pulse Oximetry 94 10/25/23 15:00 10/25/23 15:00 10/25/23 15:15 Temperature Pulse Rate 77 Respiratory Rate 15 Blood Pressure 81/42 L 83/44 L Pulse Oximetry 94 10/25/23 15:15 10/25/23 15:30 10/25/23 15:30 Temperature Pulse Rate 77 77 Respiratory Rate 16 16 Blood Pressure 82/44 L Pulse Oximetry 94 94 10/25/23 16:04 10/25/23 16:04 10/25/23 16:15 Temperature Pulse Rate 83 Respiratory Rate 20 Blood Pressure 96/55 L 95/51 L Pulse Oximetry 95 10/25/23 16:15 10/25/23 16:30 10/25/23 16:30 Temperature Pulse Rate 82 82 Respiratory Rate 20 21 Blood Pressure 93/52 L Pulse Oximetry 94 93 10/25/23 16:45 10/25/23 16:45 Temperature Pulse Rate 80 Respiratory Rate 19 Blood Pressure 95/50 L Pulse Oximetry 94 Oxygen Delivery Method Room Air Oxygen Flow Rate 0 Narrative Exam Narrative: Responsive but confused male in no acute distress Objective Labs 10/25/23 04:49 10/25/23 04:49 Labs: Laboratory Results - last 24 hr 10/24/23 10/25/23 10/25/23 18:52 04:49 06:50 WBC 6.6 RBC 3.87 L Hgb 12.1 L Hct 35.8 L MCV 92.6 MCH 31.3 MCHC 33.8 RDW 17.8 H Plt Count 184 Neut % (Auto) Not Reportable Lymph % (Auto) Not Reportable [place] % (Auto) Not Reportable Eos % (Auto) Not Reportable Baso % (Auto) Not Reportable Lymph # (Auto) Not Reportable [place] # (Auto) Not Reportable Baso # (Auto) Not Reportable Total Counted 100 Seg Neutrophils % 52.0 Band Neutrophils % 23.0 H Lymphocytes % (Manual) 23.0 L Monocytes % (Manual) 1.0 L Metamyelocytes % 1.0 H Neutrophils # (Manual) 4950 RBC Morphology See below Anisocytosis 1+ H PT 27.4 H INR 2.4 H Sodium 139 Potassium 3.7 Chloride 111 H Carbon Dioxide 22 BUN 32 H Creatinine 1.17 Estimated GFR > 60 BUN/Creatinine Ratio 27.4 H Glucose 160 H Lactate 2.3 H 2.1 Calcium 8.2 L Total Bilirubin 1.5 H AST 23 ALT 32 Alkaline Phosphatase 50 Lactate Dehydrogenase 218 Total Protein 5.2 L Albumin 2.5 L Globulin 2.7 Albumin/Globulin Ratio 0.9 L TSH 0.68 10/25/23 08:40 WBC RBC Hgb Hct MCV MCH MCHC RDW Plt Count Neut % (Auto) Lymph % (Auto) [place] % (Auto) Eos % (Auto) Baso % (Auto) Lymph # (Auto) [place] # (Auto) Baso # (Auto) Total Counted Seg Neutrophils % Band Neutrophils % Lymphocytes % (Manual) Monocytes % (Manual) Metamyelocytes % Neutrophils # (Manual) RBC Morphology Anisocytosis PT 23.6 H INR 2.0 H Sodium Potassium Chloride Carbon Dioxide BUN Creatinine Estimated GFR BUN/Creatinine Ratio Glucose Lactate Calcium Total Bilirubin AST ALT Alkaline Phosphatase Lactate Dehydrogenase Total Protein Albumin Globulin Albumin/Globulin Ratio TSH PFSH Social History household members: spouse Smoking Status: Former smoker alcohol intake: former Assessment & Plan Assessment & Plan narrative: Worsening colonic rupture. Discussed with Dr. Valdez. She feels like this is not a surgical candidate with his low blood pressure would not survive surgical intervention. Does not feel as if transfer would be appropriate secondary to similar reasons. Patient is family here. Extensive discussion with family about terminal event. Options available. Certainly we need to discontinue full code status. Which they agree with. They want him comfortable will start morphine drip. They are not ready to discontinue pressure support despite the fact that we discussed that this would prolong life to some extent. There comfortable without would like to make decisions based on how things go over the next 24 hours and we will proceed from there. Patient is not appropriately awake to make these decisions on his own and family and were included which have decided on this approach. We will set up.
[2023-10-25] MEDS: NOREPINEPHRINE BITARTRATE/D5W 4 MG/250 ML PLAST..BAG 78.585 MG IV ×2 (18:02→20:54)
[2023-10-25] MEDS: MORPHINE 50 MG in SODIUM CHLORIDE 0.9% 45 ML IV (18:29)
[2023-10-26] VITALS: PULSE 72; RESP 29; O2SAT 96
[2023-10-26 00:01] VITALS: BP 68/38; PULSE 72; RESP 28; O2SAT 96
[2023-10-26 00:13] VITALS: BP 87/50; PULSE 72; RESP 13; O2SAT 96
[2023-10-26] MEDS: NOREPINEPHRINE BITARTRATE/D5W 4 MG/250 ML PLAST..BAG 78.585 MG IV (00:22)
[2023-10-26 00:56] VITALS: BP 98/51; PULSE 73; RESP 12; O2SAT 97
[2023-10-26 01:00] VITALS: PULSE 73; RESP 11; O2SAT 97
[2023-10-26] MEDS: PIPERACILLIN/TAZO 3.375 GM in SODIUM CHLORIDE 0.9% 100 ML IV (02:28)
[2023-10-26] MEDS: NOREPINEPHRINE BITARTRATE/D5W 4 MG/250 ML PLAST..BAG 35.72 MG IV (02:53)
--- NOTE | 2023-10-26 06:58 | PM.PN.1 ---
Subjective Subjective Date Patient Seen: 10/26/23 Time Patient Seen: 06:58 Interval history: Patient seen at this morning. Patient is sedated comfortable. Respiratory rates low blood pressures been low families have been at bedside all night. Family care conference discussed intra-abdominal infection sepsis and poor surgical candidate. Family discussion again this morning. Patient's family want maximize comfort. They do not want to withdraw all care yet. Exam Vital Signs (past 8 hours): - 10/25/23 23:00 10/26/23 00:00 10/26/23 00:01 Pulse Rate 73 72 72 Respiratory Rate 32 H 29 H 28 H Blood Pressure Pulse Oximetry 97 96 96 10/26/23 00:01 10/26/23 00:13 10/26/23 00:13 Pulse Rate 72 Respiratory Rate 13 Blood Pressure 68/38 L 87/50 L Pulse Oximetry 96 10/26/23 00:56 10/26/23 00:56 10/26/23 01:00 Pulse Rate 73 73 Respiratory Rate 12 11 L Blood Pressure 98/51 L Pulse Oximetry 97 97 Oxygen Delivery Method Nasal Cannula Oxygen Flow Rate 0 Narrative Exam Narrative: Gen.: Patient is sedated unresponsive HEENT: HEENT oral mucosa is dry Cardio: S1-S2 pacemaker supported rhythm Respiratory: Shallow low respiration Abdomen: Tense and distended Extremities: Decreased pulses cold with some mottling Objective Labs 10/25/23 04:49 10/25/23 04:49 Labs: Laboratory Results - last 24 hr 10/25/23 10/25/23 06:50 08:40 PT 23.6 H INR 2.0 H Lactate 2.1 PFSH Social History household members: spouse Smoking Status: Former smoker alcohol intake: former Assessment & Plan Assessment and plan (1) Perforated diverticulum of intestine: Status: Acute Plan Colonic rupture Septic shock Glioblastoma Type 2 diabetes Prefer vascular disease Peripheral neuropathy Plan today. Patient with perforated diverticulitis with fluid in the abdomen and progression of disease. Patient with sepsis with hypoperfusion and hypotension. Family care conference last night to maximize comfort. Patient is on morphine. They did not want significant withdrawal of other support measures. Had a discussion with them this morning. Patient has progression of sepsis kidney dysfunction and hypotension. Will continue with morphine support. Care to the family. Anticipate patient to within the next 12-24 hours. PROFEE Charge codes Subsequent inpatient/observation care: [id number]
[2023-10-26] MEDS: NOREPINEPHRINE BITARTRATE/D5W 4 MG/250 ML PLAST..BAG 71.441 MG IV ×2 (07:41→11:19)
[2023-10-26] MEDS: MORPHINE 50 MG in SODIUM CHLORIDE 0.9% 45 ML IV (07:56)
[2023-10-26 08:00] VITALS: BP 98/49; PULSE 70; RESP 12; O2SAT 97
--- NOTE | 2023-10-26 08:53 | PT-IP ANOTE ---
EMR reviewed and pt continues not medically stable to do PT. checked with nurse and pt is on comfort care. will d/c PT eval order.
--- NOTE | 2023-10-26 19:45 | PC.NURSE ---
pt is comfort care; family at bedside all shift; morphine gtt is at 4mg/hr and pt is resting quietly; did open eyes during repositioning and say ow and morphine was increased to 4; family has been updated throughout the shift
--- NOTE | 2023-10-27 07:49 | CM.DPNOTE ---
DCP Note [employer] TECHNICIAN reviewed EMR. Per chart, pt early this morning, family at bedside. No further needs at this time. CM team will continue to follow as needed. BARRIE Jordan
--- NOTE | 2023-10-27 10:21 | PM.DDS.1 ---
Discharge Summary Hospital Course Date of Admission: 10/24/23 00:25 Date of : 10/26/23 Primary care provider: Yoly Pereira MD Consults: 10/24/23 01:11 Consult to Discharge Planning Routine Comment: 10/24/23 16:51 Consult to Physical Therapy Evaluate & Treat Comment: Physician Instructions: Evaluate and Treat Discharge Diagnosis: Colonic rupture due to perforated diverticulum due to diverticulosis Septic shock Glioblastoma Type 2 diabetes Peripheral vascular disease Peripheral neuropathy Hospital Course: Patient was admitted to the hospital diagnosed with glioblastoma in August underwent surgery. Patient was residing at a skilled care facility and had increasing abdominal distention and lower quadrant abdominal pain patient was brought to the emergency department and was shown to have elevated lactic acid and CT evidence of microperforation of the sigmoid colon. Surgery was consulted and patient was admitted to the hospital for IV fluids IV antibiotics and bowel rest. Patient had increasing hypotension was moved to the ICU and started on pressors. Patient was continued on IV antibiotics. Despite this patient was having increasing abdominal pain and worsening decline of his health a repeat CT scan done 2 days later showed perforation and beginning of abscess formation. Based on surgical recommendations and care conference with family he was not a good surgical candidate to begin with but this became significantly worse with ongoing infection and risk. Due to patient's chronic debilitated case from his recent glioblastoma surgery. After discussion with patient's primary care physician and family elected patient to be on comfort measures. By the time that I saw the patient patient was receiving morphine and sedation and was unconscious. Family was at the bedside. Again discussed with family the acute care nature of his current health problem. Inpatient ultimately past 12 hours after my 1st encounter which was not unanticipated. Objective Labs 10/25/23 04:49 10/25/23 04:49
== END 2023-10-26 23:45 | disposition expired | DRG 871 ==
LOC: ED 18:13 → AC 22:08 → ICU 10-24 00:50
PROVIDERS: Emergency Medicine; Pharmacist Pharmacist Clinician (PhC)/ Clinical Pharmacy Specialist; Admitting Provider Family Medicine; Emergency Provider Emergency Medicine; Family Provider Family Medicine; PCP Family Medicine; Referring Provider Emergency Medicine; Visit Provider Family Medicine
DX: A41.9 Sepsis, unspecified organism (principal); R65.21 Severe sepsis with septic shock; K57.80 Diverticulitis of intestine, part unspecified, with perforation and abscess without bleeding; C71.9 Malignant neoplasm of brain, unspecified; K57.20 Diverticulitis of large intestine with perforation and abscess without bleeding; E11.42 Type 2 diabetes mellitus with diabetic polyneuropathy; I73.9 Peripheral vascular disease, unspecified; F32.A Depression, unspecified; E03.9 Hypothyroidism, unspecified; I95.9 Hypotension, unspecified; Z79.01 Long term (current) use of anticoagulants; Z51.5 Encounter for palliative care; Z87.891 Personal history of nicotine dependence
CPT/HCPCS: 36415; 36569; 36592; 74018; 74177; 80048; 80053; 81001; 81003; 82962; 83605; 83615; 83690; 84443; 85007; 85025; 85610; 87797; 93005; 96365; 96375; 97166; 99233; 99284; 99291; C8929; C9113; J1170; J1885; J2270; J2543; Q9957; Q9967